=== PATIENT | male | born 1935 | race Caucasian/White ===

== ENCOUNTER → 2023-07-14 08:45 | Outpatient (BNVA) | payer MEDICARE, OTHER, SELFPAY | PROVIDERS: PCP Internal Medicine; Visit Provider Internal Medicine | DX: I48.20 Chronic atrial fibrillation, unspecified (principal); Z51.81 Encounter for therapeutic drug level monitoring; Z79.01 Long term (current) use of anticoagulants | CPT/HCPCS: 85610; 99211 ==

== ENCOUNTER → 2023-07-28 08:48 | Outpatient (BNVA) | payer MEDICARE, OTHER, SELFPAY | PROVIDERS: PCP Internal Medicine; Visit Provider Internal Medicine | DX: I48.20 Chronic atrial fibrillation, unspecified (principal); Z79.01 Long term (current) use of anticoagulants; Z51.81 Encounter for therapeutic drug level monitoring | CPT/HCPCS: 85610; 99211 ==

== ENCOUNTER 2023-08-17 08:52 | Outpatient (AMB) | payer MEDICARE, OTHER, SELFPAY ==
[2023-08-17 08:57] VITALS: BP 112/62; PULSE 57; O2SAT 94; BMI 36.8
--- NOTE | 2023-08-17 08:57 | A.OFFVIS_ITS ---
Vital Signs 08/17/23 08:57 Height 5 ft 10 in Weight 256 lb 13.416 oz BMI 36.8 BP 112/62 Blood Pressure Location Lt brachial Position Sitting Pulse 57 Pulse Source Pulse Oximeter Pulse Oximetry (%) 94 Oxygen Delivery Method Room Air Intake Visit Reasons: Pneumonia : 6 month f/u Intake Note: pt is here for follow up and states he is doing well, just a balance issue,and had pacemaker put in. 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 Allergies oxycodone [From OXYCONTIN] Allergy (Unknown, Verified 08/17/23 09:02) Confusion Medication List - Last Reconciled 08/17/23 by Jelly Russell MD albuterol sulfate 90 mcg/actuation 2 puffs PO Q4-6H PRN aspirin 81 mg PO DAILY Breo Ellipta 200-25 mcg/dose (fluticasone furoate-vilanterol) 1 ea inhalation DAILY NS furosemide (Lasix) 40 mg PO BID@0900,1700 lisinopril 2.5 mg PO DAILY metoprolol succinate ER 25 mg PO DAILY oxybutynin chloride ER 5 mg PO DAILY potassium chloride ER 20 mEq PO DAILY simvastatin 10 mg PO BEDTIME terazosin 10 mg PO BEDTIME trazodone 100 mg PO BEDTIME PRN warfarin 5 mg See Protocol PO DAILY@1700 Do you need a note to return to daycare/school/sports/work: No HPI HPI Pneumonia : 6 month f/u: Details: THIS GENTLEMAN IS 88 YEARS OLD, MODERATELY OBESE WITH DIAGNOSIS OF OBSTRUCTIVE SLEEP APNEA. HE USES CPAP RELIGIOUSLY EVERY NIGHT AND SLEEPS ALMOST 7 HOURS EVERY NIGHT. NO ISSUES WITH THE CPAP DEVICE EXCEPT FOR SLIGHT AIR LEAK. DENIES ANY DAYTIME SLEEPINESS. HE HAS COPD AND IS WELL CONTROLLED WITH BREO ELLIPTA ONCE A DAY AND ALBUTEROL ONLY ONCE IN A WHILE. HIS MAIN ISSUE IS POOR BALANCE BUT HE IS COPING WITH THAT OKAY. [facility] Medical History COPD (chronic obstructive pulmonary disease) INGRID on CPAP Obesity (BMI 35.0-39.9 without comorbidity) Prostate CA Afib Surgical History Hx of cataract surgery Hx of rotator cuff surgery History of bilateral knee replacement Hx of artificial heart valve replacement Social History Household Members: None Housing: House Do you presently have visiting nurse or other home services: No Alcohol intake: never Patient Tobacco Use Status: Former Tobacco user Tobacco use type: Cigar Advance Directives Date on File: 01/20/20 service: Yes Current occupational 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: 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 Review of Systems Const All systems reviewed & are unremarkable except as noted in HPI and below Eyes Reports no additional complaints ENT Reports no additional complaints Card Denies chest pain, Denies irregular heart rhythm, Denies leg edema and Reports dyspnea on exertion Resp Reports as per HPI, Denies cough, Reports dyspnea on exertion and Denies wheezing GI Reports no additional complaints Reports no additional complaints Musc Reports arthralgias (Mild) Skin/Breast Reports system reviewed and no additional complaints, except as documented Neuro Reports no additional complaints Psych Reports no additional complaints Aller/Immun Denies wheezing Physical Exam Vital Signs: Last Vital Signs Pulse 57 08/17/23 08:57 BP 112/62 08/17/23 08:57 Pulse Ox 94 08/17/23 08:57 Oxygen Delivery Method Room Air 08/17/23 08:57 BMI result Body Mass Index 36.8 Const General: comfortable, no acute distress, alert and awake Orientation/consciousness: patient oriented x3 HEENT Head: Yes normal to inspection General nose exam: No nasal polyps present and No nasal discharge present Face and sinus: Yes sinuses nontender Mouth: oropharynx normal Throat: Yes posterior oropharynx normal Eyes General: appearance normal, both eyes and all related structures Neck Neck: Yes normal visual inspection, Yes no lymphadenopathy, Yes trachea midline and Yes no JVD Thyroid: Thyroid normal Chest Chest palpation & inspection: normal inspection of the chest, normal palpation of entire chest wall and no tenderness Resp Other: Percussion note is resonant, breath sounds equal on both sides with slightly prolonged expiratory phase. No wheezes crepitations or rhonchi are heard. Cardio Palpation: normal PMI Rate: regular rate Rhythm: regular rhythm Heart sounds: no gallops and no murmurs Peripheral pulses: Peripheral pulses 2+ throughout GI Palpation (GI): Soft to palpation, Tenderness to palpation present (GI), No hepatosplenomegaly present, Palpable mass present and Other GI palpation findings present (Abdomen is protuberant) Auscultation: normal bowel sounds Back/Spine/Pelvis Thoracic/Lumbar Spine: thoracic and lumbar spine normal to inspection Skin General skin exam: no rashes or lesions noted and dry skin Neuro General: patient oriented x3 and no focal motor deficits Cranial nerves: Yes CN's II-XII intact bilaterally Extrem General: Yes normal to inspection, Yes no clubbing, cyanosis or edema and Yes no calf tenderness Psych Appearance: grossly normal and well kempt Speech and movement: Normal speech and movement present Results Reviewed Results Reviewed: COMPLIANCE REPORT FOR THE LAST 30 NIGHTS IS REVIEWED HE HAS USED 30/30 NIGHTS., 100% AVERAGE USE IT PER NIGHT. 7 HOURS 28 MINUTES PRESSURE SETTING IS 13 CM. THERE IS SLIGHT AIR LEAK MAXIMUM 55.3. RESIDUAL AHI ONLY 2.6 Assessment & Plan Assessment & Plan (1) COPD (chronic obstructive pulmonary disease): Comment: Chronic obstructive pulmonary disease, for the past many years, remaining very stable. Code(s): J44.9 - Chronic obstructive pulmonary disease, unspecified Category: Medical Plan: [place] : CONTINUE BREO 200-25 1 INHALATION DAILY. AND USE ALBUTEROL HFA 2 PUFFS Q 4-6 HOURS ONLY P.R.N. (2) Obesity (BMI 35.0-39.9 without comorbidity): Comment: HIS WEIGHT REMAINS UNCHANGED, HE HAS NO POTENTIAL TO LOSE MUCH WEIGHT, HE CANNOT EXERCISE. AND HE IS ALREADY WATCHING HIS DIET GOOD POSSIBLE. Code(s): E66.9 - Obesity, unspecified Category: Medical Plan: ABOVE (3) INGRID on CPAP: Comment: INGRID IS WELL CONTROLLED HE HAS BEEN USING CPAP VERY REGULARLY , HE IS VERY COMPLIANT. COMPLIANCE REPORT INDICATES EXCELLENT USE OF THE CPAP. Code(s): G47.33 - Obstructive sleep apnea (adult) (pediatric); Z99.89 - Dependence on other enabling machines and devices Category: Medical Plan: COMMENDED FOR GOOD COMPLIANCE AND ADVISED TO CONTINUE USING THE CPAP EVERY NIGHT. Coding Level of Care Code Est Pt Level 3 (60587) Diagnoses COPD (chronic obstructive pulmonary disease) J44.9 Obesity (BMI 35.0-39.9 without comorbidity) E66.9 INGRID on CPAP G47.33; Z99.89
== END 2023-08-17 09:12 | disposition home or self-care (01) ==
PROVIDERS: PCP Internal Medicine; Visit Provider Internal Medicine
DX: J44.9 Chronic obstructive pulmonary disease, unspecified (principal); E66.9 Obesity, unspecified; G47.33 Obstructive sleep apnea (adult) (pediatric); Z99.89 Dependence on other enabling machines and devices
CPT/HCPCS: 99213

== ENCOUNTER → 2023-08-17 08:52 | Outpatient (BNVA) | payer MEDICARE, OTHER, SELFPAY | PROVIDERS: PCP Internal Medicine; Visit Provider Internal Medicine | DX: J44.9 Chronic obstructive pulmonary disease, unspecified (principal); G47.33 Obstructive sleep apnea (adult) (pediatric); E66.9 Obesity, unspecified; Z68.36 Body mass index [BMI] 36.0-36.9, adult; Z79.899 Other long term (current) drug therapy; Z99.89 Dependence on other enabling machines and devices | CPT/HCPCS: 99212 ==

== ENCOUNTER 2023-08-24 09:44 | Outpatient (AMB) | payer MEDICARE, OTHER, SELFPAY ==
--- NOTE | 2023-08-24 09:52 | MHC.OFFVISCO ---
Intake Intake Visit Reasons: Anticoagulation Allergies oxycodone [From OXYCONTIN] Allergy (Unknown, Verified 08/24/23 09:44) Confusion Medication List - Last Reconciled 08/24/23 by Heidy Cerda RN albuterol sulfate 90 mcg/actuation 2 puffs PO Q4-6H PRN aspirin 81 mg PO DAILY Breo Ellipta 200-25 mcg/dose (fluticasone furoate-vilanterol) 1 ea inhalation DAILY NS furosemide (Lasix) 40 mg PO BID@0900,1700 lisinopril 2.5 mg PO DAILY metoprolol succinate ER 25 mg PO DAILY oxybutynin chloride ER 5 mg PO DAILY potassium chloride ER 20 mEq PO DAILY simvastatin 10 mg PO BEDTIME terazosin 10 mg PO BEDTIME trazodone 100 mg PO BEDTIME PRN warfarin 5 mg See Protocol PO DAILY@1700 Nursing Note INR: 2.1- in therapeutic range of 2-3 Medications and supplements reviewed- pt states trazadone may be reduced to 50mg or may stop taking per md due to night issues No changes in health, diet, medications, or supplements, Denies any signs and symptoms of bleeding or bruising or clotting. 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
[2023-08-25 08:12] LABS: Prothrombin Time Whole Bld POC 24.9 sec (11.1-13.5); ~PT, ~INR - Anti Coag Clinic 2.1 (0.9-1.1)
== END 2023-08-24 10:03 | disposition home or self-care (01) ==
LOC: HO.ACS 09:44
PROVIDERS: PCP Internal Medicine; Visit Provider Internal Medicine
DX: Z79.01 Long term (current) use of anticoagulants (principal)

== ENCOUNTER → 2023-08-24 09:44 | Outpatient (BNVA) | payer MEDICARE, OTHER, SELFPAY | PROVIDERS: PCP Internal Medicine; Visit Provider Internal Medicine | DX: I48.20 Chronic atrial fibrillation, unspecified (principal); Z51.81 Encounter for therapeutic drug level monitoring; Z79.01 Long term (current) use of anticoagulants | CPT/HCPCS: 85610; 99211 ==

== ENCOUNTER 2023-09-07 08:49 | Outpatient (AMB) | payer MEDICARE, OTHER, SELFPAY ==
[2023-09-07 08:57] LABS: Prothrombin Time Whole Bld POC 27.3 sec (11.1-13.5); ~PT, ~INR - Anti Coag Clinic 2.3 (0.9-1.1)
--- NOTE | 2023-09-07 09:02 | MHC.OFFVISCO ---
Intake Intake Visit Reasons: Anticoagulation Allergies oxycodone [From OXYCONTIN] Allergy (Unknown, Verified 09/07/23 08:50) Confusion Medication List - Last Reconciled 09/07/23 by Narcisa Cadet, ANTONI albuterol sulfate 90 mcg/actuation 2 puffs PO Q4-6H PRN aspirin 81 mg PO DAILY Breo Ellipta 200-25 mcg/dose (fluticasone furoate-vilanterol) 1 ea inhalation DAILY NS furosemide (Lasix) 40 mg PO BID@0900,1700 lisinopril 2.5 mg PO DAILY metoprolol succinate ER 25 mg PO DAILY oxybutynin chloride ER 5 mg PO DAILY potassium chloride ER 20 mEq PO DAILY simvastatin 10 mg PO BEDTIME terazosin 10 mg PO BEDTIME trazodone 100 mg PO BEDTIME PRN warfarin 5 mg See Protocol PO DAILY@1700 Nursing Note INR: 2.3 in therapeutic range of 2-3 Medications and supplements reviewed: Pt trialed stopping trazadone for 2 days only but then restarted due to nightmares and anxiety No changes in health, diet, medications, or supplements, Denies any signs and symptoms of bleeding or bruising or clotting. 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
== END 2023-09-07 09:07 | disposition home or self-care (01) ==
LOC: HO.ACS 08:49
PROVIDERS: PCP Internal Medicine; Visit Provider Internal Medicine
DX: Z79.01 Long term (current) use of anticoagulants (principal)

== ENCOUNTER → 2023-09-07 08:49 | Outpatient (BNVA) | payer MEDICARE, OTHER, SELFPAY | PROVIDERS: PCP Internal Medicine; Visit Provider Internal Medicine | DX: I48.20 Chronic atrial fibrillation, unspecified (principal); Z79.01 Long term (current) use of anticoagulants; Z51.81 Encounter for therapeutic drug level monitoring | CPT/HCPCS: 85610; 99211 ==

== ENCOUNTER 2023-10-07 09:23 | Outpatient (AMB) | payer MEDICARE, OTHER, SELFPAY ==
--- NOTE | 2023-10-07 09:40 | MHC.OFFVISCO ---
Intake Intake Visit Reasons: Anticoagulation Allergies oxycodone [From OXYCONTIN] Allergy (Unknown, Verified 10/07/23 09:33) Confusion Medication List - Last Reconciled 10/07/23 by Heidy Cerda RN albuterol sulfate 90 mcg/actuation 2 puffs PO Q4-6H PRN aspirin 81 mg PO DAILY Breo Ellipta 200-25 mcg/dose (fluticasone furoate-vilanterol) 1 ea inhalation DAILY NS furosemide (Lasix) 40 mg PO BID@0900,1700 lisinopril 2.5 mg PO DAILY metoprolol succinate ER 25 mg PO DAILY oxybutynin chloride ER 5 mg PO DAILY potassium chloride ER 20 mEq PO DAILY simvastatin 10 mg PO BEDTIME terazosin 10 mg PO BEDTIME trazodone 100 mg PO BEDTIME PRN warfarin 5 mg See Protocol PO DAILY@1700 Nursing Note INR 1.6-?? out of therapeutic range of 2-3 Medications and supplements reviewed Patient status: pt amb with cane, denies missed dose Medications or supplements: no changes Diet: same Denies any signs and symptoms of bleeding or clotting or unusual bruising Bleeding, bruising, clotting discussed - trauma to left forearm/bandaid Nutritional guidance given: no greens for 2-3 days, eat reds to raise food list reviewed Dose: 7.5mg today then cont 5mg x 6, 2.5mg x 1 F/U INR Date : 1 week?? Patient verbalizing understanding of instructions given. pt states scheduled for proc 11/08/23- flexor tendon release left foot - states has been instructed to hold warfarin for 3 days Anti-Coag Initial Assessment Social Hx Patient Tobacco Use Status: Former Tobacco user Tobacco use type: Cigar alcohol intake: never Coding Level of Care Code Est Patient Level 1 Diagnoses Current use of anticoagulant therapy Z79.01 Results AMB INR Fingerstick AMB INR Fingerstick 1.6 Last Edit by Heidy Cerda RN on 10/07/23 09:43 Assessment & Plan Assessment & Plan (1) Current use of anticoagulant therapy: Code(s): Z79.01 - correction (current) use of anticoagulants Category: Medical
[2023-10-07 09:41] LABS: Prothrombin Time Whole Bld POC 19.7 sec (11.1-13.5); ~PT, ~INR - Anti Coag Clinic 1.6 (0.9-1.1)
== END 2023-10-07 09:58 | disposition home or self-care (01) ==
LOC: HO.ACS 09:23
PROVIDERS: PCP Internal Medicine; Visit Provider Internal Medicine
DX: Z79.01 Long term (current) use of anticoagulants (principal)

== ENCOUNTER → 2023-10-07 09:23 | Outpatient (BNVA) | payer MEDICARE, OTHER, SELFPAY | PROVIDERS: PCP Internal Medicine; Visit Provider Internal Medicine | DX: I48.20 Chronic atrial fibrillation, unspecified (principal); Z79.01 Long term (current) use of anticoagulants; Z51.81 Encounter for therapeutic drug level monitoring | CPT/HCPCS: 85610; 99211 ==

== ENCOUNTER 2023-10-12 09:44 | Outpatient (AMB) | payer MEDICARE, OTHER, SELFPAY ==
[2023-10-12 10:08] LABS: Prothrombin Time Whole Bld POC 23.5 sec (11.1-13.5)
--- NOTE | 2023-10-12 10:08 | MHC.OFFVISCO ---
Intake Intake Visit Reasons: Anticoagulation Allergies oxycodone [From OXYCONTIN] Allergy (Unknown, Verified 10/12/23 10:02) Confusion Medication List - Last Reconciled 10/12/23 by Heidy Cerda RN albuterol sulfate 90 mcg/actuation 2 puffs PO Q4-6H PRN aspirin 81 mg PO DAILY Breo Ellipta 200-25 mcg/dose (fluticasone furoate-vilanterol) 1 ea inhalation DAILY NS furosemide (Lasix) 40 mg PO BID@0900,1700 lisinopril 2.5 mg PO DAILY metoprolol succinate ER 25 mg PO DAILY oxybutynin chloride ER 5 mg PO DAILY potassium chloride ER 20 mEq PO DAILY simvastatin 10 mg PO BEDTIME terazosin 10 mg PO BEDTIME trazodone 100 mg PO BEDTIME PRN warfarin 5 mg See Protocol PO DAILY@1700 Nursing Note INR: 2.0- in therapeutic range of 2-3 Medications and supplements reviewed No changes in health, diet, medications, or supplements, Denies any signs and symptoms of bleeding or bruising or clotting. Bleeding, bruising, clotting discussed Nutritional guidance given -pt states has not had any greens, Dose: 5mg x 7 F/U INR: 2 weeks Patient verbalizes understanding of instructions given upcoming surgery 11/08/23. 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
== END 2023-10-12 10:47 | disposition home or self-care (01) ==
LOC: HO.ACS 09:44
PROVIDERS: PCP Internal Medicine; Visit Provider Internal Medicine
DX: Z79.01 Long term (current) use of anticoagulants (principal)

== ENCOUNTER → 2023-10-12 09:44 | Outpatient (BNVA) | payer MEDICARE, OTHER, SELFPAY | PROVIDERS: PCP Internal Medicine; Visit Provider Internal Medicine | DX: I48.20 Chronic atrial fibrillation, unspecified (principal); Z51.81 Encounter for therapeutic drug level monitoring; Z79.01 Long term (current) use of anticoagulants | CPT/HCPCS: 85610; 99211 ==

== ENCOUNTER 2023-10-26 09:25 | Outpatient (AMB) | payer MEDICARE, OTHER, SELFPAY ==
--- NOTE | 2023-10-26 10:03 | MHC.OFFVISCO ---
Intake Intake Visit Reasons: Anticoagulation Allergies oxycodone [From OXYCONTIN] Allergy (Unknown, Verified 10/26/23 09:43) Confusion Medication List - Last Reconciled 10/26/23 by Rafia White RN albuterol sulfate 90 mcg/actuation 2 puffs PO Q4-6H PRN aspirin 81 mg PO DAILY Breo Ellipta 200-25 mcg/dose (fluticasone furoate-vilanterol) 1 ea inhalation DAILY NS furosemide (Lasix) 40 mg PO BID@0900,1700 lisinopril 2.5 mg PO DAILY metoprolol succinate ER 25 mg PO DAILY oxybutynin chloride ER 5 mg PO DAILY potassium chloride ER 20 mEq PO DAILY simvastatin 10 mg PO BEDTIME terazosin 10 mg PO BEDTIME trazodone 100 mg PO BEDTIME PRN warfarin 5 mg See Protocol PO DAILY@1700 Nursing Note INR: 2.6 in therapeutic range Medications and supplements reviewed Pt to have flexor release left foot 11/08/23 with a 3 day hold - minor procedure no lovenox bridge, Denies any signs and symptoms of bleeding or bruising or clotting. Bleeding, bruising, clotting discussed Nutritional guidance given - resume greens 1 serving per week, after prpcedure avoid all greens and eat orange and reds Dose: 5mg dauly then hold 3 days per md then resume a booster dose of 7.5mg x 2 days then 5mg daily and f/u 1 week post procedure due to healong and ambulation capabilities F/U INR: 11/16/23 Patient verbalizes understanding of instructions given Anti-Coag Initial Assessment Social Hx Patient Tobacco Use Status: Former Tobacco user Tobacco use type: Cigar alcohol intake: never Coding Level of Care Code Est Patient Level 1 Diagnoses Current use of anticoagulant therapy Z79.01 Results AMB INR Fingerstick AMB INR Fingerstick 2.6 Last Edit by Rafia White RN on 10/26/23 09:56 MANUAL ENTRIES REQUIRED FOR POOR INTERFACING CAPABILITIES OF THE SYSTEM Assessment & Plan Assessment & Plan (1) Current use of anticoagulant therapy: Code(s): Z79.01 - [facility] (current) use of anticoagulants Category: Medical
[2023-10-26 10:18] LABS: Prothrombin Time Whole Bld POC 30.8 sec (11.1-13.5); ~PT, ~INR - Anti Coag Clinic 2.6 (0.9-1.1)
== END 2023-10-26 10:08 | disposition home or self-care (01) ==
LOC: HO.ACS 09:25
PROVIDERS: PCP Internal Medicine; Visit Provider Internal Medicine
DX: Z79.01 Long term (current) use of anticoagulants (principal)

== ENCOUNTER → 2023-10-26 09:25 | Outpatient (BNVA) | payer MEDICARE, OTHER, SELFPAY | PROVIDERS: PCP Internal Medicine; Visit Provider Internal Medicine | DX: I48.20 Chronic atrial fibrillation, unspecified (principal); Z79.01 Long term (current) use of anticoagulants; Z51.81 Encounter for therapeutic drug level monitoring | CPT/HCPCS: 85610; 99211 ==

== ENCOUNTER 2023-11-16 08:47 | Outpatient (AMB) | payer MEDICARE, OTHER, SELFPAY ==
[2023-11-16 09:09] LABS: Prothrombin Time Whole Bld POC 29.4 sec (11.1-13.5); ~PT, ~INR - Anti Coag Clinic 2.5 (0.9-1.1)
--- NOTE | 2023-11-16 09:09 | MHC.OFFVISCO ---
Intake Intake Visit Reasons: Anticoagulation Allergies oxycodone [From OXYCONTIN] Allergy (Unknown, Verified 11/16/23 09:02) Confusion Medication List - Last Reconciled 11/16/23 by Heidy Cerda RN albuterol sulfate 90 mcg/actuation 2 puffs PO Q4-6H PRN aspirin 81 mg PO DAILY Breo Ellipta 200-25 mcg/dose (fluticasone furoate-vilanterol) 1 ea inhalation DAILY NS furosemide (Lasix) 40 mg PO BID@0900,1700 lisinopril 2.5 mg PO DAILY metoprolol succinate ER 25 mg PO DAILY oxybutynin chloride ER 5 mg PO DAILY potassium chloride ER 20 mEq PO DAILY simvastatin 10 mg PO BEDTIME terazosin 10 mg PO BEDTIME trazodone 100 mg PO BEDTIME PRN warfarin 5 mg See Protocol PO DAILY@1700 Nursing Note INR: 2.5- in therapeutic range of 2-3 Medications and supplements reviewed- no changes No changes in health, diet, medications, or supplements, Denies any signs and symptoms of bleeding or bruising or clotting. Bleeding, bruising, clotting discussed Nutritional guidance given - pt has not had any greens [employer] enc 1-2 times a week Dose: 5mg x 7 F/U INR: 2 weeks Patient verbalizes understanding of instructions given pt s/p foot procedure on 11/08/23- 3 day hold of warfarin, restarted with 7.5mg on 11/08/23 and 11/09/23 Anti-Coag Initial Assessment Social Hx Patient Tobacco Use Status: Former Tobacco user Tobacco use type: Cigar alcohol intake: never Coding Level of Care Code Est Patient Level 1 Diagnoses Current use of anticoagulant therapy Z79.01 Assessment & Plan Assessment & Plan (1) Current use of anticoagulant therapy: Code(s): Z79.01 - [facility] (current) use of anticoagulants Category: Medical
== END 2023-11-16 09:18 | disposition home or self-care (01) ==
LOC: HO.ACS 08:47
PROVIDERS: PCP Internal Medicine; Visit Provider Internal Medicine
DX: Z79.01 Long term (current) use of anticoagulants (principal)

== ENCOUNTER → 2023-11-16 08:47 | Outpatient (BNVA) | payer MEDICARE, OTHER, SELFPAY | PROVIDERS: PCP Internal Medicine; Visit Provider Internal Medicine | DX: I48.20 Chronic atrial fibrillation, unspecified (principal); Z79.01 Long term (current) use of anticoagulants; Z51.81 Encounter for therapeutic drug level monitoring | CPT/HCPCS: 85610; 99211 ==

== ENCOUNTER 2023-11-30 08:53 | Outpatient (AMB) | payer MEDICARE, OTHER, SELFPAY ==
[2023-11-30 09:35] LABS: Prothrombin Time Whole Bld POC 24.2 sec (11.1-13.5)
--- NOTE | 2023-11-30 09:36 | MHC.OFFVISCO ---
Intake Intake Visit Reasons: Anticoagulation Allergies oxycodone [From OXYCONTIN] Allergy (Unknown, Verified 11/30/23 09:26) Confusion Medication List - Last Reconciled 11/30/23 by Heidy Cerda RN albuterol sulfate 90 mcg/actuation 2 puffs PO Q4-6H PRN aspirin 81 mg PO DAILY Breo Ellipta 200-25 mcg/dose (fluticasone furoate-vilanterol) 1 ea inhalation DAILY NS furosemide (Lasix) 40 mg PO BID@0900,1700 lisinopril 2.5 mg PO DAILY metoprolol succinate ER 25 mg PO BID oxybutynin chloride ER 5 mg PO DAILY potassium chloride ER 20 mEq PO BID simvastatin 10 mg PO BEDTIME terazosin 10 mg PO BEDTIME trazodone 100 mg PO BEDTIME PRN warfarin 5 mg See Protocol PO DAILY@1700 Nursing Note INR: 2.0- in therapeutic range of 2-3 Medications and supplements reviewed- potassium and metoprolol increased to bid- both no interaction with warfarin No changes in health, diet, medications, or supplements, Denies any signs and symptoms of bleeding or bruising or clotting. Bleeding, bruising, clotting discussed Nutritional guidance given - pt states has had one green in the past 2 weeks, would like to eat more greens enc to be consistent in dietary- eat greens twice per week or more Dose: 5mg x 6, 7.5mg x 1 per pt request for dosing increase F/U INR: 2 weeks Patient verbalizes understanding of instructions given Anti-Coag Initial Assessment Social Hx Patient Tobacco Use Status: Former Tobacco user Tobacco use type: Cigar alcohol intake: never Coding Level of Care Code Est Patient Level 1 Diagnoses Current use of anticoagulant therapy Z79.01 Assessment & Plan Assessment & Plan (1) Current use of anticoagulant therapy: Code(s): Z79.01 - skilled nursing (current) use of anticoagulants Category: Medical
== END 2023-11-30 09:51 | disposition home or self-care (01) ==
LOC: HO.ACS 08:53
PROVIDERS: PCP Internal Medicine; Visit Provider Internal Medicine
DX: Z79.01 Long term (current) use of anticoagulants (principal)

== ENCOUNTER → 2023-11-30 08:53 | Outpatient (BNVA) | payer MEDICARE, OTHER, SELFPAY | PROVIDERS: PCP Internal Medicine; Visit Provider Internal Medicine | DX: I48.20 Chronic atrial fibrillation, unspecified (principal); Z79.01 Long term (current) use of anticoagulants; Z51.81 Encounter for therapeutic drug level monitoring | CPT/HCPCS: 85610; 99211 ==

== ENCOUNTER 2023-12-14 08:52 | Outpatient (AMB) | payer MEDICARE, OTHER, SELFPAY ==
[2023-12-14 09:41] LABS: Prothrombin Time Whole Bld POC 23.9 sec (11.1-13.5)
--- NOTE | 2023-12-14 09:50 | MHC.OFFVISCO ---
Intake Intake Visit Reasons: Anticoagulation Allergies oxycodone [From OXYCONTIN] Allergy (Unknown, Verified 12/14/23 09:40) Confusion Medication List - Last Reconciled 12/14/23 by Narcisa Cadet RN albuterol sulfate 90 mcg/actuation 2 puffs PO Q4-6H PRN aspirin 81 mg PO DAILY Breo Ellipta 200-25 mcg/dose (fluticasone furoate-vilanterol) 1 ea inhalation DAILY NS furosemide (Lasix) 40 mg PO BID@0900,1700 lisinopril 2.5 mg PO DAILY metoprolol succinate ER 25 mg PO BID oxybutynin chloride ER 5 mg PO DAILY potassium chloride ER 20 mEq PO BID simvastatin 10 mg PO BEDTIME terazosin 10 mg PO BEDTIME trazodone 100 mg PO BEDTIME PRN warfarin 5 mg See Protocol PO DAILY@1700 Nursing Note INR: 2.0 in therapeutic range of 2-3 Medications and supplements reviewed No changes in health, diet, medications, or supplements, Denies any signs and symptoms of bleeding or bruising or clotting. Bleeding, bruising, clotting discussed Nutritional guidance given Dose: increase weekly dose by 2.5mg to 5mg X 5 days and 7.5mg X 2 days F/U INR: 2 weeks Patient verbalizes understanding of instructions given Anti-Coag Initial Assessment Social Hx Patient Tobacco Use Status: Former Tobacco user Tobacco use type: Cigar alcohol intake: never Coding Level of Care Code Est Patient Level 1 Diagnoses Current use of anticoagulant therapy Z79.01 Assessment & Plan Assessment & Plan (1) Current use of anticoagulant therapy: Code(s): Z79.01 - custodial (current) use of anticoagulants Category: Medical
== END 2023-12-14 09:53 | disposition home or self-care (01) ==
LOC: HO.ACS 08:52
PROVIDERS: PCP Internal Medicine; Visit Provider Internal Medicine
DX: Z79.01 Long term (current) use of anticoagulants (principal)

== ENCOUNTER → 2023-12-14 08:52 | Outpatient (BNVA) | payer MEDICARE, OTHER, SELFPAY | PROVIDERS: PCP Internal Medicine; Visit Provider Internal Medicine | DX: I48.20 Chronic atrial fibrillation, unspecified (principal); Z79.01 Long term (current) use of anticoagulants; Z51.81 Encounter for therapeutic drug level monitoring | CPT/HCPCS: 85610; 99211 ==

== ENCOUNTER 2023-12-29 08:43 | Outpatient (AMB) | payer MEDICARE, OTHER, SELFPAY ==
[2023-12-29 09:00] LABS: Prothrombin Time Whole Bld POC 31.4 sec (11.1-13.5); ~PT, ~INR - Anti Coag Clinic 2.6 (0.9-1.1)
--- NOTE | 2023-12-29 09:00 | MHC.OFFVISCO ---
Intake Intake Visit Reasons: Anticoagulation Allergies oxycodone [From OXYCONTIN] Allergy (Unknown, Verified 12/29/23 08:53) Confusion Medication List - Last Reconciled 12/29/23 by Heidy Cerda RN albuterol sulfate 90 mcg/actuation 2 puffs PO Q4-6H PRN aspirin 81 mg PO DAILY Breo Ellipta 200-25 mcg/dose (fluticasone furoate-vilanterol) 1 ea inhalation DAILY NS furosemide (Lasix) 40 mg PO BID@0900,1700 lisinopril 2.5 mg PO DAILY metoprolol succinate ER 25 mg PO BID oxybutynin chloride ER 5 mg PO DAILY potassium chloride ER 20 mEq PO BID simvastatin 10 mg PO BEDTIME terazosin 10 mg PO BEDTIME trazodone 100 mg PO BEDTIME PRN warfarin 5 mg See Protocol PO DAILY@1700 Nursing Note INR: 2.6- in therapeutic range 2-3 Medications and supplements reviewed- no changes No changes in health, diet, medications, or supplements, Denies any signs and symptoms of bleeding or bruising or clotting. Bleeding, bruising, clotting discussed Nutritional guidance given Dose: 5mg x 5, 7.5mg x2 F/U INR: pt req 3 weeks Patient verbalizes understanding of instructions given Anti-Coag Initial Assessment Social Hx Patient Tobacco Use Status: Former Tobacco user Tobacco use type: Cigar alcohol intake: never Coding Level of Care Code Est Patient Level 1 Diagnoses Current use of anticoagulant therapy Z79.01 Assessment & Plan Assessment & Plan (1) Current use of anticoagulant therapy: Code(s): Z79.01 - halfway (current) use of anticoagulants Category: Medical
== END 2023-12-29 09:06 | disposition home or self-care (01) ==
LOC: HO.ACS 08:43
PROVIDERS: PCP Internal Medicine; Visit Provider Internal Medicine
DX: Z79.01 Long term (current) use of anticoagulants (principal)

== ENCOUNTER → 2023-12-29 08:43 | Outpatient (BNVA) | payer MEDICARE, OTHER, SELFPAY | PROVIDERS: PCP Internal Medicine; Visit Provider Internal Medicine | DX: I48.20 Chronic atrial fibrillation, unspecified (principal); Z79.01 Long term (current) use of anticoagulants; Z51.81 Encounter for therapeutic drug level monitoring | CPT/HCPCS: 85610; 99211 ==

== ENCOUNTER 2024-01-18 08:45 | Outpatient (AMB) | payer MEDICARE, OTHER, SELFPAY ==
[2024-01-18 08:54] LABS: Prothrombin Time Whole Bld POC 36.8 sec (11.1-13.5); ~PT, ~INR - Anti Coag Clinic 3.1 (0.9-1.1)
--- NOTE | 2024-01-18 08:59 | MHC.OFFVISCO ---
Intake Intake Visit Reasons: Anticoagulation Allergies oxycodone [From OXYCONTIN] Allergy (Unknown, Verified 01/18/24 08:46) Confusion Medication List - Last Reconciled 01/18/24 by Narcisa Cadet RN albuterol sulfate 90 mcg/actuation 2 puffs PO Q4-6H PRN aspirin 81 mg PO DAILY Breo Ellipta 200-25 mcg/dose (fluticasone furoate-vilanterol) 1 ea inhalation DAILY NS furosemide (Lasix) 40 mg PO BID@0900,1700 lisinopril 2.5 mg PO DAILY metoprolol succinate ER 25 mg PO BID oxybutynin chloride ER 5 mg PO DAILY potassium chloride ER 20 mEq PO BID simvastatin 10 mg PO BEDTIME terazosin 10 mg PO BEDTIME trazodone 100 mg PO BEDTIME PRN warfarin 5 mg See Protocol PO DAILY@1700 Nursing Note INR 3.1?? out of therapeutic range Medications and supplements reviewed Patient status: well Medications or supplements: no changes Diet: usual diet for pt. States he beets last night. Denies any signs and symptoms of bleeding or clotting or unusual bruising Bleeding, bruising, clotting discussed Nutritional guidance given: to have a serving of greens today Dose: usual dose of 5mg X 5 days and 7.5mg X 2 days F/U INR Date : 3 weeks Patient verbalizing understanding of instructions given. Anti-Coag Initial Assessment Social Hx Patient Tobacco Use Status: Former Tobacco user Tobacco use type: Cigar alcohol intake: never Coding Level of Care Code Est Patient Level 1 Diagnoses Current use of anticoagulant therapy Z79.01 Assessment & Plan Assessment & Plan (1) Current use of anticoagulant therapy: Code(s): Z79.01 - roasterman (current) use of anticoagulants Category: Medical
== END 2024-01-18 09:04 | disposition home or self-care (01) ==
LOC: HO.ACS 08:45
PROVIDERS: PCP Internal Medicine; Visit Provider Internal Medicine
DX: Z79.01 Long term (current) use of anticoagulants (principal)

== ENCOUNTER → 2024-01-18 08:45 | Outpatient (BNVA) | payer MEDICARE, OTHER, SELFPAY | PROVIDERS: PCP Internal Medicine; Visit Provider Internal Medicine | DX: I48.20 Chronic atrial fibrillation, unspecified (principal); Z79.01 Long term (current) use of anticoagulants; Z51.81 Encounter for therapeutic drug level monitoring | CPT/HCPCS: 85610; 99211 ==

== ENCOUNTER 2024-02-08 08:51 | Outpatient (AMB) | payer MEDICARE, OTHER, SELFPAY ==
[2024-02-08 09:01] LABS: ~PT, ~INR - Anti Coag Clinic 3.3 (0.9-1.1)
--- NOTE | 2024-02-08 09:12 | MHC.OFFVISCO ---
Intake Intake Visit Reasons: Anticoagulation Allergies oxycodone [From OXYCONTIN] Allergy (Unknown, Verified 02/08/24 08:55) Confusion Medication List - Last Reconciled 02/08/24 by Narcisa Cadet RN albuterol sulfate 90 mcg/actuation 2 puffs PO Q4-6H PRN aspirin 81 mg PO DAILY Breo Ellipta 200-25 mcg/dose (fluticasone furoate-vilanterol) 1 ea inhalation DAILY NS furosemide (Lasix) 40 mg PO BID@0900,1700 lisinopril 2.5 mg PO DAILY metoprolol succinate ER 25 mg PO BID oxybutynin chloride ER 5 mg PO DAILY potassium chloride ER 20 mEq PO BID simvastatin 10 mg PO BEDTIME terazosin 10 mg PO BEDTIME trazodone 100 mg PO BEDTIME PRN warfarin 5 mg See Protocol PO DAILY@1700 Nursing Note INR: 3.3 in therapeutic range of 2-3 Medications and supplements reviewed No changes in health, diet, medications, or supplements, Denies any signs and symptoms of bleeding or bruising or clotting. Bleeding, bruising, clotting discussed Nutritional guidance given Dose: decrease tomorrow's dose to 5mg (7.5mg) then resume usual dose of 5mg X 5 days and 7.5mg X 2 days F/U INR: 3 weeks Patient verbalizes understanding of instructions given Anti-Coag Initial Assessment Social Hx Patient Tobacco Use Status: Former Tobacco user Tobacco use type: Cigar alcohol intake: never Coding Level of Care Code Est Patient Level 1 Diagnoses Current use of anticoagulant therapy Z79.01 Results AMB INR Fingerstick AMB INR Fingerstick 3.3 Last Edit by Narcisa Cadet RN on 02/08/24 09:05 interface delay Assessment & Plan Assessment & Plan (1) Current use of anticoagulant therapy: Code(s): Z79.01 - [facility] (current) use of anticoagulants Category: Medical
== END 2024-02-08 09:15 | disposition home or self-care (01) ==
LOC: HO.ACS 08:51
PROVIDERS: PCP Internal Medicine; Visit Provider Internal Medicine
DX: Z79.01 Long term (current) use of anticoagulants (principal)

== ENCOUNTER → 2024-02-08 08:51 | Outpatient (BNVA) | payer MEDICARE, OTHER, SELFPAY | PROVIDERS: PCP Internal Medicine; Visit Provider Internal Medicine | DX: I48.20 Chronic atrial fibrillation, unspecified (principal); Z79.01 Long term (current) use of anticoagulants; Z51.81 Encounter for therapeutic drug level monitoring | CPT/HCPCS: 85610; 99211 ==

== ENCOUNTER 2024-02-17 08:53 | Outpatient (AMB) | payer MEDICARE, OTHER, SELFPAY ==
[2024-02-17 09:02] VITALS: BP 124/66; PULSE 68; O2SAT 97; BMI 37.5
--- NOTE | 2024-02-17 09:02 | A.OFFVIS_ITS ---
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 Voicer: Voicer offered & declined Accompanied by: Self / Same As Patient Allergies oxycodone [From OXYCONTIN] Allergy (Unknown, Verified 02/17/24 09:23) Confusion Medication List - Last Reconciled 02/17/24 by Jelly Russell MD albuterol sulfate 90 mcg/actuation 2 puffs PO Q4-6H PRN aspirin 81 mg PO DAILY Breo Ellipta 200-25 mcg/dose (fluticasone furoate-vilanterol) 1 ea inhalation DAILY NS furosemide (Lasix) 40 mg PO BID@0900,1700 lisinopril 2.5 mg PO DAILY metoprolol succinate ER 25 mg PO BID oxybutynin chloride ER 5 mg PO DAILY potassium chloride ER 20 mEq PO BID simvastatin 10 mg PO BEDTIME terazosin 10 mg PO BEDTIME trazodone 100 mg PO BEDTIME PRN warfarin 5 mg See Protocol PO DAILY@1700 Do you need a note to return to daycare/school/sports/work: No HPI HPI Pneumonia: Details: This 88 years old very pleasant gentleman is here for his routine follow-up. He is going to be 89 years and still in good spirits, doing very well. Uses CPAP regularly every night. The sleep is interrupted but he makes up 6-7 hours of sleep with the CPAP. Breathing has been okay, luckily no infection or exacerbation. Continues to use Breo 200-25 once a day, Insurance has suggested him to go on [place] because it will be less costly, but he does not want to use an agent which is twice a day . He feels comfortable with using Breo only once a day. 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 Social History Household Members: None Housing: House Do you presently have visiting nurse or other home services: No Alcohol intake: never Patient Tobacco Use Status: Former Tobacco user Tobacco use type: Cigar Advance Directives Date on File: 01/20/20 service: Yes Current occupational status: 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 Review of Systems Const All systems reviewed & are unremarkable except as noted in HPI and below Eyes Reports no additional complaints ENT Reports no additional complaints Card Denies chest pain, Denies irregular heart rhythm, Denies leg edema and Reports dyspnea on exertion Resp Reports as per HPI, Denies cough, Reports dyspnea on exertion and Denies wheezing GI Reports no additional complaints Reports no additional complaints Musc Reports arthralgias (Mild) Skin/Breast Reports system reviewed and no additional complaints, except as documented Neuro Reports no additional complaints Psych Reports no additional complaints Aller/Immun Denies wheezing Physical Exam Vital Signs: Last Vital Signs Pulse 68 02/17/24 09:02 BP 124/66 02/17/24 09:02 Pulse Ox 97 02/17/24 09:02 Oxygen Delivery Method Room Air 02/17/24 09:02 BMI result Body Mass Index 37.5 Const General: comfortable, no acute distress, alert and awake Orientation/consciousness: patient oriented x3 HEENT Head: Yes normal to inspection General nose exam: No nasal polyps present and No nasal discharge present Face and sinus: Yes sinuses nontender Mouth: oropharynx normal Throat: Yes posterior oropharynx normal Eyes General: appearance normal, both eyes and all related structures Neck Neck: Yes normal visual inspection, Yes no lymphadenopathy, Yes trachea midline and Yes no JVD Thyroid: Thyroid normal Chest Chest palpation & inspection: normal inspection of the chest, normal palpation of entire chest wall and no tenderness Resp Other: Percussion note is resonant, breath sounds equal on both sides with slightly prolonged expiratory phase. No wheezes crepitations or rhonchi are heard. Cardio Palpation: normal PMI Rate: regular rate Rhythm: regular rhythm Heart sounds: no gallops and no murmurs Peripheral pulses: Peripheral pulses 2+ throughout GI Palpation (GI): Soft to palpation, Tenderness to palpation present (GI), No hepatosplenomegaly present, Palpable mass present and Other GI palpation findings present (Abdomen is protuberant) Auscultation: normal bowel sounds Back/Spine/Pelvis Thoracic/Lumbar Spine: thoracic and lumbar spine normal to inspection Skin General skin exam: no rashes or lesions noted and dry skin Neuro General: patient oriented x3 and no focal motor deficits Cranial nerves: Yes CN's II-XII intact bilaterally Extrem General: Yes normal to inspection, Yes no clubbing, cyanosis or edema and Yes no calf tenderness Psych Appearance: grossly normal and well kempt Speech and movement: Normal speech and movement present Assessment & Plan Assessment & Plan (1) INGRID on CPAP: Comment: INGRID IS WELL CONTROLLED HE HAS BEEN USING CPAP VERY REGULARLY , HE IS VERY COMPLIANT. SAY IS THAT HE GETS LOT OF DREAMS, SLEEP IS INTERRUPTED, BUT HE PUTS ON THE CPAP BACK AND GOES TO SLEEP , IN SEGMENTS OF ABOUT 2 HOURS. Code(s): G47.33 - Obstructive sleep apnea (adult) (pediatric); Z99.89 - Dependence on other enabling machines and devices Category: Medical Plan: CONTINUE USING THE CPAP REGULARLY, AT LEAST FOR 6 HOURS PER NIGHT. (2) Obesity (BMI 35.0-39.9 without comorbidity): Comment: HIS WEIGHT REMAINS UNCHANGED, HE HAS NO POTENTIAL TO LOSE MUCH WEIGHT, HE CANNOT EXERCISE. AND HE IS ALREADY WATCHING HIS DIET GOOD POSSIBLE. Code(s): E66.9 - Obesity, unspecified Category: Medical Plan: CONTINUE TO STAY ACTIVE POSSIBLE, RESTRICT THE INTAKE OF SALT AND CARBOHYDRATES. (3) COPD (chronic obstructive pulmonary disease): Comment: HIS COPD FOR THE PAST MANY YEARS, IS REMAINING STABLE. AFTER AUGUST 2023 HE HAS HAD NO RECURRENT. RESPIRATORY INFECTION NOTED IN HPI, HE PREFERS TO STAY ON BREO BECAUSE IT IS ONLY ONCE A DAY. Code(s): J44.9 - Chronic obstructive pulmonary disease, unspecified Category: Medical Plan: CONTINUE BREO 200-251 INHALATION DAILY USE ALBUTEROL 2 PUFFS Q 4-6 HOURS ONLY P.R.N. Coding Level of Care Code Est Pt Level 3 (08298) Diagnoses INGRID on CPAP G47.33; Z99.89 Obesity (BMI 35.0-39.9 without comorbidity) E66.9 COPD (chronic obstructive pulmonary disease) J44.9
== END 2024-02-17 09:23 | disposition home or self-care (01) ==
LOC: HO.HPS 08:54
PROVIDERS: PCP Internal Medicine; Visit Provider Internal Medicine
DX: G47.33 Obstructive sleep apnea (adult) (pediatric) (principal); Z99.89 Dependence on other enabling machines and devices; E66.9 Obesity, unspecified; J44.9 Chronic obstructive pulmonary disease, unspecified
CPT/HCPCS: 99213

== ENCOUNTER 2024-02-29 08:51 | Outpatient (AMB) | payer MEDICARE, OTHER, SELFPAY ==
[2024-02-29 08:58] LABS: Prothrombin Time Whole Bld POC 52.6 sec (11.1-13.5); ~PT, ~INR - Anti Coag Clinic 4.4 (0.9-1.1)
--- NOTE | 2024-02-29 09:05 | MHC.OFFVISCO ---
Intake Intake Visit Reasons: Anticoagulation Allergies oxycodone [From OXYCONTIN] Allergy (Unknown, Verified 02/29/24 08:53) Confusion Medication List - Last Reconciled 02/29/24 by Narcisa Cadet RN albuterol sulfate 90 mcg/actuation 2 puffs PO Q4-6H PRN aspirin 81 mg PO DAILY Breo Ellipta 200-25 mcg/dose (fluticasone furoate-vilanterol) 1 ea inhalation DAILY NS furosemide (Lasix) 40 mg PO BID@0900,1700 lisinopril 2.5 mg PO DAILY metoprolol succinate ER 25 mg PO BID oxybutynin chloride ER 5 mg PO DAILY potassium chloride ER 20 mEq PO BID simvastatin 10 mg PO BEDTIME terazosin 10 mg PO BEDTIME trazodone 100 mg PO BEDTIME PRN warfarin 5 mg See Protocol PO DAILY@1700 Nursing Note INR 4.4?out of therapeutic range of 2-3 Medications and supplements reviewed Patient status: well Medications or supplements: no changes Diet: usual diet for pt Denies any signs and symptoms of bleeding or clotting or unusual bruising Bleeding, bruising, clotting discussed Nutritional guidance given: to have a serving of greens today Dose: hold today's dose and decrease tomorrow's dose to 2.5mg (7.5mg) then resume usual dose of 5mg X 5 days and 7.5mg X 2 days F/U INR Date : 1 week?? Patient verbalizing understanding of instructions given. 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
== END 2024-02-29 09:07 | disposition home or self-care (01) ==
LOC: HO.ACS 08:51
PROVIDERS: PCP Internal Medicine; Visit Provider Internal Medicine
DX: Z79.01 Long term (current) use of anticoagulants (principal)

== ENCOUNTER → 2024-02-29 08:51 | Outpatient (BNVA) | payer MEDICARE, OTHER, SELFPAY | PROVIDERS: PCP Internal Medicine; Visit Provider Internal Medicine | DX: I48.20 Chronic atrial fibrillation, unspecified (principal); Z79.01 Long term (current) use of anticoagulants; Z51.81 Encounter for therapeutic drug level monitoring | CPT/HCPCS: 85610; 99211 ==

== ENCOUNTER 2024-03-07 08:44 | Outpatient (AMB) | payer MEDICARE, OTHER, SELFPAY ==
--- NOTE | 2024-03-07 09:13 | MHC.OFFVISCO ---
Intake Intake Visit Reasons: Anticoagulation Allergies oxycodone [From OXYCONTIN] Allergy (Unknown, Verified 03/07/24 08:50) Confusion Medication List - Last Reconciled 03/07/24 by Rafia White RN albuterol sulfate 90 mcg/actuation 2 puffs PO Q4-6H PRN aspirin 81 mg PO DAILY Breo Ellipta 200-25 mcg/dose (fluticasone furoate-vilanterol) 1 ea inhalation DAILY NS furosemide (Lasix) 40 mg PO BID@0900,1700 lisinopril 2.5 mg PO DAILY metoprolol succinate ER 25 mg PO BID potassium chloride ER 20 mEq PO BID simvastatin 10 mg PO BEDTIME terazosin 10 mg PO BEDTIME trazodone 100 mg PO BEDTIME PRN warfarin 5 mg See Protocol PO DAILY@1700 Nursing Note INR: 1.9 in therapeutic range Medications and supplements reviewed No changes in health, diet, medications, or supplements, Denies any signs and symptoms of bleeding or bruising or clotting. 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 Patient verbalizes understanding of instructions given Anti-Coag Initial Assessment Social Hx Patient Tobacco Use Status: Former Tobacco user Tobacco use type: Cigar alcohol intake: never Coding Level of Care Code Est Patient Level 1 Diagnoses Current use of anticoagulant therapy Z79.01 Results AMB INR Fingerstick AMB INR Fingerstick 1.9 Last Edit by Rafia White RN on 03/07/24 08:54 MANUAL ENTRY Assessment & Plan Assessment & Plan (1) Current use of anticoagulant therapy: Code(s): 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
[2024-03-07 09:27] LABS: Prothrombin Time Whole Bld POC 22.5 sec (11.1-13.5); ~PT, ~INR - Anti Coag Clinic 1.9 (0.9-1.1)
== END 2024-03-07 09:16 | disposition home or self-care (01) ==
LOC: HO.ACS 08:44
PROVIDERS: PCP Internal Medicine; Visit Provider Internal Medicine
DX: Z79.01 Long term (current) use of anticoagulants (principal)

== ENCOUNTER → 2024-03-07 08:44 | Outpatient (BNVA) | payer MEDICARE, OTHER, SELFPAY | PROVIDERS: PCP Internal Medicine; Visit Provider Internal Medicine | DX: I48.20 Chronic atrial fibrillation, unspecified (principal); Z79.01 Long term (current) use of anticoagulants; Z51.81 Encounter for therapeutic drug level monitoring | CPT/HCPCS: 85610; 99211 ==

== ENCOUNTER 2024-03-21 08:48 | Outpatient (AMB) | payer MEDICARE, OTHER, SELFPAY ==
[2024-03-21 08:56] LABS: Prothrombin Time Whole Bld POC 24.2 sec (11.1-13.5)
--- NOTE | 2024-03-21 09:04 | MHC.OFFVISCO ---
Intake Intake Visit Reasons: Anticoagulation Allergies oxycodone [From OXYCONTIN] Allergy (Unknown, Verified 03/21/24 08:50) Confusion Medication List - Last Reconciled 03/21/24 by Narcisa Cadet RN albuterol sulfate 90 mcg/actuation 2 puffs PO Q4-6H PRN aspirin 81 mg PO DAILY Breo Ellipta 200-25 mcg/dose (fluticasone furoate-vilanterol) 1 ea inhalation DAILY NS furosemide (Lasix) 40 mg PO BID@0900,1700 lisinopril 2.5 mg PO DAILY metoprolol succinate ER 25 mg PO BID potassium chloride ER 20 mEq PO BID simvastatin 10 mg PO BEDTIME terazosin 10 mg PO BEDTIME trazodone 100 mg PO BEDTIME PRN warfarin 5 mg See Protocol PO DAILY@1700 Nursing Note INR: 2.0 in therapeutic range of 2-3 Medications and supplements reviewed No changes in health, diet, medications, or supplements, Denies any signs and symptoms of bleeding or bruising or clotting. Bleeding, bruising, clotting discussed Nutritional guidance given to avoid greens today andf to have a serving of foods that raise the INR. Pt states he has cranberry products at home and will have that Dose: 5mg X 6 days and 7.5mg X 1 day F/U INR: 3 weeks Patient verbalizes understanding of instructions given Anti-Coag Initial Assessment Social Hx Patient Tobacco Use Status: Former Tobacco user Tobacco use type: Cigar alcohol intake: never Coding Level of Care Code Est Patient Level 1 Diagnoses Current use of anticoagulant therapy Z79.01 Results AMB INR Fingerstick AMB INR Fingerstick 2.0 Last Edit by Narcisa Cadet RN on 03/21/24 08:56 interface delay Assessment & Plan Assessment & Plan (1) Current use of anticoagulant therapy: Code(s): 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
--- OUTSIDE RECORDS SUMMARY | 2024-03-22 19:06 | XMS_ITS ---
Author Organization [facility] Address [address] [place] [address] Care Team Providers Care Venereal Disease Control Head Name Role Phone REGINALDO RUIZ Primary Care Provider LORIN COLVIN Unavailable [phone] ALLERGIES Allergen (clinical drug ingredient) Drug/Non Drug Allergy documented on EMR Reaction Allergy Type Onset Date Status oxycodone Oxycodone HCl Unknown Drug Allergy Act marline REASON FOR VISIT Pt is here for MWV with Lab, no complains MEDICATIONS Medication SIG (Take, Route, Frequency, Duration) Notes Start Date End Date Status Coumadin 2.5 MG 1 tablet Orally 2-3 tablets depending on inr for 90 Active Simvastatin 10 MG TAKE 1 TABLET BY PHILIP TH EVERY DAY IN THE EVENING for 90 Active Breo Ellipta 200-25 MCG/ACT 1 puff Inhal ation Once a day Active Ipratropium [place] 0.03 % 2 sprays in e ach nostril Nasally Twice a day for 30 day(s) Active Warfarin Sodium 2.5 MG TAKE 2-3 TABLETS BY MOUTH DAILY DEPENDING ON INR for 90 Active traZODone HCl 100 MG 1 tablet at bedtime Orally Once a day Active Aspirin 81 81 MG 1 tablet Orally Once a day for 30 day(s) Active Potassium Chloride 20 MEQ 1 packet with food Orally Once a day for 30 day(s) Active Terazosin HCl 10 MG 1 capsule Orally Onc e a day for 30 day(s) Active Furosemide 40 MG 1 tablet Orally Twic e a day for 30 day(s) Active SOCIAL HISTORY Tobacco Use: Social History Observation Description Date Details (start date - stop date) Former Smoker NA - NA Sex Assigned At : Social History Observation Description Sex Assigned At Unknown Tobacco Use/Smoking Question Answer Notes Are you a former smoker Section Notes: quit 1967 VITAL SIGNS Heart Rate 61 /min 09/09/2023 Blood pressure systolic 120 mm Hg 09/09/19 24 Blood pressure diastolic 70 mm Hg 024 Weight 258 lbs 09/09/2023 BMI 40.4 kg/m2 09/09/2023 Height 67 in 09/09/2023 Oximetry 95 % 09/09/2023 Encounters Encounter Location Date Provider Diagnosis [facility] [id number] [place] [address] 09/09/2023 LORIN COLVIN Annual physical exam Z00.00 ; Encounter for screening for other disorder Z13.89 ; Encounter for screening for depression Z13.31 ; Chronic systolic heart failure I50.22 ; Asthma, unspecified asthma severity, unspecified whether complicated, unspecified whether persistent J45.909 ; Depression, unspecified depression type F32.9 ; Unspecified atrial fibrillation I48.91 ; Morbid obesity E66.01 ; Cardiomyopathy, unspecified type I42.9 and Chronic anticoagulation Z79.01 ASSESSMENTS Encounter Date Diagnosis Assessment Notes Treatment Notes Treatment Clinical Notes Section Notes 09/09/2023 Annual physical exam (ICD-10 - Z00.00) Acute Concerns/Problem List: 09/09/2023 Pt presents for MAWV Status post permanent pacemaker placement, left anterior chest Chronic conditions otherwise stable Can discontinue Breo 3-month follow-up *DNR Reviewed with patient the importance of medication and treatment plan compliance with BP goal of less then 140/90 per JNC 8 guidelines based on patient's age. This will ensure optimal health outcomes and prevent target organ damage. Made aware that uncontrolled hypertension may be silent and result in a stroke, heart attack, renal failure or even . Discussed the rationale for individualized medication regimen and the effects of their BP. Instructed to seek emergent care if the patient develops a headache, blurry vision, dizziness, chest pain or pressure. Patient seen for MEDICARE WELLNESS VISIT and examined. Comprehensive discussion was done on the following. 1. Nutrition: It is important to follow a healthy diet based on lots of vegetables and legumes and good fat. Avoid processed food and processed carbohydrates. Learn to prepare your own meals. Learn to read labels and avoid high fructose corn syrup, processed chemicals added to increase shelf life and preprepared meals. Avoid fast foods. Learn to eat slowly and plan meals for a week. Try to count calories and be mindful off daily calorie intake. Get into the habit of keeping an eye on your weight by using an appropriate scale. Learn to log exercise and discussed fitness Apps like LevelUp which can help keep log off calories taken versus calories burned. Local food should be preferred. Discussed Dirty Dozen Versus Clean Fifteen. Discussed healthy supplements like fish oil, Tumeric, Curcumin, Melatonin, Resveratrol, Probiotics, Vitamin-D, Alpha-Lipoic acid, Vitamin-D and coconut oil. 2. It is important to exercise regularly. Is a good habit to walk at least 30-45 minutes a day. Gentle weightlifting with standard precautions to protect the back. Finding activity like cycling or hiking and get into the habit of engaging in it. Stretching before and after the exercises important. It is also important to contact me if there are any problems like shortness of breath, chest pain, back pain and joint or muscle pain associated with the exercise. 3. Discussed age appropriate gender specific screening guidelines. Colonoscopy needs to start at age 45 with stool for occult blood as appropriate. There is a new test that can test for genetic abnormalities in the stool sample. This would not replace a colonoscopy but could be used as a screening tool for patients who do not want a colonoscopy. We discussed the importance of early detection of colon cancer. 4. Discussed current gender specific guidelines with respect to breast examination, mammogram and pap smear for early detection of breast and cervical cancer. Patient advised to follow up with these appointments. 5. Discussed safe driving and no use of smart phone while driving 6. Age-appropriate immunizations were discussed. A tetanus booster is needed every 10 years. Flu vaccine is recommended every year just before the start of the flu season. Shingles vaccine is recommended after age 50 but not all insurances cover it. Pneumonia vaccine is given after age 65 unless there are certain comorbidities for which it is started earlier. Newly approved RSV vaccine was also discussed COVID booster discussed 7. Diagnostic labs were discussed. These could include CBC CMP and lipids with fasting blood glucose and insulin levels. Vitamin D and hemoglobin A1c testing might be appropriate. 8. Patient and I had a detailed discussion on healthcare proxy and will follow. . I gave form for that as well as [place] order for life sustaining treatment. I screen for depression and she seems to be okay. I counseled on elimination of refined carbohydrates and processed food 9. Patient will be tested for dementia by neuropsychologica l testing if warranted and deemed appropriate by provider Of note, some information is being carried forward from prior records for informational purposes only and is being cited so that efficiency, safety and quality of the patient's care is not compromised This note was prepared using voice recognition software and direct typing Please excuse inadvertent procurement accountant or typing errors, or uncorrected word substitutions Although every attempt has been made by the provider to proofread this document, occasional misspellings and typographical errors may still be present Due to the previous pandemic, and the use of personal protective equipment (PPE) This may decrease voice recognition accuracy Inadvertent procurement accountant errors may occur 09/09/2023 Encounter for screening for other disorder (ICD-10 - Z13.89) Acute Concerns/Problem List: 09/09/2023 Pt presents for MAWV Status post permanent pacemaker placement, left anterior chest Chronic conditions otherwise stable Can discontinue Breo 3-month follow-up *DNR Reviewed with patient the importance of medication and treatment plan compliance with BP goal of less then 140/90 per JNC 8 guidelines based on patient's age. This will ensure optimal health outcomes and prevent target organ damage. Made aware that uncontrolled hypertension may be silent and result in a stroke, heart attack, renal failure or even . Discussed the rationale for individualized medication regimen and the effects of their BP. Instructed to seek emergent care if the patient develops a headache, blurry vision, dizziness, chest pain or pressure. Patient seen for MEDICARE WELLNESS VISIT and examined. Comprehensive discussion was done on the following. 1. Nutrition: It is important to follow a healthy diet based on lots of vegetables and legumes and good fat. Avoid processed food and processed carbohydrates. Learn to prepare your own meals. Learn to read labels and avoid high fructose corn syrup, processed chemicals added to increase shelf life and preprepared meals. Avoid fast foods. Learn to eat slowly and plan meals for a week. Try to count calories and be mindful off daily calorie intake. Get into the habit of keeping an eye on your weight by using an appropriate scale. Learn to log exercise and discussed fitness Apps like [employer] which can help keep log off calories taken versus calories burned. Local food should be preferred. Discussed Dirty Dozen Versus Clean Fifteen. Discussed healthy supplements like fish oil, Tumeric, Curcumin, Melatonin, Resveratrol, Probiotics, Vitamin-D, Alpha-Lipoic acid, Vitamin-D and coconut oil. 2. It is important to exercise regularly. Is a good habit to walk at least 30-45 minutes a day. Gentle weightlifting with standard precautions to protect the back. Finding activity like cycling or hiking and get into the habit of engaging in it. Stretching before and after the exercises important. It is also important to contact me if there are any problems like shortness of breath, chest pain, back pain and joint or muscle pain associated with the exercise. 3. Discussed age appropriate gender specific screening guidelines. Colonoscopy needs to start at age 45 with stool for occult blood as appropriate. There is a new test that can test for genetic abnormalities in the stool sample. This would not replace a colonoscopy but could be used as a screening tool for patients who do not want a colonoscopy. We discussed the importance of early detection of colon cancer. 4. Discussed current gender specific guidelines with respect to breast examination, mammogram and pap smear for early detection of breast and cervical cancer. Patient advised to follow up with these appointments. 5. Discussed safe driving and no use of smart phone while driving 6. Age-appropriate immunizations were discussed. A tetanus booster is needed every 10 years. Flu vaccine is recommended every year just before the start of the flu season. Shingles vaccine is recommended after age 50 but not all insurances cover it. Pneumonia vaccine is given after age 65 unless there are certain comorbidities for which it is started earlier. Newly approved RSV vaccine was also discussed COVID booster discussed 7. Diagnostic labs were discussed. These could include CBC CMP and lipids with fasting blood glucose and insulin levels. Vitamin D and hemoglobin A1c testing might be appropriate. 8. Patient and I had a detailed discussion on healthcare proxy and will follow. . I gave form for that as well as [place] order for life sustaining treatment. I screen for depression and she seems to be okay. I counseled on elimination of refined carbohydrates and processed food 9. Patient will be tested for dementia by neuropsychologica l testing if warranted and deemed appropriate by provider Of note, some information is being carried forward from prior records for informational purposes only and is being cited so that efficiency, safety and quality of the patient's care is not compromised This note was prepared using voice recognition software and direct typing Please excuse inadvertent procurement accountant or typing errors, or uncorrected word substitutions Although every attempt has been made by the provider to proofread this document, occasional misspellings and typographical errors may still be present Due to the previous pandemic, and the use of personal protective equipment (PPE) This may decrease voice recognition accuracy Inadvertent procurement accountant errors may occur 09/09/2023 Encounter for screening for depression (ICD-10 - Z13.31) Acute Concerns/Problem List: 09/09/2023 Pt presents for MAWV Status post permanent pacemaker placement, left anterior chest Chronic conditions otherwise stable Can discontinue Breo 3-month follow-up *DNR Reviewed with patient the importance of medication and treatment plan compliance with BP goal of less then 140/90 per JNC 8 guidelines based on patient's age. This will ensure optimal health outcomes and prevent target organ damage. Made aware that uncontrolled hypertension may be silent and result in a stroke, heart attack, renal failure or even . Discussed the rationale for individualized medication regimen and the effects of their BP. Instructed to seek emergent care if the patient develops a headache, blurry vision, dizziness, chest pain or pressure. Patient seen for MEDICARE WELLNESS VISIT and examined. Comprehensive discussion was done on the following. 1. Nutrition: It is important to follow a healthy diet based on lots of vegetables and legumes and good fat. Avoid processed food and processed carbohydrates. Learn to prepare your own meals. Learn to read labels and avoid high fructose corn syrup, processed chemicals added to increase shelf life and preprepared meals. Avoid fast foods. Learn to eat slowly and plan meals for a week. Try to count calories and be mindful off daily calorie intake. Get into the habit of keeping an eye on your weight by using an appropriate scale. Learn to log exercise and discussed fitness Apps like LevelUp which can help keep log off calories taken versus calories burned. Local food should be preferred. Discussed Dirty Dozen Versus Clean Fifteen. Discussed healthy supplements like fish oil, Tumeric, Curcumin, Melatonin, Resveratrol, Probiotics, Vitamin-D, Alpha-Lipoic acid, Vitamin-D and coconut oil. 2. It is important to exercise regularly. Is a good habit to walk at least 30-45 minutes a day. Gentle weightlifting with standard precautions to protect the back. Finding activity like cycling or hiking and get into the habit of engaging in it. Stretching before and after the exercises important. It is also important to contact me if there are any problems like shortness of breath, chest pain, back pain and joint or muscle pain associated with the exercise. 3. Discussed age appropriate gender specific screening guidelines. Colonoscopy needs to start at age 45 with stool for occult blood as appropriate. There is a new test that can test for genetic abnormalities in the stool sample. This would not replace a colonoscopy but could be used as a screening tool for patients who do not want a colonoscopy. We discussed the importance of early detection of colon cancer. 4. Discussed current gender specific guidelines with respect to breast examination, mammogram and pap smear for early detection of breast and cervical cancer. Patient advised to follow up with these appointments. 5. Discussed safe driving and no use of smart phone while driving 6. Age-appropriate immunizations were discussed. A tetanus booster is needed every 10 years. Flu vaccine is recommended every year just before the start of the flu season. Shingles vaccine is recommended after age 50 but not all insurances cover it. Pneumonia vaccine is given after age 65 unless there are certain comorbidities for which it is started earlier. Newly approved RSV vaccine was also discussed COVID booster discussed 7. Diagnostic labs were discussed. These could include CBC CMP and lipids with fasting blood glucose and insulin levels. Vitamin D and hemoglobin A1c testing might be appropriate. 8. Patient and I had a detailed discussion on healthcare proxy and will follow. . I gave form for that as well as [place] order for life sustaining treatment. I screen for depression and she seems to be okay. I counseled on elimination of refined carbohydrates and processed food 9. Patient will be tested for dementia by neuropsychologica l testing if warranted and deemed appropriate by provider Of note, some information is being carried forward from prior records for informational purposes only and is being cited so that efficiency, safety and quality of the patient's care is not compromised This note was prepared using voice recognition software and direct typing Please excuse inadvertent procurement accountant or typing errors, or uncorrected word substitutions Although every attempt has been made by the provider to proofread this document, occasional misspellings and typographical errors may still be present Due to the previous pandemic, and the use of personal protective equipment (PPE) This may decrease voice recognition accuracy Inadvertent procurement accountant errors may occur 09/09/2023 Chronic systolic heart failure (ICD-10 - I50.22) Acute Concerns/Problem List: 09/09/2023 Pt presents for MAWV Status post permanent pacemaker placement, left anterior chest Chronic conditions otherwise stable Can discontinue Breo 3-month follow-up *DNR Reviewed with patient the importance of medication and treatment plan compliance with BP goal of less then 140/90 per JNC 8 guidelines based on patient's age. This will ensure optimal health outcomes and prevent target organ damage. Made aware that uncontrolled hypertension may be silent and result in a stroke, heart attack, renal failure or even . Discussed the rationale for individualized medication regimen and the effects of their BP. Instructed to seek emergent care if the patient develops a headache, blurry vision, dizziness, chest pain or pressure. Patient seen for MEDICARE WELLNESS VISIT and examined. Comprehensive discussion was done on the following. 1. Nutrition: It is important to follow a healthy diet based on lots of vegetables and legumes and good fat. Avoid processed food and processed carbohydrates. Learn to prepare your own meals. Learn to read labels and avoid high fructose corn syrup, processed chemicals added to increase shelf life and preprepared meals. Avoid fast foods. Learn to eat slowly and plan meals for a week. Try to count calories and be mindful off daily calorie intake. Get into the habit of keeping an eye on your weight by using an appropriate scale. Learn to log exercise and discussed fitness Apps like LevelUp which can help keep log off calories taken versus calories burned. Local food should be preferred. Discussed Dirty Dozen Versus Clean Fifteen. Discussed healthy supplements like fish oil, Tumeric, Curcumin, Melatonin, Resveratrol, Probiotics, Vitamin-D, Alpha-Lipoic acid, Vitamin-D and coconut oil. 2. It is important to exercise regularly. Is a good habit to walk at least 30-45 minutes a day. Gentle weightlifting with standard precautions to protect the back. Finding activity like cycling or hiking and get into the habit of engaging in it. Stretching before and after the exercises important. It is also important to contact me if there are any problems like shortness of breath, chest pain, back pain and joint or muscle pain associated with the exercise. 3. Discussed age appropriate gender specific screening guidelines. Colonoscopy needs to start at age 45 with stool for occult blood as appropriate. There is a new test that can test for genetic abnormalities in the stool sample. This would not replace a colonoscopy but could be used as a screening tool for patients who do not want a colonoscopy. We discussed the importance of early detection of colon cancer. 4. Discussed current gender specific guidelines with respect to breast examination, mammogram and pap smear for early detection of breast and cervical cancer. Patient advised to follow up with these appointments. 5. Discussed safe driving and no use of smart phone while driving 6. Age-appropriate immunizations were discussed. A tetanus booster is needed every 10 years. Flu vaccine is recommended every year just before the start of the flu season. Shingles vaccine is recommended after age 50 but not all insurances cover it. Pneumonia vaccine is given after age 65 unless there are certain comorbidities for which it is started earlier. Newly approved RSV vaccine was also discussed COVID booster discussed 7. Diagnostic labs were discussed. These could include CBC CMP and lipids with fasting blood glucose and insulin levels. Vitamin D and hemoglobin A1c testing might be appropriate. 8. Patient and I had a detailed discussion on healthcare proxy and will follow. . I gave form for that as well as [place] order for life sustaining treatment. I screen for depression and she seems to be okay. I counseled on elimination of refined carbohydrates and processed food 9. Patient will be tested for dementia by neuropsychologica l testing if warranted and deemed appropriate by provider Of note, some information is being carried forward from prior records for informational purposes only and is being cited so that efficiency, safety and quality of the patient's care is not compromised This note was prepared using voice recognition software and direct typing Please excuse inadvertent procurement accountant or typing errors, or uncorrected word substitutions Although every attempt has been made by the provider to proofread this document, occasional misspellings and typographical errors may still be present Due to the previous pandemic, and the use of personal protective equipment (PPE) This may decrease voice recognition accuracy Inadvertent procurement accountant errors may occur 09/09/2023 Asthma, unspecified asthma severity, unspecified whether complicated, unspecified whether persistent (ICD-10 - J45.909) Acute Concerns/Problem List: 09/09/2023 Pt presents for MAWV Status post permanent pacemaker placement, left anterior chest Chronic conditions otherwise stable Can discontinue Breo 3-month follow-up *DNR Reviewed with patient the importance of medication and treatment plan compliance with BP goal of less then 140/90 per JNC 8 guidelines based on patient's age. This will ensure optimal health outcomes and prevent target organ damage. Made aware that uncontrolled hypertension may be silent and result in a stroke, heart attack, renal failure or even . Discussed the rationale for individualized medication regimen and the effects of their BP. Instructed to seek emergent care if the patient develops a headache, blurry vision, dizziness, chest pain or pressure. Patient seen for MEDICARE WELLNESS VISIT and examined. Comprehensive discussion was done on the following. 1. Nutrition: It is important to follow a healthy diet based on lots of vegetables and legumes and good fat. Avoid processed food and processed carbohydrates. Learn to prepare your own meals. Learn to read labels and avoid high fructose corn syrup, processed chemicals added to increase shelf life and preprepared meals. Avoid fast foods. Learn to eat slowly and plan meals for a week. Try to count calories and be mindful off daily calorie intake. Get into the habit of keeping an eye on your weight by using an appropriate scale. Learn to log exercise and discussed fitness Apps like LevelUp which can help keep log off calories taken versus calories burned. Local food should be preferred. Discussed Dirty Dozen Versus Clean Fifteen. Discussed healthy supplements like fish oil, Tumeric, Curcumin, Melatonin, Resveratrol, Probiotics, Vitamin-D, Alpha-Lipoic acid, Vitamin-D and coconut oil. 2. It is important to exercise regularly. Is a good habit to walk at least 30-45 minutes a day. Gentle weightlifting with standard precautions to protect the back. Finding activity like cycling or hiking and get into the habit of engaging in it. Stretching before and after the exercises important. It is also important to contact me if there are any problems like shortness of breath, chest pain, back pain and joint or muscle pain associated with the exercise. 3. Discussed age appropriate gender specific screening guidelines. Colonoscopy needs to start at age 45 with stool for occult blood as appropriate. There is a new test that can test for genetic abnormalities in the stool sample. This would not replace a colonoscopy but could be used as a screening tool for patients who do not want a colonoscopy. We discussed the importance of early detection of colon cancer. 4. Discussed current gender specific guidelines with respect to breast examination, mammogram and pap smear for early detection of breast and cervical cancer. Patient advised to follow up with these appointments. 5. Discussed safe driving and no use of smart phone while driving 6. Age-appropriate immunizations were discussed. A tetanus booster is needed every 10 years. Flu vaccine is recommended every year just before the start of the flu season. Shingles vaccine is recommended after age 50 but not all insurances cover it. Pneumonia vaccine is given after age 65 unless there are certain comorbidities for which it is started earlier. Newly approved RSV vaccine was also discussed COVID booster discussed 7. Diagnostic labs were discussed. These could include CBC CMP and lipids with fasting blood glucose and insulin levels. Vitamin D and hemoglobin A1c testing might be appropriate. 8. Patient and I had a detailed discussion on healthcare proxy and will follow. . I gave form for that as well as [place] order for life sustaining treatment. I screen for depression and she seems to be okay. I counseled on elimination of refined carbohydrates and processed food 9. Patient will be tested for dementia by neuropsychologica l testing if warranted and deemed appropriate by provider Of note, some information is being carried forward from prior records for informational purposes only and is being cited so that efficiency, safety and quality of the patient's care is not compromised This note was prepared using voice recognition software and direct typing Please excuse inadvertent procurement accountant or typing errors, or uncorrected word substitutions Although every attempt has been made by the provider to proofread this document, occasional misspellings and typographical errors may still be present Due to the previous pandemic, and the use of personal protective equipment (PPE) This may decrease voice recognition accuracy Inadvertent procurement accountant errors may occur 09/09/2023 Depression, unspecified depression type (ICD-10 - F32.9) Acute Concerns/Problem List: 09/09/2023 Pt presents for [facility] Status post permanent pacemaker placement, left anterior chest Chronic conditions otherwise stable Can discontinue Breo 3-month follow-up *DNR Reviewed with patient the importance of medication and treatment plan compliance with BP goal of less then 140/90 per JNC 8 guidelines based on patient's age. This will ensure optimal health outcomes and prevent target organ damage. Made aware that uncontrolled hypertension may be silent and result in a stroke, heart attack, renal failure or even . Discussed the rationale for individualized medication regimen and the effects of their BP. Instructed to seek emergent care if the patient develops a headache, blurry vision, dizziness, chest pain or pressure. Patient seen for MEDICARE WELLNESS VISIT and examined. Comprehensive discussion was done on the following. 1. Nutrition: It is important to follow a healthy diet based on lots of vegetables and legumes and good fat. Avoid processed food and processed carbohydrates. Learn to prepare your own meals. Learn to read labels and avoid high fructose corn syrup, processed chemicals added to increase shelf life and preprepared meals. Avoid fast foods. Learn to eat slowly and plan meals for a week. Try to count calories and be mindful off daily calorie intake. Get into the habit of keeping an eye on your weight by using an appropriate scale. Learn to log exercise and discussed fitness Apps like LevelUp which can help keep log off calories taken versus calories burned. Local food should be preferred. Discussed Dirty Dozen Versus Clean Fifteen. Discussed healthy supplements like fish oil, Tumeric, Curcumin, Melatonin, Resveratrol, Probiotics, Vitamin-D, Alpha-Lipoic acid, Vitamin-D and coconut oil. 2. It is important to exercise regularly. Is a good habit to walk at least 30-45 minutes a day. Gentle weightlifting with standard precautions to protect the back. Finding activity like cycling or hiking and get into the habit of engaging in it. Stretching before and after the exercises important. It is also important to contact me if there are any problems like shortness of breath, chest pain, back pain and joint or muscle pain associated with the exercise. 3. Discussed age appropriate gender specific screening guidelines. Colonoscopy needs to start at age 45 with stool for occult blood as appropriate. There is a new test that can test for genetic abnormalities in the stool sample. This would not replace a colonoscopy but could be used as a screening tool for patients who do not want a colonoscopy. We discussed the importance of early detection of colon cancer. 4. Discussed current gender specific guidelines with respect to breast examination, mammogram and pap smear for early detection of breast and cervical cancer. Patient advised to follow up with these appointments. 5. Discussed safe driving and no use of smart phone while driving 6. Age-appropriate immunizations were discussed. A tetanus booster is needed every 10 years. Flu vaccine is recommended every year just before the start of the flu season. Shingles vaccine is recommended after age 50 but not all insurances cover it. Pneumonia vaccine is given after age 65 unless there are certain comorbidities for which it is started earlier. Newly approved RSV vaccine was also discussed COVID booster discussed 7. Diagnostic labs were discussed. These could include CBC CMP and lipids with fasting blood glucose and insulin levels. Vitamin D and hemoglobin A1c testing might be appropriate. 8. Patient and I had a detailed discussion on healthcare proxy and will follow. . I gave form for that as well as [place] order for life sustaining treatment. I screen for depression and she seems to be okay. I counseled on elimination of refined carbohydrates and processed food 9. Patient will be tested for dementia by neuropsychologica l testing if warranted and deemed appropriate by provider Of note, some information is being carried forward from prior records for informational purposes only and is being cited so that efficiency, safety and quality of the patient's care is not compromised This note was prepared using voice recognition software and direct typing Please excuse inadvertent procurement accountant or typing errors, or uncorrected word substitutions Although every attempt has been made by the provider to proofread this document, occasional misspellings and typographical errors may still be present Due to the previous pandemic, and the use of personal protective equipment (PPE) This may decrease voice recognition accuracy Inadvertent procurement accountant errors may occur 09/09/2023 Unspecified atrial fibrillation (ICD-10 - I48.91) Acute Concerns/Problem List: 09/09/2023 Pt presents for [facility] Status post permanent pacemaker placement, left anterior chest Chronic conditions otherwise stable Can discontinue Breo 3-month follow-up *DNR Reviewed with patient the importance of medication and treatment plan compliance with BP goal of less then 140/90 per JNC 8 guidelines based on patient's age. This will ensure optimal health outcomes and prevent target organ damage. Made aware that uncontrolled hypertension may be silent and result in a stroke, heart attack, renal failure or even . Discussed the rationale for individualized medication regimen and the effects of their BP. Instructed to seek emergent care if the patient develops a headache, blurry vision, dizziness, chest pain or pressure. Patient seen for MEDICARE WELLNESS VISIT and examined. Comprehensive discussion was done on the following. 1. Nutrition: It is important to follow a healthy diet based on lots of vegetables and legumes and good fat. Avoid processed food and processed carbohydrates. Learn to prepare your own meals. Learn to read labels and avoid high fructose corn syrup, processed chemicals added to increase shelf life and preprepared meals. Avoid fast foods. Learn to eat slowly and plan meals for a week. Try to count calories and be mindful off daily calorie intake. Get into the habit of keeping an eye on your weight by using an appropriate scale. Learn to log exercise and discussed fitness Apps like LevelUp which can help keep log off calories taken versus calories burned. Local food should be preferred. Discussed Dirty Dozen Versus Clean Fifteen. Discussed healthy supplements like fish oil, Tumeric, Curcumin, Melatonin, Resveratrol, Probiotics, Vitamin-D, Alpha-Lipoic acid, Vitamin-D and coconut oil. 2. It is important to exercise regularly. Is a good habit to walk at least 30-45 minutes a day. Gentle weightlifting with standard precautions to protect the back. Finding activity like cycling or hiking and get into the habit of engaging in it. Stretching before and after the exercises important. It is also important to contact me if there are any problems like shortness of breath, chest pain, back pain and joint or muscle pain associated with the exercise. 3. Discussed age appropriate gender specific screening guidelines. Colonoscopy needs to start at age 45 with stool for occult blood as appropriate. There is a new test that can test for genetic abnormalities in the stool sample. This would not replace a colonoscopy but could be used as a screening tool for patients who do not want a colonoscopy. We discussed the importance of early detection of colon cancer. 4. Discussed current gender specific guidelines with respect to breast examination, mammogram and pap smear for early detection of breast and cervical cancer. Patient advised to follow up with these appointments. 5. Discussed safe driving and no use of smart phone while driving 6. Age-appropriate immunizations were discussed. A tetanus booster is needed every 10 years. Flu vaccine is recommended every year just before the start of the flu season. Shingles vaccine is recommended after age 50 but not all insurances cover it. Pneumonia vaccine is given after age 65 unless there are certain comorbidities for which it is started earlier. Newly approved RSV vaccine was also discussed COVID booster discussed 7. Diagnostic labs were discussed. These could include CBC CMP and lipids with fasting blood glucose and insulin levels. Vitamin D and hemoglobin A1c testing might be appropriate. 8. Patient and I had a detailed discussion on healthcare proxy and will follow. . I gave form for that as well as [place] order for life sustaining treatment. I screen for depression and she seems to be okay. I counseled on elimination of refined carbohydrates and processed food 9. Patient will be tested for dementia by neuropsychologica l testing if warranted and deemed appropriate by provider Of note, some information is being carried forward from prior records for informational purposes only and is being cited so that efficiency, safety and quality of the patient's care is not compromised This note was prepared using voice recognition software and direct typing Please excuse inadvertent procurement accountant or typing errors, or uncorrected word substitutions Although every attempt has been made by the provider to proofread this document, occasional misspellings and typographical errors may still be present Due to the previous pandemic, and the use of personal protective equipment (PPE) This may decrease voice recognition accuracy Inadvertent procurement accountant errors may occur 09/09/2023 Morbid obesity (ICD-10 - E66.01) Acute Concerns/Problem List: 09/09/2023 Pt presents for [facility] Status post permanent pacemaker placement, left anterior chest Chronic conditions otherwise stable Can discontinue Breo 3-month follow-up *DNR Reviewed with patient the importance of medication and treatment plan compliance with BP goal of less then 140/90 per JNC 8 guidelines based on patient's age. This will ensure optimal health outcomes and prevent target organ damage. Made aware that uncontrolled hypertension may be silent and result in a stroke, heart attack, renal failure or even . Discussed the rationale for individualized medication regimen and the effects of their BP. Instructed to seek emergent care if the patient develops a headache, blurry vision, dizziness, chest pain or pressure. Patient seen for MEDICARE WELLNESS VISIT and examined. Comprehensive discussion was done on the following. 1. Nutrition: It is important to follow a healthy diet based on lots of vegetables and legumes and good fat. Avoid processed food and processed carbohydrates. Learn to prepare your own meals. Learn to read labels and avoid high fructose corn syrup, processed chemicals added to increase shelf life and preprepared meals. Avoid fast foods. Learn to eat slowly and plan meals for a week. Try to count calories and be mindful off daily calorie intake. Get into the habit of keeping an eye on your weight by using an appropriate scale. Learn to log exercise and discussed fitness Apps like LevelUp which can help keep log off calories taken versus calories burned. Local food should be preferred. Discussed Dirty Dozen Versus Clean Fifteen. Discussed healthy supplements like fish oil, Tumeric, Curcumin, Melatonin, Resveratrol, Probiotics, Vitamin-D, Alpha-Lipoic acid, Vitamin-D and coconut oil. 2. It is important to exercise regularly. Is a good habit to walk at least 30-45 minutes a day. Gentle weightlifting with standard precautions to protect the back. Finding activity like cycling or hiking and get into the habit of engaging in it. Stretching before and after the exercises important. It is also important to contact me if there are any problems like shortness of breath, chest pain, back pain and joint or muscle pain associated with the exercise. 3. Discussed age appropriate gender specific screening guidelines. Colonoscopy needs to start at age 45 with stool for occult blood as appropriate. There is a new test that can test for genetic abnormalities in the stool sample. This would not replace a colonoscopy but could be used as a screening tool for patients who do not want a colonoscopy. We discussed the importance of early detection of colon cancer. 4. Discussed current gender specific guidelines with respect to breast examination, mammogram and pap smear for early detection of breast and cervical cancer. Patient advised to follow up with these appointments. 5. Discussed safe driving and no use of smart phone while driving 6. Age-appropriate immunizations were discussed. A tetanus booster is needed every 10 years. Flu vaccine is recommended every year just before the start of the flu season. Shingles vaccine is recommended after age 50 but not all insurances cover it. Pneumonia vaccine is given after age 65 unless there are certain comorbidities for which it is started earlier. Newly approved RSV vaccine was also discussed COVID booster discussed 7. Diagnostic labs were discussed. These could include CBC CMP and lipids with fasting blood glucose and insulin levels. Vitamin D and hemoglobin A1c testing might be appropriate. 8. Patient and I had a detailed discussion on healthcare proxy and will follow. . I gave form for that as well as [place] order for life sustaining treatment. I screen for depression and she seems to be okay. I counseled on elimination of refined carbohydrates and processed food 9. Patient will be tested for dementia by neuropsychologica l testing if warranted and deemed appropriate by provider Of note, some information is being carried forward from prior records for informational purposes only and is being cited so that efficiency, safety and quality of the patient's care is not compromised This note was prepared using voice recognition software and direct typing Please excuse inadvertent procurement accountant or typing errors, or uncorrected word substitutions Although every attempt has been made by the provider to proofread this document, occasional misspellings and typographical errors may still be present Due to the previous pandemic, and the use of personal protective equipment (PPE) This may decrease voice recognition accuracy Inadvertent procurement accountant errors may occur 09/09/2023 Cardiomyopathy, unspecified type (ICD-10 - I42.9) Acute Concerns/Problem List: 09/09/2023 Pt presents for [facility] Status post permanent pacemaker placement, left anterior chest Chronic conditions otherwise stable Can discontinue Breo 3-month follow-up *DNR Reviewed with patient the importance of medication and treatment plan compliance with BP goal of less then 140/90 per JNC 8 guidelines based on patient's age. This will ensure optimal health outcomes and prevent target organ damage. Made aware that uncontrolled hypertension may be silent and result in a stroke, heart attack, renal failure or even . Discussed the rationale for individualized medication regimen and the effects of their BP. Instructed to seek emergent care if the patient develops a headache, blurry vision, dizziness, chest pain or pressure. Patient seen for MEDICARE WELLNESS VISIT and examined. Comprehensive discussion was done on the following. 1. Nutrition: It is important to follow a healthy diet based on lots of vegetables and legumes and good fat. Avoid processed food and processed carbohydrates. Learn to prepare your own meals. Learn to read labels and avoid high fructose corn syrup, processed chemicals added to increase shelf life and preprepared meals. Avoid fast foods. Learn to eat slowly and plan meals for a week. Try to count calories and be mindful off daily calorie intake. Get into the habit of keeping an eye on your weight by using an appropriate scale. Learn to log exercise and discussed fitness Apps like LevelUp which can help keep log off calories taken versus calories burned. Local food should be preferred. Discussed Dirty Dozen Versus Clean Fifteen. Discussed healthy supplements like fish oil, Tumeric, Curcumin, Melatonin, Resveratrol, Probiotics, Vitamin-D, Alpha-Lipoic acid, Vitamin-D and coconut oil. 2. It is important to exercise regularly. Is a good habit to walk at least 30-45 minutes a day. Gentle weightlifting with standard precautions to protect the back. Finding activity like cycling or hiking and get into the habit of engaging in it. Stretching before and after the exercises important. It is also important to contact me if there are any problems like shortness of breath, chest pain, back pain and joint or muscle pain associated with the exercise. 3. Discussed age appropriate gender specific screening guidelines. Colonoscopy needs to start at age 45 with stool for occult blood as appropriate. There is a new test that can test for genetic abnormalities in the stool sample. This would not replace a colonoscopy but could be used as a screening tool for patients who do not want a colonoscopy. We discussed the importance of early detection of colon cancer. 4. Discussed current gender specific guidelines with respect to breast examination, mammogram and pap smear for early detection of breast and cervical cancer. Patient advised to follow up with these appointments. 5. Discussed safe driving and no use of smart phone while driving 6. Age-appropriate immunizations were discussed. A tetanus booster is needed every 10 years. Flu vaccine is recommended every year just before the start of the flu season. Shingles vaccine is recommended after age 50 but not all insurances cover it. Pneumonia vaccine is given after age 65 unless there are certain comorbidities for which it is started earlier. Newly approved RSV vaccine was also discussed COVID booster discussed 7. Diagnostic labs were discussed. These could include CBC CMP and lipids with fasting blood glucose and insulin levels. Vitamin D and hemoglobin A1c testing might be appropriate. 8. Patient and I had a detailed discussion on healthcare proxy and will follow. . I gave form for that as well as [place] order for life sustaining treatment. I screen for depression and she seems to be okay. I counseled on elimination of refined carbohydrates and processed food 9. Patient will be tested for dementia by neuropsychologica l testing if warranted and deemed appropriate by provider Of note, some information is being carried forward from prior records for informational purposes only and is being cited so that efficiency, safety and quality of the patient's care is not compromised This note was prepared using voice recognition software and direct typing Please excuse inadvertent procurement accountant or typing errors, or uncorrected word substitutions Although every attempt has been made by the provider to proofread this document, occasional misspellings and typographical errors may still be present Due to the previous pandemic, and the use of personal protective equipment (PPE) This may decrease voice recognition accuracy Inadvertent procurement accountant errors may occur 09/09/2023 Chronic anticoagulation (ICD-10 - Z79.01) Acute Concerns/Problem List: 09/09/2023 Pt presents for [facility] Status post permanent pacemaker placement, left anterior chest Chronic conditions otherwise stable Can discontinue Breo 3-month follow-up *DNR Reviewed with patient the importance of medication and treatment plan compliance with BP goal of less then 140/90 per JNC 8 guidelines based on patient's age. This will ensure optimal health outcomes and prevent target organ damage. Made aware that uncontrolled hypertension may be silent and result in a stroke, heart attack, renal failure or even . Discussed the rationale for individualized medication regimen and the effects of their BP. Instructed to seek emergent care if the patient develops a headache, blurry vision, dizziness, chest pain or pressure. Patient seen for MEDICARE WELLNESS VISIT and examined. Comprehensive discussion was done on the following. 1. Nutrition: It is important to follow a healthy diet based on lots of vegetables and legumes and good fat. Avoid processed food and processed carbohydrates. Learn to prepare your own meals. Learn to read labels and avoid high fructose corn syrup, processed chemicals added to increase shelf life and preprepared meals. Avoid fast foods. Learn to eat slowly and plan meals for a week. Try to count calories and be mindful off daily calorie intake. Get into the habit of keeping an eye on your weight by using an appropriate scale. Learn to log exercise and discussed fitness Apps like LevelUp which can help keep log off calories taken versus calories burned. Local food should be preferred. Discussed Dirty Dozen Versus Clean Fifteen. Discussed healthy supplements like fish oil, Tumeric, Curcumin, Melatonin, Resveratrol, Probiotics, Vitamin-D, Alpha-Lipoic acid, Vitamin-D and coconut oil. 2. It is important to exercise regularly. Is a good habit to walk at least 30-45 minutes a day. Gentle weightlifting with standard precautions to protect the back. Finding activity like cycling or hiking and get into the habit of engaging in it. Stretching before and after the exercises important. It is also important to contact me if there are any problems like shortness of breath, chest pain, back pain and joint or muscle pain associated with the exercise. 3. Discussed age appropriate gender specific screening guidelines. Colonoscopy needs to start at age 45 with stool for occult blood as appropriate. There is a new test that can test for genetic abnormalities in the stool sample. This would not replace a colonoscopy but could be used as a screening tool for patients who do not want a colonoscopy. We discussed the importance of early detection of colon cancer. 4. Discussed current gender specific guidelines with respect to breast examination, mammogram and pap smear for early detection of breast and cervical cancer. Patient advised to follow up with these appointments. 5. Discussed safe driving and no use of smart phone while driving 6. Age-appropriate immunizations were discussed. A tetanus booster is needed every 10 years. Flu vaccine is recommended every year just before the start of the flu season. Shingles vaccine is recommended after age 50 but not all insurances cover it. Pneumonia vaccine is given after age 65 unless there are certain comorbidities for which it is started earlier. Newly approved RSV vaccine was also discussed COVID booster discussed 7. Diagnostic labs were discussed. These could include CBC CMP and lipids with fasting blood glucose and insulin levels. Vitamin D and hemoglobin A1c testing might be appropriate. 8. Patient and I had a detailed discussion on healthcare proxy and will follow. . I gave form for that as well as [place] order for life sustaining treatment. I screen for depression and she seems to be okay. I counseled on elimination of refined carbohydrates and processed food 9. Patient will be tested for dementia by neuropsychologica l testing if warranted and deemed appropriate by provider Of note, some information is being carried forward from prior records for informational purposes only and is being cited so that efficiency, safety and quality of the patient's care is not compromised This note was prepared using voice recognition software and direct typing Please excuse inadvertent procurement accountant or typing errors, or uncorrected word substitutions Although every attempt has been made by the provider to proofread this document, occasional misspellings and typographical errors may still be present Due to the previous pandemic, and the use of personal protective equipment (PPE) This may decrease voice recognition accuracy Inadvertent procurement accountant errors may occur PLAN OF TREATMENT Next Appt Details Provider Name:LORIN COLVIN, 05/11/2024 09:15:00 AM, [address] [facility], [facility] [address], [place], [address], Progress Notes * KAMAR LEE CDOB:1934 (88 yo M)Acc No.[id number]:09/09/2023 Progress Note Patient:??KAMAR LEE Provider:??LORIN COLVIN NP :1935?Age:88 Y?Sex:Ma le Date:09/09/2023 Address:[facility] [address] [place], [id number] Pcp:REGINALDO RUIZ Subjective: * Chief Complaints: * ?1. Pt is here for MWV with Lab, no complains. * HPI: ?Constitutional:? Patient is here for a Medicare wellness visit. ?Complete paperwork was reviewed and updated and has been filed and scan. ?Age appropriate screening measures reviewed ?Depression screen completed. ?Alcohol audit screening completed. ?Obesity screen completed. ? Cardiovascular risk stratification screen completed. ?Cognition assessed ?Fall risk assessed ?Discussed healthcare proxy. ?Discussed [place] order for life sustaining treatment, ?Comprehensive fasting labs reviewed ?Patient seen and examined. ? Full past medical history, social history, family history, ?allergies and current medications were reviewed and updated. ?Acute Concerns/Problem List: ?09/09/2023 ?Past medical history significant for chronic atrial fibrillation, ?was rate controlled with metoprolol ?Chronic anticoagulation with warfarin ?Chronic diastolic heart failure, mitral valve replacement, tricuspid ring angioplasty, ? 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 ?Lisinopril 2.5mg also started 05/2023. ?Recent echocardiogram at the end of March worsening EF, continues declining ?to be started on entresto,Patient hesitant about this ? I do not want to be the 89-year-old in the halfway with a 40-year-old heart ?followed by [facility]RI[facility] Aranda, retiring this year ?Pt has been on coumadin/warfarin since 2005 ?INR managed by [facility] ?Follows neurologist r/t ?Parkinsons- Dr. Ellington in [place], last appointment 1-2 weeks ago. ?Still reporting vivid dreams and tremors, on Trazodone 100mg at bedtime. ?SOB- seen [facility] for PFTs and ? s/p hospitalization in June and states he passed all the tests. ?Wondering if he can discontinue Breo ?History of prostate cancer, s/p radiation tx 2017 ?Reports his urinary symptoms had been better on oxybutynin and terazosin, ?follows with urologist regularly. ?He reports compliance with medications ?MOLST, HCP IN PLACE ?*DNR ?Hospitalization hx- ?June 2022- PNA, [facility] 4 days ?IV Abx, d/c home. Recommended to see Dr. Russell. ?Comprehensive labs, 08/2023 ?Electrolytes renal function LFTs are stable ?CBC is stable ?Total cholesterol 139, LDL 76, HDL 45, triglycerides 91 ?TSH 4.16 ?UA unremarkable ?Vitamin D 27 ?normal T4 ?Health Maintenance. ?Patient has been vaccinated for COVID-19. x 3 MRN vax ?flu 2022: 12/2022 ?rsv: discussed vax, to get at pharm ?cscope- 2017 ?DXA- defers ?shingles- 11/2017 ?PNA- states got a couple, cannot recall ?tetanus- 2020 ?Exercise: 5 days a week s resitance stationary cycling 30 minutes a day. * ROS:?Review of systems otherwise negative unless stated in HPI. * Medical History:??Hypertensi on, Hypercholesterolemia, Constipation, Asthma, BPH, Chronic pain, A fib, Transient ischemic attack. * Surgical History:??2009 wojc ik , open heart 04/14/2017, heart valve replacement , Pacemaker dr. Tan @ [facility] . * Hospitalization/Major Diagno stic Procedure:??Denies Past Hospitalization. * Family History:??1 brother(s ) , 2 sister(s) . 2 son(s) . .?? * Social History:?Tobacco Use:??Tobacco Use/Smoking??Are you a??former smoker.?quit 1968. * Medications:??Taking Breo [place] lipta 200-25 MCG/ACT Aerosol Powder Breath Activated 1 puff Inhalation Once a day , Taking Ipratropium [place] 0.03 % Solution 2 sprays in each nostril Nasally Twice a day , Taking traZODone HCl 100 MG Tablet 1 tablet at bedtime Orally Once a day , Taking Aspirin 81 81 MG Tablet Chewable 1 tablet Orally Once a day , Taking Potassium Chloride 20 MEQ Packet 1 packet with food Orally Once a day , Taking Terazosin HCl 10 MG Capsule 1 capsule Orally Once a day , Taking Furosemide 40 MG Tablet 1 tablet Orally Twice a day , Taking Coumadin 2.5 MG Tablet 1 tablet Orally 2-3 tablets depending on inr , Taking Simvastatin 10 MG Tablet TAKE 1 TABLET BY MOUTH EVERY DAY IN THE EVENING , Taking Warfarin Sodium 2.5 MG Tablet TAKE 2-3 TABLETS BY MOUTH DAILY DEPENDING ON INR , Medication List reviewed and reconciled with the patient * Allergies:??Oxycodone HCl. Objective: * Vitals:??HR: 61 /min, BP: 12 0/70 mm Hg, Wt: 258 lbs, BMI: 40.4 Index, Ht: 67 in, Oxygen sat %: 95 %. * Examination: ?General Examination: ?GENERAL APPEARANCE:??in no acute distress, well developed, well nourished ?morbid obesity.??HEAD:??normocephalic, atraumatic.??EYES:??pupils equal, round, reactive to light and accommodation.??EARS:??normal.??ORAL CAVITY:??mucosa dry, pt says he held off hydrating this morning for the clinic visit, says he usually tries to stay well hydrated.??THROAT:??clear.??NECK/THYROID:??neck supple, full range of motion, no cervical lymphadenopathy.??SKIN:??no suspicious lesions, warm and dry.??HEART:??no murmurs, regular rate and rhythm, S1, S2 normal.??LUNGS:??clear to auscultation bilaterally.??ABDOMEN:??normal, bowel sounds present, soft, nontender, nondistended.??MUSCULOSKELETAL:??+ left 3rd digit missing + old TKR scars on knees bilaterally + uses cane to ambulate at baseline + Katelynn test to L hand.??EXTREMITIES:??no clubbing, cyanosis, or edema.??NEUROLOGIC:??nonfocal, motor strength normal upper and lower extremities, sensory exam intact.? Assessment: * Assessment: 1.??Annual physical exam - Z 00.00 (Primary)??2.??Encounter for screening for other disorder - Z13.89??3.??Encounter for screening for depression - Z13.31??4.??Chronic systolic heart failure - I50.22??5.??Asthma, unspecified asthma severity, unspecified whether complicated, unspecified whether persistent - J45.909??6.??Depression, unspecified depression type - F32.9??7.??Unspecified atrial fibrillation - I48.91??8.??Morbid obesity - E66.01??9.??Cardiomyopathy, unspecified type - I42.9??10.??Chronic anticoagulation - Z79.01?? Acute Concerns/Problem List: 09/09/2023 Pt presents for MAWV Status post permanent pacemaker placement, left anterior chest Chronic conditions otherwise stable Can discontinue Breo 3-month follow-up *DNR Reviewed with patient the importance of medication and treatment plan compliance with BP goal of less then 140/90 per JNC 8 guidelines based on patient's age. This will ensure optimal health outcomes and prevent target organ damage. Made aware that uncontrolled hypertension may be silent and result in a stroke, heart attack, renal failure or even . Discussed the rationale for individualized medication regimen and the effects of their BP. Instructed to seek emergent care if the patient develops a headache, blurry vision, dizziness, chest pain or pressure. Patient seen for MEDICARE WELLNESS VISIT and examined. Comprehensive discussion was done on the following. 1. Nutrition: It is important to follow a healthy diet based on lots of vegetables and legumes and good fat. Avoid processed food and processed carbohydrates. Learn to prepare your own meals. Learn to read labels and avoid high fructose corn syrup, processed chemicals added to increase shelf life and preprepared meals. Avoid fast foods. Learn to eat slowly and plan meals for a week. Try to count calories and be mindful off daily calorie intake. Get into the habit of keeping an eye on your weight by using an appropriate scale. Learn to log exercise and discussed fitness Apps like LevelUp which can help keep log off calories taken versus calories burned. Local food should be preferred. Discussed Dirty Dozen Versus Clean Fifteen. Discussed healthy supplements like fish oil, Tumeric, Curcumin, Melatonin, Resveratrol, Probiotics, Vitamin-D, Alpha-Lipoic acid, Vitamin-D and coconut oil. 2. It is important to exercise regularly. Is a good habit to walk at least 30-45 minutes a day. Gentle weightlifting with standard precautions to protect the back. Finding activity like cycling or hiking and get into the habit of engaging in it. Stretching before and after the exercises important. It is also important to contact me if there are any problems like shortness of breath, chest pain, back pain and joint or muscle pain associated with the exercise. 3. Discussed age appropriate gender specific screening guidelines. Colonoscopy needs to start at age 45 with stool for occult blood as appropriate. There is a new test that can test for genetic abnormalities in the stool sample. This would not replace a colonoscopy but could be used as a screening tool for patients who do not want a colonoscopy. We discussed the importance of early detection of colon cancer. 4. Discussed current gender specific guidelines with respect to breast examination, mammogram and pap smear for early detection of breast and cervical cancer. Patient advised to follow up with these appointments. 5. Discussed safe driving and no use of smart phone while driving 6. Age-appropriate immunizations were discussed. A tetanus booster is needed every 10 years. Flu vaccine is recommended every year just before the start of the flu season. Shingles vaccine is recommended after age 50 but not all insurances cover it. Pneumonia vaccine is given after age 65 unless there are certain comorbidities for which it is started earlier. Newly approved RSV vaccine was also discussed COVID booster discussed 7. Diagnostic labs were discussed. These could include CBC CMP and lipids with fasting blood glucose and insulin levels. Vitamin D and hemoglobin A1c testing might be appropriate. 8. Patient and I had a detailed discussion on healthcare proxy and will follow. . I gave form for that as well as [place] order for life sustaining treatment. I screen for depression and she seems to be okay. I counseled on elimination of refined carbohydrates and processed food 9. Patient will be tested for dementia by neuropsychologica l testing if warranted and deemed appropriate by provider Of note, some information is being carried forward from prior records for informational purposes only and is being cited so that efficiency, safety and quality of the patient's care is not compromised This note was prepared using voice recognition software and direct typing Please excuse inadvertent procurement accountant or typing errors, or uncorrected word substitutions Although every attempt has been made by the provider to proofread this document, occasional misspellings and typographical errors may still be present Due to the previous pandemic, and the use of personal protective equipment (PPE) This may decrease voice recognition accuracy Inadvertent procurement accountant errors may occur. Plan: * Treatment: * Procedure Codes:??G0439 JUAN AL WELLNESS VST; PPS SUBSQT VST, G0442 ANNUAL ALCOHOL MISUSE SCREEN 15 MIN, Modifiers: 59 , G0444 ANNUAL DEPRESSION SCREENING 15 MIN, Modifiers: 59 , [id number] ADVNCD CARE PLAN 30 MIN, Modifiers: 33 * Images: Billing Information: * Visit Code:?? * Procedure Codes:?? G0439 ANNUAL WELLNESS VST; PPS SUBSQT VST. G0442 ANNUAL ALCOHOL MISUSE SCREEN 15 MIN. Modifiers: 59 G0444 ANNUAL DEPRESSION SCREENING 15 MIN. Modifiers: 59 [id number] ADVNCD CARE PLAN 30 MIN. Modifiers: 33 Care Plan Details* * Sign off status: Completed true * Provider:??LORIN COLVIN NP Date:??08/12 History and Physical Notes * HPI (History of Present Illness) Category Sub-Category Detail Notes Category Not es Constitutional Patient is here for a Medicare wellness visit. Complete paperwork was reviewed and updated and has been filed and scan. Age appropriate screening measures reviewed Depression screen completed. Alcohol audit screening completed. Obesity screen completed. Cardiovascular risk stratification screen completed. Cognition assessed Fall risk assessed Discussed healthcare proxy. Discussed [place] order for life sustaining treatment, Comprehensive fasting labs reviewed Patient seen and examined. Full past medical history, social history, family history, allergies and current medications were reviewed and updated. 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 Lisinopril 2.5mg also started 05/2023. Recent echocardiogram at the end of March worsening EF, continues declining to be started on entresto,Patient hesitant about this I do not want to be the 89-year-old in the halfway with a 39-year-old heart followed by HENRIQUE Aranda, retiring this year Pt has been on coumadin/warfarin since 2005 INR managed by [facility] Follows neurologist r/t ?Parkinsons- Dr. Ellington in [place], last appointment 1-2 weeks ago. Still reporting vivid dreams and tremors, on Trazodone 100mg at bedtime. SOB- seen [facility]ter for PFTs and s/p hospitalization in June and states he passed all the tests. Wondering if he can discontinue Breo History of prostate cancer, s/p radiation tx 2018 Reports his urinary symptoms had been better on oxybutynin and terazosin, follows with urologist regularly. He reports compliance with medications MOL, HCP IN PLACE *DNR Hospitalization hx- June 2022- PNA, [facility] 4 days IV Abx, d/c home. Recommended to see Dr. Russell. Comprehensive labs, 08/2023 Electrolytes renal function LFTs are stable CBC is stable Total cholesterol 139, LDL 76, HDL 45, triglycerides 91 TSH 4.16 UA unremarkable Vitamin D 27 normal T4 Health Maintenance. Patient has been vaccinated for COVID-19. x 3 MRN vax flu 2022: 12/2022 rsv: discussed vax, to get at pharm cscope- 2017 DXA- defers shingles- 11/2017 PNA- states got a couple, cannot recall tetanus- 2020 Exercise: 5 days a week s resitance stationary cycling 30 minutes a day. Examination Category Sub-Category Detail Notes Category Not es General Examination GENERAL APPEARANCE: in no ac juan carlos distress, well developed, well nourished morbid obesity HEAD: normocephalic, atrau matic EYES: pupils equal, round, reactive to light and accommodation EARS: normal THROAT: clear NECK/THYROID: neck supple, full ra nge of motion, no cervical lymphadenopathy HEART: no murmurs, regular rate and rhythm, S1, S2 normal LUNGS: clear to auscultatio n bilaterally ABDOMEN: normal, bowel sounds present, soft, nontender, nondistended NEUROLOGIC: nonfocal, motor stre ngth normal upper and lower extremities, sensory exam intact SKIN: no suspicious lesion s, warm and dry EXTREMITIES: no clubbing, cyanosi s, or edema MUSCULOSKELETAL: + left 3rd digit mis sing+ old TKR scars on knees bilaterally+ uses cane to ambulate at baseline+ Katelynn test to L hand ORAL CAVITY: mucosa dry, pt says he held off hydrating this morning for the clinic visit, says he usually tries to stay well hydrated
--- OUTSIDE RECORDS SUMMARY | 2024-03-22 19:06 | XMS_ITS ---
Author Organization [facility] Address [address] [place] [address] Care Team Providers Care Professor Of Theatre Name Role Phone Vargas, Kimanimati Primary Care Provider Rea Severino Unavailable [phone] Allergies Allergen (clinical drug ingredient) Drug/Non Drug Allergy documented on EMR Reaction Allergy Type Onset Date Status oxycodone OxyCONTIN Unknown Drug Allergy Active REASON FOR VISIT Pcp-09/25/23, Painful Toe(s), Skin Problem Medications Medication SIG (Take, Route, Frequency, Duration) Notes Start Date End Date Status Lisinopril 2.5 MG 1 tablet Orally Once a day Active oxyBUTYnin Chloride 5 MG 1 tablet Orally Twice a day for 30 day(s) Not-Taking Metoprolol Succinate 25 MG 1 capsule Ora lly Once a day for 30 day(s) Not-Taking potassium 1 tab Oral for 14 days 20MEQ Active Hydrocortisone 2.5 % 1 application Externally Twice a day for 30 days Active Lasix 40 MG 1 tablet Orally Once a day for 30 day(s) Active Simvastatin 10 MG 1 tablet in the evening Orally Once a day for 30 day(s) Active Terazosin HCl 10 MG 1 capsule at bedtime Orally Once a day for 30 day(s) Active Warfarin Sodium 5 MG 1 tablet Orally Onc e a day for 30 day(s) Active Aspirin 81 MG 1 tablet Orally Once a day for 30 day(s) Active traZODone HCl 100 MG 1 tablet at bedtime Orally Once a day for 30 day(s) Active Breo Ellipta 100-25 MCG/INH 1 puff Inhalation Once a day Active tylenol 1 tab Oral for 14 days PRN Active Social History Tobacco Use: Social History Observation Description Date Details (start date - stop date) Former Smoker NA - NA Tobacco Use/Smoking Question Answer Notes Are you a: former smoker Additional Findings: Tobacco Non-User Current no n-smoker Tobacco use other than smoking: Question Answer Notes Are you an other tobacco user? No Vital Signs Height 5 ft 10 in in 11/15/2023 Weight 250 lbs 11/15/2023 BMI 35.87 kg/m2 11/15/2023 Blood pressure systolic 120 mm Hg 11/15/19 24 Blood pressure diastolic 68 mm Hg 024 Encounters Encounter Location Date Provider Diagnosis [facility] [address] [address] 11/15/2023 Rea Josias Hammer toe of left foot M20.42 and Allergic dermatitis L23.9 Assessments Encounter Date Diagnosis (ICD Code) Assessment Notes Treatment Notes Treatment Clinical Notes Section Notes 11/15/2023 Hammer toe of left foot (ICD-10 - M20.42) Improvement 11/15/2023 Allergic dermatitis (ICD-10 - L23.9) Plan Of Treatment Medication Medication Name Sig Start Date Stop Date Notes Hydrocortisone 2.5 % 1 application Exter tay Twice a day for 30 days Next Appt Details Follow Up: as scheduled, [place] son: Provider Name:Rea Ferrara , 06/22/2024 09:15:00 AM, [address] [place] [address], [id number], Procedure Notes * Category Sub-Category Detail Notes Dressing Change: Type: bandaide Topical: bacitacin applied Removal of: sutures performed wi th sterile forceps/suture scissors or #15 blade, area cleaned with alcohol prior to removal Progress Notes * Dwight TURKOB:[birth year] (88 yo M)Acc No.[id number]:11/15/2023 Patient:?Eh Turk Provider:Duane Ferrara DPM :1935???Age:88 Y???Sex:Male James e:11/15/2023 Address:[address] [place], [place] [id number] Pcp:Wilfredo Vargas Subjective: * Chief Complaints: * ???Pcp-09/25/23Painful Toe(s )Skin Problem * HPI: ???Toe pain:?Treatments:?Flexor tenotomy,?.?Skin problems:?Nature:?itching.?Location:?Left , Top.?Duration:?several days.?Onset/Cause:?after injection.?Course:?worse.? * ROS:?General/Constitutional:?Nausea?denies.?Vomiting?denies.?Hunger Thirst?denies.?Loss appetite?denies.?Chills?denies.?Fatigue?denies.?Fever?denies.?Night Sweats?denies.?Unexplained weight loss?denies.?Unexplained weight gain?denies.?HEENTM:?Dentures?denies.?Dizziness?denies.?Glasses/contacts?denies.?Retinopathy?de nies.?Blurred/double vision?denies.?TMJ?denies.?Discharge/drainage?denies.?Implants?denies.?Sore throat?denies.?Dental implants?denies.?Hard of hearing ?admits.?Difficulty chewing/swallowing/speaking?denies.?Nose bleeds?denies.?Sore mouth?denies.?Respiratory:?On Oxygen?denies.?Pneumonia/pleurisy?denies.?Bronchitis?denies.?Emphysema?denies.?C oughing?denies.?Cough blood?denies.?Shortness of breath?denies.?Wheezing?denies.?Cardiovascular:?Pacemaker?denies.?MVP?denies.?WPW?denies.?CHF?denies.?Heart attack?denies.?Septal defect?denies.?Rapid beat?denies.?Chest pain ?denies.?Atrial Fib.?admits.?Murmur/Palpitations?denies.?Gastrointestinal:?Hemorrhoids?denies.?Stomach/Abdominal pain?denies.?Dark blood stool?denies.?Irritable bowel ?denies.?Constipation?denies.?Diarrhea?denies.?Hematology:?Swelling?denies.?Clots?denies.?Varicose Veins?denies.?Bruising?denies.?Bleeding problem?admits.?Genitourinary:?Blood urine?denies.?Frequent/Painfu/urination/bladder control?denies.?Kidney stones?denies.?Infection (UTI)?denies.?Nephropathy?denies.?sex trans dis (STD)?denies.?Prostate?admits.?Musculoskeletal:?Hammertoes?admits.?Bunions?denies.?Back Pain?denies.?Muscle Cramps/ Resting?denies.?Muscle cramps / walking?denies.?Generalized aches and pains?denies.?Weakness?denies.?Integ.:?Cazares?denies.?Scars?denies.?Corns/calluses?admits.?Ingrown nails?denies.?Painful nails?denies.?Open Sores?admits.?Rashes?denies.?Neurologic:?Difficulty sleeping?admits.?Brain disorder?denies.?Numbness?denies.?Balance trouble?admits.?Confusion?denies.?Fainting/blackouts?denies.?Tingling?denies.?Tr emors?denies.? * Medical History:? * Surgical History:?knee repla cement 10/09/2004heart valve replacement 04/14/2017pacemaker 05/14/2023 * Hospitalization/Major Diagno stic Procedure:?[facility] - pneumonia 06/29-07/03/22 * Family History:?Mother: dece ased.?Father: .? * Social History:?Tobacco Use:?Tobacco Use/Smoking?Are you a:?former smoker ?Additional Findings: Tobacco Non-User?Current non-smoker ?Tobacco use other than smoking?Are you an other tobacco user??No ???Miscellaneous:?no Caffeine. ?Children: yes. ?Exercise: yes, Stationary Bike. ?Marital status: . ?Occupation: Retired- [employer]. * Medications:?TakingLisinopri l 2.5 MG Tablet 1 tablet Orally Once a daytylenol 1 tab Oral , Notes: PRNBreo Ellipta 100-25 MCG/INH Aerosol Powder Breath Activated 1 puff Inhalation Once a daytraZODone HCl 100 MG Tablet 1 tablet at bedtime Orally Once a dayAspirin 81 MG Tablet Chewable 1 tablet Orally Once a dayWarfarin Sodium 5 MG Tablet 1 tablet Orally Once a dayTerazosin HCl 10 MG Capsule 1 capsule at bedtime Orally Once a daySimvastatin 10 MG Tablet 1 tablet in the evening Orally Once a dayLasix 40 MG Tablet 1 tablet Orally Once a daypotassium 1 tab Oral , Notes: 20MEQTaking Lisinopril 2.5 MG Tablet 1 tablet Orally Once a dayTaking tylenol 1 tab Oral , Notes: PRNTaking Breo Ellipta 100-25 MCG/INH Aerosol Powder Breath Activated 1 puff Inhalation Once a dayTaking traZODone HCl 100 MG Tablet 1 tablet at bedtime Orally Once a dayTaking Aspirin 81 MG Tablet Chewable 1 tablet Orally Once a dayTaking Warfarin Sodium 5 MG Tablet 1 tablet Orally Once a dayTaking Terazosin HCl 10 MG Capsule 1 capsule at bedtime Orally Once a dayTaking Simvastatin 10 MG Tablet 1 tablet in the evening Orally Once a dayTaking Lasix 40 MG Tablet 1 tablet Orally Once a dayTaking potassium 1 tab Oral , Notes: 20MEQNot-Taking/PRNMetoprolol Succinate 25 MG Capsule ER 24 Hour Sprinkle 1 capsule Orally Once a dayoxyBUTYnin Chloride 5 MG Tablet 1 tablet Orally Twice a dayMedication List reviewed and reconciled with the patientNot-Taking/PRN Metoprolol Succinate 25 MG Capsule ER 24 Hour Sprinkle 1 capsule Orally Once a dayNot-Taking/PRN oxyBUTYnin Chloride 5 MG Tablet 1 tablet Orally Twice a dayMedication List reviewed and reconciled with the patient * Allergies:?OxyCONTINyes[Brandon rgies Verified] Objective: * Vitals:?Ht: 5 ft 10 in, Wt: 250, BMI: 35.87, Shoe size: 10.5, BP: 120/68 mm Hg, Wt-k.4 kg. * Examination: ???Orthopedic: ?DIGITAL DEFORMITIES:?NO FURTHER, Digital contracture, PIPJ, T2 Digit without pain and in rectus position with healed incision site,MPJ Contracture/Dorsal sublux. NOW WELL REDUCED with digit in rectus position with pushup test, incision site, healed.?Dermatologic: ?SKIN FINDINGS:?Skin shows sign(s) of, small raised lesions?, pruritus, excoriations, erythema, inflammation, left dorsal.? Assessment: * Assessment: 1.?Hammer toe of left foot - M20.42, Improvement?2.?Allergic dermatitis - L23.9 (Primary)? Plan: * Treatment: * Procedures:?Dressing Change::?Type:?bandaide.?Topical:?bacitacin applied.?Removal of:?sutures performed with sterile forceps/suture scissors or #15 blade, area cleaned with alcohol prior to removal.? * Procedure Codes:? * Preventive Medicine:? ??Counseling:?Discussion:?-13: Office or other outpatient visit for the evaluation and management of an established patient, which required a medically appropriate history and/or examination and LOW level of DECISION MAKING for: 1 STABLE ACUTE UNCOMPLICATED PROBLEM, 2 OR MORE MINOR PROBLEMS, OR 1 STABLE CHRONIC PROBLEM, THAT POSE(S) A LOW RISK FOR MORBIDITY/MORTALITY. The visit on the day of the encounter encompassed interpreting the data and educating the patient as to the nature of their condition, treatment options available according to their individual PMH, meds, allergies, and overall health/living conditions, as well as any potential risks or complications that may occur from a failure to adhere to, and participate in, the recommended course of therapy. The discussion included a complete verbal, and/or written explanation of the examination results, any x-rays taken, the proposed diagnosis, and outline of the treatment plan. A schedule for future care needs was also explained. The patient verbalized an understanding of the instructions at this time and agreed to be an active participant in their treatment. If the patient should think of any questions or concerns after the visit, I have encouraged the patient to call the office.?Dermatitis:?The patient was counseled on the diagnosis, potential etiologies, and treatment options for their skin condition. We discussed the risks and benefits of each option from performing no treatment, to utilizing OTC topical skin creams/ointments, to utilizing prescription topical creams/ointments, to utilizing customized compounded topical medications and use of nocturnal occlusion with any/all previously detailed therapies. We discussed the advantages and disadvantages of each possible treatment and importance for adherence to all the recommended therapies for optimum success and avoid potential complications such as open sore/infection/possible hospitalization. We discussed the potential effectiveness of each topical preparation as well as each ones possible side effects and/or patient medication interactions. Patient questions re: use, dosage, successful outcomes, and application consistency were reviewed and the patient verbalized that all answers were clearly understood. The patient has decided to apply Rx Hydrocortisone skin creams to their feet save the interspaces. Such was sent to their pharmacy at the time of visit.? * Follow Up:?as scheduled * Images: * Sign off status: Completed true * Provider:?Rea Ferrara DPM Date:?2023 Generated for Jose aleman/Reno/Abilio on:?03/22/2024 07:05 PM EST History and Physical Notes * HPI (History of Present Illness) Category Sub-Category Detail Notes Category Not es Toe pain Treatments: Flexor tenotomy, Skin problems Nature: itching Location: Left , Top Duration: several days Onset/Cause: after injection Course: worse Examination Category Sub-Category Detail Notes Category Not es Dermatologic SKIN FINDINGS: Skin shows sign( s) of, small raised lesions , pruritus, excoriations, erythema, inflammation, left dorsal Orthopedic DIGITAL DEFORMITIES: NO FURTHER, Digital contracture, PIPJ, T2 Digit without pain and in rectus position with healed incision site,MPJ Contracture/Dorsal sublux. NOW WELL REDUCED with digit in rectus position with pushup test, incision site, healed
--- OUTSIDE RECORDS SUMMARY | 2024-03-22 19:06 | XMS_ITS ---
Author Organization [facility] Address [address] [place] [address] Care Team Providers Care Estate Planning Paralegal Name Role Phone Wilfredo Vargas Primary Care Provider Rea Severino [phone] Mcnair Encounters Encounter Location Date Provider Diagnosis [address] [address] 01/06/2024 Rea Ferrara Plan Of Treatment Next Appt Details Provider Name:Rea Ferrara , 06/22/2024 09:15:00 AM, [address] [place], [address], Progress Notes * BURKEDwight STEINEROB:[birth year] (88 yo M)Acc No.[id number]:01/06/2024 Progress Note Patient:Eh MOONEY Provider:?Rea Ferrara DPM :1935???Age:88 Y???Sex:Male James e:01/06/2024 Address:[id number] Pcp:Wilfredo Vargas Subjective: * Chief Complaints: * ???1. Dr Mcnair. * Medical History:? Objective: * Vitals:? Assessment: Plan: * Treatment: * Images: * The named appointment provid er may or may not be the originator of this progress note, and it is not deemed complete until electronically signed by the appointment provider. Sign off status: Pending * Provider:Duane Ferrara DPM Date:?2023 Generated for Printi ng/Reno/Jaroditting on:?03/22/2024 07:05 PM EST
--- OUTSIDE RECORDS SUMMARY | 2024-03-22 19:06 | XMS_ITS ---
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
--- OUTSIDE RECORDS SUMMARY | 2024-03-22 19:06 | XMS_ITS ---
[facility] Organization [facility] janina Robinson Address [address] [place] [address] Care Team Providers Care Cvt Rn Name Role Phone Vargas, Kimanimati Primary Care Provider Rea Severino Unavailable [phone] Allergies Allergen (clinical drug ingredient) Drug/Non Drug Allergy documented on EMR Reaction Allergy Type Onset Date Status oxycodone OxyCONTIN Unknown Drug Allergy Active REASON FOR VISIT Painful nail(s) aggrevated by shoes and causing difficulty standing/walking., Wart(s), Toe Pain Medications Medication SIG (Take, Route, Frequency, Duration) Notes Start Date End Date Status Breo Ellipta 100-25 MCG/INH 1 puff Inhalation Once a day Active traZODone HCl 100 MG 1 tablet at bedtime Orally Once a day for 30 day(s) Active tylenol 1 tab Oral for 14 days PRN Active oxyBUTYnin Chloride 5 MG 1 tablet Orally Twice a day for 30 day(s) Not-Taking Lisinopril 2.5 MG 1 tablet Orally Once a day Active Lasix 40 MG 1 tablet Orally Once a day for 30 day(s) Active potassium 1 tab Oral for 14 days 20MEQ Active Simvastatin 10 MG 1 tablet in the evening Orally Once a day for 30 day(s) Active Metoprolol Succinate 25 MG 1 capsule Ora lly twice a day for 30 days Active Hydrocortisone 2.5 % 1 application Externally Twice a day for 30 days Unknown Terazosin HCl 10 MG 1 capsule at bedtime Orally Once a day for 30 day(s) Active Aspirin 81 MG 1 tablet Orally Once a day for 30 day(s) Active Warfarin Sodium 5 MG 1 tablet Orally Onc e a day for 30 day(s) Active Social History Tobacco Use: Social History Observation Description Date Details (start date - stop date) Former Smoker NA - NA Tobacco Use/Smoking Question Answer Notes Are you a: former smoker Additional Findings: Tobacco Non-User Current no n-smoker Alcohol Screen Question Answer Notes Did you have a drink containing alcohol in the p ast year? No Points 0 Interpretation Negative Tobacco use other than smoking: Question Answer Notes Are you an other tobacco user? No Vital Signs Height 5 ft 10 in in 03/16/2024 Weight 250 lbs 03/16/2024 BMI 35.87 kg/m2 03/16/2024 Procedures Procedure Date Ordered Date Performed Result Body Sit e 13091-TZSHLEU NAIL, 6 OR MORE 03/16/2024 N/A 62593- Debride <25 sq cm 03/16/2024 N/A Encounters Encounter Location Date Provider Diagnosis [facility] [address] [address] 03/16/2024 Rea Ferrara Plantar wart B07.0 ; Other hammer toe(s) (acquired), left foot M20.42 ; Tinea unguium B35.1 ; Pain in right toe(s) M79.674 ; Pain in left toe(s) M79.675 and Skin ulcer of toe of left foot, limited to breakdown of skin L97.521 Assessments Encounter Date Diagnosis (ICD Code) Assessment Notes Treatment Notes Treatment Clinical Notes Section Notes 03/16/2024 Plantar wart (ICD-10 - B07.0) 03/16/2024 Other hammer toe(s) (acquired), left foot (ICD-10 - M20.42) 03/16/2024 Tinea unguium (ICD-10 - B35.1) 03/16/2024 Pain in right toe(s) (ICD-10 - M79.674) 03/16/2024 Pain in left toe(s) (ICD-10 - M79.675) 03/16/2024 Skin ulcer of toe of left foot, limited to breakdown of skin (ICD-10 - L97.521) Plan Of Treatment Pending Test Test Name Order Date 62612-HELGZYL NAIL, 6 OR MORE 03/16/2024 53104- Debride <25 sq cm 03/16/2024 Next Appt Details Follow Up: 2 Months, Reason: Provider Name:Rea Ferrara , 06/22/2024 09:15:00 AM, [address] [place], [address], Procedure Notes * Category Sub-Category Detail Notes Debride Nail 6-10 Nail debridement Performance o f this nail treatment by a nonprofessional would put this patients foot and overall health at risk. Therefore, debridement to affected nail(s), as described in exam, was performed extensively to reduce/remove overall nail length, girth, thickness, subungual debris, and necrotic tissue, by manual and/or electrical means through the use of a nail nipper and/or dremel-type corn grinder, to a more viable healthy nail plate or bed tissue 6-10 nails in total. Silver nitrate was used for any petechial bleeding as necessary. Definitive antifungal treatment options, both pharmaceutical and surgical, have been reviewed and discussed with the patient. The patient solely prefers the use of intermittent/as needed professional debridement services for their nail condition and understands the need for additional periodic treatments to maintain effectiveness in symptomatic relief - 57118 Patient chooses debridement treatmen t only; no pharmaceutical tx Debride skin< 25 sq cm Open wound NEUROPATH Y: Physician of record performed open wound selective debridement of first 25 sq cm or less, of devitilized necrotic/nonviable soft tissue, fibrin, and exudate extending from the epidermis through the dermis, utilizing sharp dissection with sterile 15 blade, and/or tissue nippers. Hemostasis was controlled through direct pressure. Sterile antibiotic dressing applied, ANESTHESIA was not required due to presence of NEUROPATHY. Post debridement measurements: 10 mm x 8mm x2 mm. Character of the wound post debridement is stable (24895) Progress Notes * Dwight TURKOB:[birth year] (88 yo M)Acc No.[id number]:03/16/2024 Progress Note Patient:?BURKEKathyEh Provider:?Rea Ferrara DPM :1935???Age:88 Y???Sex:Male James e:03/16/2024 Address:[address] [place] [address] [facility] Pcp:Wilfredo Vargas Subjective: * Chief Complaints: * ???Painful nail(s) aggrevate d by shoes and causing difficulty standing/walking.Wart(s)Toe Pain * HPI: ???Painful Nails:?Pt States Last PCP Visit:?Date:?01/26/2024 ???Skin problems:?Pt States PCP Visit: ?DATE?01/26/2024 ???Toe pain:?Nature:?open sores.?Location:?2nd toe, , Left foot.?Duration:?, several weeks.?Course:?, worse.?Aggravated by:?shoes, any pressure.?Treatments:?, none.? * ROS:?General/Constitutional:?Nausea?denies.?Vomiting?denies.?Hunger Thirst?denies.?Loss appetite?denies.?Chills?denies.?Fatigue?denies.?Fever?denies.?Night Sweats?denies.?Unexplained weight loss?denies.?Unexplained weight gain?denies.?HEENTM:?Dentures?denies.?Dizziness?denies.?Glasses/contacts?denies.?Retinopathy?de nies.?Blurred/double vision?denies.?TMJ?denies.?Discharge/drainage?denies.?Implants?denies.?Sore throat?denies.?Dental implants?denies.?Hard of hearing ?admits.?Difficulty chewing/swallowing/speaking?denies.?Nose bleeds?denies.?Sore mouth?denies.?Respiratory:?On Oxygen?denies.?Pneumonia/pleurisy?denies.?Bronchitis?denies.?Emphysema?denies.?C oughing?denies.?Cough blood?denies.?Shortness of breath?denies.?Wheezing?denies.?Cardiovascular:?Pacemaker?denies.?MVP?denies.?WPW?denies.?CHF?denies.?Heart attack?denies.?Septal defect?denies.?Rapid beat?denies.?Chest pain ?denies.?Atrial Fib.?admits.?Murmur/Palpitations?denies.?Gastrointestinal:?Hemorrhoids?denies.?Stomach/Abdominal pain?denies.?Dark blood stool?denies.?Irritable bowel ?denies.?Constipation?denies.?Diarrhea?denies.?Hematology:?Swelling?denies.?Clots?denies.?Varicose Veins?denies.?Bruising?denies.?Bleeding problem?admits.?Genitourinary:?Blood urine?denies.?Frequent/Painfu/urination/bladder control?denies.?Kidney stones?denies.?Infection (UTI)?denies.?Nephropathy?denies.?sex trans dis (STD)?denies.?Prostate?admits.?Musculoskeletal:?Hammertoes?admits.?Bunions?denies.?Back Pain?denies.?Muscle Cramps/ Resting?denies.?Muscle cramps / walking?denies.?Generalized aches and pains?denies.?Weakness?denies.?Integ.:?Cazares?denies.?Scars?denies.?Corns/calluses?admits.?Ingrown nails?admits.?Painful nails?admits.?Open Sores?admits.?Rashes?denies.?Neurologic:?Difficulty sleeping?admits.?Brain disorder?denies.?Numbness?denies.?Balance trouble?admits.?Confusion?denies.?Fainting/blackouts?denies.?Tingling?denies.?Tr emors?denies.? * Medical History:? * Surgical History:?knee repla cement 10/09/2004heart valve replacement 04/14/2017pacemaker 05/14/2023 * [place]Major Diagno stic [place] [place] * Family History:?Mother: dece ased.?Father: .? * Social History:?Tobacco Use:?Tobacco Use/Smoking?Are you a:?former smoker ?Additional Findings: Tobacco Non-User?Current non-smoker ?Tobacco use other than smoking?Are you an other tobacco user??No ???Drugs/Alcohol:?Drugs?Have you used drugs other than those for medical reasons in the past 12 months??No ?Alcohol Screen?Did you have a drink containing alcohol in the past year??No ?Points?0 ?Interpretation?Negative ???Miscellaneous:?Caffeine: no. ?Children: yes. ?Exercise: yes, Stationary Bike. ?Marital status: . ?Occupation: Retired- [employer]. * Medications:?TakingLisinopri l 2.5 MG Tablet 1 tablet Orally Once a day tylenol 1 tab Oral , Notes to Pharmacist: J Carlos Ellipta 100-25 MCG/INH Aerosol Powder Breath Activated 1 puff Inhalation Once a day traZODone HCl 100 MG Tablet 1 tablet at bedtime Orally Once a day Aspirin 81 MG Tablet Chewable 1 tablet Orally Once a day Warfarin Sodium 5 MG Tablet 1 tablet Orally Once a day Terazosin HCl 10 MG Capsule 1 capsule at bedtime Orally Once a day Simvastatin 10 MG Tablet 1 tablet in the evening Orally Once a day Lasix 40 MG Tablet 1 tablet Orally Once a day potassium 1 tab Oral , Notes to Pharmacist: 20MEQMetoprolol Succinate 25 MG Capsule ER 24 Hour Sprinkle 1 capsule Orally twice a day Taking Lisinopril 2.5 MG Tablet 1 tablet Orally Once a day Taking tylenol 1 tab Oral , Notes to Pharmacist: PRNTaking Breo Ellipta 100-25 MCG/INH Aerosol Powder Breath Activated 1 puff Inhalation Once a day Taking traZODone HCl 100 MG Tablet 1 tablet at bedtime Orally Once a day Taking Aspirin 81 MG Tablet Chewable 1 tablet Orally Once a day Taking Warfarin Sodium 5 MG Tablet 1 tablet Orally Once a day Taking Terazosin HCl 10 MG Capsule 1 capsule at bedtime Orally Once a day Taking Simvastatin 10 MG Tablet 1 tablet in the evening Orally Once a day Taking Lasix 40 MG Tablet 1 tablet Orally Once a day Taking potassium 1 tab Oral , Notes to Pharmacist: 20MEQTaking Metoprolol Succinate 25 MG Capsule ER 24 Hour Sprinkle 1 capsule Orally twice a day Not-Taking/PRNoxyBUTYnin Chloride 5 MG Tablet 1 tablet Orally Twice a day Not-Taking/PRN oxyBUTYnin Chloride 5 MG Tablet 1 tablet Orally Twice a day UnknownHydrocortisone 2.5 % Cream 1 application Externally Twice a day Medication List reviewed and reconciled with the patientUnknown Hydrocortisone 2.5 % Cream 1 application Externally Twice a day Medication List reviewed and reconciled with the patient * Allergies:?OxyCONTINyes[Brandon rgies Verified] Objective: * Vitals:?Ht: 5 ft 10 in, Wt: 250, BMI: 35.87, Shoe size: 10.5, Wt-k.4 kg. * Examination: ???General Examination: ?GENERAL APPEARANCE:?Reveals a pleasant, alert, well nourished, well- developed, well hydrated individual, who demonstrates proper attention to hygiene/body habitus, and is in no acute distress, Pt serves as own historian for office visit today.?ORIENTED:?person, place, and time.?Nails: ?NAILS are:?Elongated, overgrown, dystrophic, lytic, greater than 3mm thick, discolored and friable with crumbly malodorous subungual debris, with pain on palpation, TA, T1,?T3 T4, T5 T6,T9, .?Dermatologic: ?SKIN FINDINGS:?Skin exam reveals Keratotic lesion(s) located at , SUB MTH (s) , 5 ,, B/L, 1, B/L, Medial-plantar Midfoot, Left.?VERRUCA:?NO FURTHER SIGN of mosaic papule(s) with skin lines now evident and visible.?ULCER:?Distal, T1, LOCATION, SIZE, 8mm X 7mm X 2mm, BASE, granular, RIM, hyperkeratotic, UNDERMINING, absent, TRACKING, Full thickness breakdown of skin, DRAINAGE, serosanguineous, mild, NECROTIC TISSUE, loosely-adherent, yellow slough, MALODOR, absent, CALOR, absent, ERYTHEMA, absent, PAIN ON PALPATION, present.?Neurological: ?SENSORY:?Neurological exam demonstrates, reduced light touch sensation, reduced sharp/dull pin prick discrimination , reduced vibration sensation, 5.07 monofilament test performed at plantar aspects of 5 varied sites per foot shows sensation, reduced , at Forefoot, B/L, Pt relates, burning ,.?Vascular: ?DP PULSES(B):?2/4, B/L.?PT PULSES(B):?2/4, B/L.?Orthopedic: ?MUSCLE STRENGTH:?5/5 all groups in a symmetrical fashion, B/L.?GAIT ABNORMALITY:?antalgic.?DIGITAL DEFORMITIES:?Digital contracture, PIPJ, 2-5 B/L, incompl-reducible with WB, or to push-up test, no over, nor underlapping , Reveals pain/swelling/redness/enlargement of DIPJ T1.? Assessment: * Assessment: 1.?Other hammer toe(s) (acqu ired), left foot - M20.42 (Primary)???2.?Plantar wart - B07.0???Specify :Resolved???3.?Tinea unguium - B35.1???4.?Pain in right toe(s) - M79.674???5.?Pain in left toe(s) - M79.675???6.?Skin ulcer of toe of left foot, limited to breakdown of skin - L97.521??? Plan: * Treatment: 2.?Skin ulcer of toe of left foot, limited to breakdown of skin?Procedure: 23536- Debride <25 sq cm * Procedures:?Debride Nail 6-10:?Nail debridement?Performance of this nail treatment by a nonprofessional would put this patients foot and overall health at risk. Therefore, debridement to affected nail(s), as described in exam, was performed extensively to reduce/remove overall nail length, girth, thickness, subungual debris, and necrotic tissue, by manual and/or electrical means through the use of a nail nipper and/or dremel-type corn grinder, to a more viable healthy nail plate or bed tissue 6-10 nails in total. Silver nitrate was used for any petechial bleeding as necessary. Definitive antifungal treatment options, both pharmaceutical and surgical, have been reviewed and discussed with the patient. The patient solely prefers the use of intermittent/as needed professional debridement services for their nail condition and understands the need for additional periodic treatments to maintain effectiveness in symptomatic relief - 24478.?Patient chooses ?debridement treatment only; no pharmaceutical tx.?Debride skin< 25 sq cm:?Open wound?NEUROPATHY: Physician of record performed open wound selective debridement of first 25 sq cm or less, of devitilized necrotic/nonviable soft tissue, fibrin, and exudate extending from the epidermis through the dermis, utilizing sharp dissection with sterile 15 blade, and/or tissue nippers. Hemostasis was controlled through direct pressure. Sterile antibiotic dressing applied, ANESTHESIA was not required due to presence of NEUROPATHY. Post debridement measurements: 10 mm x 8mm x2 mm. Character of the wound post debridement is stable (84465).? * Procedure Codes:?61356 DEBRI DE NAIL, 6 OR MORE, Modifiers: XS 23901 ACTIVE WOUND CARE/20 CM OR <, Modifiers: T1 * Preventive Medicine:? ??Counseling:?Discussion:?-14: Office or other outpatient visit for the evaluation and management of an established patient, which required a medically appropriate history and/or examination and MODERATE level of DECISION MAKING for: 1 OR MORE CHRONIC PROBLEM(S) THATS WORSENING, 2 STABLE CHRONIC PROBLEMS, A NEWLY DIAGNOSED PROBLEM WITH UNCERTAIN PROGNOSIS, AN ACUTE COMPLICATED INJURY WITH MULTIPLE TREATMENT OPTIONS, OR AN ACUTE PROBLEM WITH ACCOMPANYING SYSTEMIC SYMPTOMS, THAT POSE(S) A MODERATE RISK OF MORBIDITY. THIS CONDITION MAY ALSO INCLUDE RX DRUG MANAGEMENT, OR A DECISON FOR MINOR SURGERY. The visit on the day of the [...] have encouraged the patient to call the office.?Digital Surgery:?FLEXOR : Minimal Incision digital procedure consisting of Percutaneous Flexor Release was discussed with the patient, including the risks of the procedure vs and not having the procedure, the potential procedure complications, the anesthesia, and the usual post-op course. No guarentees were given. We discussed with the patient the complications such as delayed/non healing, excessive scarring, excessive swelling, failure of procedure, floppy toe, infection, numbness, chronic pain, recurrence of the condition, shortened toe, joint stiffness, and possible loss of limb/life. Alternatives to the procedure were also discussed, including conservative care, The patient would like to procede with surgical treatment, The patient will consider surgical treatment.?Digital Treatment:?HT- I explained to the patient the possible etiologies of Hammertoes, including genetics/foot type/shoegear/activity level/exercise routine and the risks/benefits of all the different treatment options for their pain including: No treatment at all, Rest, Ice, New/supportive/wider/deeper Shoegear, Digital Padding/Strapping/Taping/Bracing/Gel protective sleeves, Foot/Ankle AFO Bracing, Stretching exercises, Deep Tissue Massage, Arch support/shoe inserts with splay metatarsal padding, and Custom orthoses. I insisted that any digital devices be removed daily and not worn overnight for safety. The patient is to carefully examine the toes daily for any skin irritation while using any splinting or padding device. The advantages and disadvantages of each option were discussed and the patients questions re: shoegear, padding, custom vs prefabricated inserts, activity level, and consistency in home treatment regimens for optimal success were answered to their verbally confirmed satisfaction.?Verruca:?The patient was counseled on the present status of the lesion. Discussed reoccurence is common and the need to monitor the area daily and if any signs of reoccurence to present back to the office.? * Follow Up:?2 Months * Images: * Sign off status: Completed true * Provider:?Rea Ferrara DPM Date:?2023 Generated for Jose aleman/Reno/Abilio on:?03/22/2024 07:05 PM EST History and Physical Notes * HPI (History of Present Illness) Category Sub-Category Detail Notes Category Not es Toe pain Nature: open sores Location: 2nd toe, , Left foot Duration: , several weeks Course: , worse Aggravated by: shoes, any pressure Treatments: , none Painful Nails Pt States Last PCP Visit: Date:: 01/26/2024 Skin problems Pt States PCP Visit: DATE: 01/26/2024 Examination Category Sub-Category Detail Notes Category Not es Neurological SENSORY: Neurological exa m demonstrates, reduced light touch sensation, reduced sharp/dull pin prick discrimination , reduced vibration sensation, 5.07 monofilament test performed at plantar aspects of 5 varied sites per foot shows sensation, reduced , at Forefoot, B/L, Pt relates, burning , Dermatologic SKIN FINDINGS: Skin exam reveal s Keratotic lesion(s) located at , SUB MTH (s) , 5 ,, B/L, 1, B/L, Medial-plantar Midfoot, Left ULCER: Distal, T1, LOCATION , SIZE, 8mm X 7mm X 2mm, BASE, granular, RIM, hyperkeratotic, UNDERMINING, absent, TRACKING, Full thickness breakdown of skin, DRAINAGE, serosanguineous, mild, NECROTIC TISSUE, loosely-adherent, yellow slough, MALODOR, absent, CALOR, absent, ERYTHEMA, absent, PAIN ON PALPATION, present VERRUCA: NO FURTHER SIGN of m osaic papule(s) with skin lines now evident and visible Orthopedic GAIT ABNORMALITY: antalgic DIGITAL DEFORMITIES: Digital contracture , PIPJ, 2-5 B/L, incompl-reducible with WB, or to push-up test, no over, nor underlapping , Reveals pain/swelling/redness/enlargement of DIPJ T1 MPJ PATHOLOGY: MUSCLE STRENGTH: 5/5 all groups in a symmetrical fashion, B/L General Examination GENERAL APPEARANCE: Reveals a pleasant, alert, well nourished, well-developed, well hydrated individual, who demonstrates proper attention to hygiene/body habitus, and is in no acute distress, Pt serves as own historian for office visit today ORIENTED: person, place, and t vel Vascular DP PULSES(B): 2/4, B/L PT PULSES(B): 2/4, B/L VARICOSITIES: Nails NAILS are: Elongated, overg rown, dystrophic, lytic, greater than 3mm thick, discolored and friable with crumbly malodorous subungual debris, with pain on palpation, TA, T1, T3 T4, T5 T6,T9,
--- OUTSIDE RECORDS SUMMARY | 2024-03-22 19:06 | XMS_ITS | Patient Health Record ---
Author Organization [facility] Monique janina Garcia Address [address] [place] [address] Care Team Providers Care Clinical Dermatologist Name Role Phone Wilfredo Vargas Primary Care Provider UnavailRea Ordonez Unavailable [phone] Allergies Allergen (clinical drug ingredient) Drug/Non Drug Allergy documented on EMR Reaction Allergy Type Onset Date Status oxycodone OxyCONTIN Unknown Drug Allergy Active Results Component Value Reference Range Notes X ray : Foot, left 3V Reviewed date:06/14/2023 09:59:37 AM Interpretation:See Examination above Performing Lab: Notes/Report: See Examination above Reason For Referral No Information Medications Medication SIG (Take, Route, Frequency, Duration) Notes Start Date End Date Status Metoprolol Succinate 25 MG 1 capsule Ora lly twice a day for 30 days Active tylenol 1 tab Oral for 14 days PRN Active oxyBUTYnin Chloride 5 MG 1 tablet Orally Twice a day for 30 day(s) Not-Taking Lasix 40 MG 1 tablet Orally Once a day for 30 day(s) Active potassium 1 tab Oral for 14 days 20MEQ Active Terazosin HCl 10 MG 1 capsule at bedtime Orally Once a day for 30 day(s) Active Simvastatin 10 MG 1 tablet in the evening Orally Once a day for 30 day(s) Active Aspirin 81 MG 1 tablet Orally Once a day for 30 day(s) Active Warfarin Sodium 5 MG 1 tablet Orally Onc e a day for 30 day(s) Active Breo Ellipta 100-25 MCG/INH 1 puff Inhalation Once a day Active traZODone HCl 100 MG 1 tablet at bedtime Orally Once a day for 30 day(s) Active Hydrocortisone 2.5 % 1 application Externally Twice a day for 30 days Unknown Lisinopril 2.5 MG 1 tablet Orally Once a day Active Immunizations Vaccine Route Administration Date Status Comme nts COVID-19 Pfizer BioNTech Vaccine Unknown 07/31/2020 Administered First Dose: 07/08/2020 Influenza Unknown 01/06/2022 Administered Social History Tobacco Use: Social History Observation [...] Are you an other tobacco user? No Problems Problem Type SNOMED Code ICD Code Onset Dates Problem Status W/U Status Risk Notes Problem Acquired hammer toe of right foot (7035283461343410) Other hammer toe(s) (acquired), right foot (M20.41) Active confirmed Problem Acquired hammer toe of left foot (8996849660748781) Other hammer toe(s) (acquired), left foot (M20.42) Active confirmed Decision for Surgery (4) Problem Plantar wart (44768246) Plantar wart (B07.0) Active confirmed Problem Ulcer of toe (342524620) Non-pressure chronic ulcer of other part of left foot limited to breakdown of skin (L97.521) Active confirmed Problem Ulcer of toe (868340634) Non-pressure chronic ulcer of other part of right foot limited to breakdown of skin (L97.511) Active confirmed Problem Acquired hammer toe of right foot (1630717116856983) Hammer toe of right foot (M20.41) Active confirmed Improvement Problem Acquired hammer toe of left foot (8174820627849752) Hammer toe of left foot (M20.42) Active confirmed Improvement Problem Neuropathy (285932858) Neuropathy (G62.9) Active confirmed Problem Acquired deformity of right foot (34670723695311002) PlantarFlexion of metatarsal of right foot (M21.6X1) Active confirmed Problem Acquired deformity of left foot (49690689522054648) PlantarFlexion of metatarsal of left foot (M21.6X2) Active confirmed Problem 15168782137219713 Skin ulcer of toe of left foot, limited to breakdown of skin (L97.521) Active confirmed Vital Signs Blood pressure diastolic 68 mm Hg 11/15/2023 Height 5 ft 10 in in 03/16/2024 Blood pressure systolic 120 mm Hg 11/15/2023 Weight 250 lbs 03/16/2024 BMI 35.87 kg/m2 03/16/2024 Procedures Procedure Date Ordered Date Performed Result Body Sit e 80317-TQPPIOQ NAIL, 6 OR MORE 06/14/2023 N/A 23422-Aprx Destruction, 1-06/14/2023 N/A 59534-LNBNQFP NAIL, 6 OR MORE 09/27/2023 N/A 19721-Cyym Destruction, 1-14 09/27/2023 N/A 09913 - Tenotomy, open flexor 11/08/2023 N/A 19606-IJLCCSU NAIL, 6 OR MORE 03/16/2024 N/A 61128- Debride <25 sq cm 03/16/2024 N/A Encounters Encounter Location Date Provider Diagnosis [address] [address] 06/14/2023 Rea Black Tinea unguium B35.1 ; Plantar wart B07.0 ; Pain in right toe(s) M79.674 ; Pain in right foot M79.671 ; Pain in left toe(s) M79.675 ; Other hammer toe(s) (acquired), left foot M20.42 ; Pain in left foot M79.672 ; Pain in left ankle and joints of left foot M25.572 ; Bursitis of intermetatarsal bursa of left foot M77.52 ; Metatarsalgia, left foot M77.42 and Sesamoiditis of left foot M25.[address] [address] 09/27/2023 Rea Black Plantar wart B07.0 ; Other hammer toe(s) (acquired), left foot M20.42 ; Tinea unguium B35.1 ; Pain in right toe(s) M79.674 ; Pain in right foot M79.671 ; Pain in left toe(s) M79.675 ; Pain in left foot M79.672 and Pain in left ankle and joints of left foot M25.572 [facility] [address] [address] 11/08/2023 Rea Black Hammer toe of left f oot M20.[address] [address] 11/15/2023 Rea Black Hammer toe of left f oot M20.42 and Allergic dermatitis L23.[address] [facility] [address] 03/16/2024 Rea Black Plantar wart B07.0 ; Other hammer toe(s) (acquired), left foot M20.42 ; Tinea unguium B35.1 ; Pain in right toe(s) M79.674 ; Pain in left toe(s) M79.675 and Skin ulcer of toe of left foot, limited to breakdown of skin L97.521 Assessments Encounter Date Diagnosis (ICD Code) Assessment Notes Treatment Notes Treatment Clinical Notes Section Notes 06/14/2023 Tinea unguium (ICD-10 - B35.1) 09/27/2023 Other hammer toe(s) (acquired), left foot (ICD-10 - M20.42) Decision for Surgery (4) 09/27/2023 Plantar wart (ICD-10 - B07.0) 11/08/2023 Hammer toe of left foot (ICD-10 - M20.42) 11/15/2023 Hammer toe of left foot (ICD-10 - M20.42) Improvement 11/15/2023 Allergic dermatitis (ICD-10 - L23.9) 03/16/2024 Other hammer toe(s) (acquired), left foot (ICD-10 - M20.42) 03/16/2024 Plantar wart (ICD-10 - B07.0) 03/16/2024 Tinea unguium (ICD-10 - B35.1) 09/27/2023 Tinea unguium (ICD-10 - B35.1) 06/14/2023 Pain in right toe(s) (ICD-10 - M79.674) 06/14/2023 Plantar wart (ICD-10 - B07.0) 06/14/2023 Pain in right foot (ICD-10 - M79.671) 09/27/2023 Pain in right toe(s) (ICD-10 - M79.674) 03/16/2024 Pain in right toe(s) (ICD-10 - M79.674) 03/16/2024 Pain in left toe(s) (ICD-10 - M79.675) 09/27/2023 Pain in right foot (ICD-10 - M79.671) 06/14/2023 Pain in left toe(s) (ICD-10 - M79.675) 06/14/2023 Other hammer toe(s) (acquired), left foot (ICD-10 - M20.42) 09/27/2023 Pain in left toe(s) (ICD-10 - M79.675) 06/14/2023 Pain in left foot (ICD-10 - M79.672) 09/27/2023 Pain in left foot (ICD-10 - M79.672) 03/16/2024 Skin ulcer of toe of left foot, limited to breakdown of skin (ICD-10 - L97.521) 06/14/2023 Pain in left ankle and joints of left foot (ICD-10 - M25.572) 09/27/2023 Pain in left ankle and joints of left foot (ICD-10 - M25.572) 06/14/2023 Bursitis of intermetatarsal bursa of left foot (ICD-10 - M77.52) 06/14/2023 Metatarsalgia, left foot (ICD-10 - M77.42) 06/14/2023 Sesamoiditis of left foot (ICD-10 - M25.872) Plan Of Treatment Pending Test Test Name Order Date 24342-GYOOSKZ NAIL, 6 OR MORE 12/26/2020 54180-KWXFEMQ NAIL, 6 OR MORE 03/31/2021 32528-MVCBUGC NAIL, 6 OR MORE 07/10/2021 88819-GOXSVRS NAIL, 6 OR MORE 10/09/2021 28355-PTUEDSI NAIL, 6 OR MORE 01/15/2022 95848-KTAOIOA NAIL, 6 OR MORE 05/07/2022 15248-GTNMCQS NAIL, 6 OR MORE 08/10/2022 20144-QCWLZSZ NAIL, 6 OR MORE 11/16/2022 65289-OQNCJCN NAIL, 6 OR MORE 03/01/2023 93895-OHXIGFX NAIL, 6 OR MORE 06/14/2023 01122-GBPRPEP NAIL, 6 OR MORE 09/27/2023 86662-ZAGZITG NAIL, 6 OR MORE 03/16/2024 12651-Dgxq Destruction, 1-14 09/27/2023 11793-Xihk Destruction, 1-14 06/14/2023 94639-Jevm Destruction, 1-14 03/01/2023 23259-Zgjt Destruction, 1-14 11/16/2022 87126-Cman Destruction, 1-14 08/10/2022 35060- Debride <25 sq cm 12/26/2020 77322- Debride <25 sq cm 08/10/2022 67558- Debride <25 sq cm 05/07/2022 43489- Debride <25 sq cm 01/15/2022 84391- Debride <25 sq cm 10/09/2021 82851- Debride <25 sq cm 07/10/2021 17111- Debride <25 sq cm 03/31/2021 36330- Debride <25 sq cm 03/16/2024 83142 - Tenotomy, open flexor 11/08/2023 Next Appt Details Provider Name:Rea Ferrara , 06/22/2024 09:15:00 AM, [address] [facility], [place], [address], Insurance Providers Payer Name Payer Address Payer Phone Subscriber Number Group Number Insured Name Patient Relationship to Insured Coverage Start Date Coverage End Date Medicare National Govt [facility] [address] [place] [address] [id number] Eh Turk Self - patient is the insured [employer] [address] [place] [address] [phone] [id number] Eh Turk Self - patient is the insured for Life [address] [place] [address] [id number] BurkeEh rendon Self - patient is the insured Medical (General) History Medical History History ICD Code osteoarthritis Prostate cancer High blood pressure Measles Mumps Chicken pox Replacement Heart Valves Bone implants/screws Surgical History Surgery Date(Month/Year) knee replacement 10/09/2004 heart valve replacement 04/14/2017 pacemaker 05/14/2023 Hospitalization History Reason Date(Month/Year) [facility] [place] - pneumonia 06/29-07/03/22
--- OUTSIDE RECORDS SUMMARY | 2024-03-22 19:06 | XMS_ITS ---
Author Organization [facility] Address [address] [place] [address] Care Team Providers Care Iuss Acoustic Analyst Name Role Phone REGINALDO RUIZ Primary Care Provider LORIN COLVIN Unavailable [phone] ALLERGIES Allergen (clinical drug ingredient) Drug/Non Drug Allergy documented on EMR Reaction Allergy Type Onset Date Status oxycodone Oxycodone HCl Unknown Drug Allergy Act marline REASON FOR VISIT Pt seen in office for f/u visit. MEDICATIONS Medication SIG (Take, Route, Frequency, Duration) Notes Start Date End Date Status Breo Ellipta 200-25 MCG/ACT 1 puff Inhal ation Once a day Active traZODone HCl 100 MG 1 tablet at bedtime Orally Once a day Active Ipratropium [place] 0.03 % 2 sprays in e ach nostril Nasally Twice a day for 30 day(s) Active Potassium Chloride 20 MEQ 1 packet with food Orally Once a day for 30 day(s) Active Aspirin 81 81 MG 1 tablet Orally Once a day for 30 day(s) Active Coumadin 2.5 MG 1 tablet Orally 2-3 tablets depending on inr for 90 Active Lisinopril 2.5 MG 1 tablet Orally Once a day Active Warfarin Sodium 2.5 MG TAKE 2-3 TABLETS BY MOUTH DAILY DEPENDING ON INR for 90 Active Simvastatin 10 MG TAKE 1 TABLET BY PHILIP TH EVERY DAY IN THE EVENING for 90 Active Metoprolol Succinate 25 MG 1 capsule Ora lly Once a day Active Furosemide 40 MG 1 tablet Orally Twic e a day for 30 day(s) Active Terazosin [...] Notes: quit 1967 VITAL SIGNS Heart Rate 60 /min 01/10/2024 Blood pressure systolic 132 mm Hg 01/10/20 24 Blood pressure diastolic 62 mm Hg 024 Weight 261 lbs 01/10/2024 BMI 40.87 kg/m2 01/10/2024 Height 67 in 01/10/2024 Oximetry 96 % 01/10/2024 Encounters Encounter Location Date Provider Diagnosis [facility] [address] [facility] [address] [place] [address] 01/10/2024 LORIN COLVIN Chronic systolic hea rt failure I50.22 ; Asthma, unspecified asthma severity, unspecified whether complicated, unspecified whether persistent J45.909 ; Depression, unspecified depression type F32.9 ; Unspecified atrial fibrillation I48.91 ; Morbid obesity E66.01 ; Cardiomyopathy, unspecified type I42.9 and Chronic anticoagulation Z79.01 ASSESSMENTS Encounter Date Diagnosis Assessment Notes Treatment Notes Treatment Clinical Notes Section Notes 01/10/2024 Chronic systolic heart failure (ICD-10 - I50.22) Acute Concerns/Problem List: 01/10/2024 Pt presents for CCM No acute concerns today Labs reviewed Status post permanent pacemaker placement, left anterior chest Chronic conditions otherwise stable *DNR Reviewed with patient the importance of [...] blurry vision, dizziness, chest pain or pressure. Of note, some information is being carried forward from prior records for informational purposes only and is being cited so that efficiency, safety and quality of the patient's care is not compromised This note was prepared using voice recognition software and direct typing Please excuse inadvertent minilab operator or typing errors, or uncorrected word substitutions Although every attempt has been made by the provider to proofread this document, occasional misspellings and typographical errors may still be present Due to the previous pandemic, and the use of personal protective equipment (PPE) This may decrease voice recognition accuracy Inadvertent minilab operator errors may occur 01/10/2024 Asthma, unspecified asthma severity, unspecified whether complicated, unspecified whether persistent (ICD-10 - J45.909) Acute Concerns/Problem List: 01/10/2024 Pt presents for CCM No acute concerns today Labs reviewed Status post permanent pacemaker placement, left anterior chest Chronic conditions otherwise stable *DNR Reviewed with patient the importance of [...] blurry vision, dizziness, chest pain or pressure. Of note, some information is being carried forward from prior records for informational purposes only and is being cited so that efficiency, safety and quality of the patient's care is not compromised This note was prepared using voice recognition software and direct typing Please excuse inadvertent minilab operator or typing errors, or uncorrected word substitutions Although every attempt has been made by the provider to proofread this document, occasional misspellings and typographical errors may still be present Due to the previous pandemic, and the use of personal protective equipment (PPE) This may decrease voice recognition accuracy Inadvertent minilab operator errors may occur 01/10/2024 Depression, unspecified depression type (ICD-10 - F32.9) Acute Concerns/Problem List: 01/10/2024 Pt presents for CCM No acute concerns today Labs reviewed Status post permanent pacemaker placement, left anterior chest Chronic conditions otherwise stable *DNR Reviewed with patient the importance of [...] blurry vision, dizziness, chest pain or pressure. Of note, some information is being carried forward from prior records for informational purposes only and is being cited so that efficiency, safety and quality of the patient's care is not compromised This note was prepared using voice recognition software and direct typing Please excuse inadvertent minilab operator or typing errors, or uncorrected word substitutions Although every attempt has been made by the provider to proofread this document, occasional misspellings and typographical errors may still be present Due to the previous pandemic, and the use of personal protective equipment (PPE) This may decrease voice recognition accuracy Inadvertent minilab operator errors may occur 01/10/2024 Unspecified atrial fibrillation (ICD-10 - I48.91) Acute Concerns/Problem List: 01/10/2024 Pt presents for CCM No acute concerns today Labs reviewed Status post permanent pacemaker placement, left anterior chest Chronic conditions otherwise stable *DNR Reviewed with patient the importance of [...] blurry vision, dizziness, chest pain or pressure. Of note, some information is being carried forward from prior records for informational purposes only and is being cited so that efficiency, safety and quality of the patient's care is not compromised This note was prepared using voice recognition software and direct typing Please excuse inadvertent minilab operator or typing errors, or uncorrected word substitutions Although every attempt has been made by the provider to proofread this document, occasional misspellings and typographical errors may still be present Due to the previous pandemic, and the use of personal protective equipment (PPE) This may decrease voice recognition accuracy Inadvertent minilab operator errors may occur 01/10/2024 Morbid obesity (ICD-10 - E66.01) Acute Concerns/Problem List: 01/10/2024 Pt presents for CCM No acute concerns today Labs reviewed Status post permanent pacemaker placement, left anterior chest Chronic conditions otherwise stable *DNR Reviewed with patient the importance of [...] blurry vision, dizziness, chest pain or pressure. Of note, some information is being carried forward from prior records for informational purposes only and is being cited so that efficiency, safety and quality of the patient's care is not compromised This note was prepared using voice recognition software and direct typing Please excuse inadvertent minilab operator or typing errors, or uncorrected word substitutions Although every attempt has been made by the provider to proofread this document, occasional misspellings and typographical errors may still be present Due to the previous pandemic, and the use of personal protective equipment (PPE) This may decrease voice recognition accuracy Inadvertent minilab operator errors may occur 01/10/2024 Cardiomyopathy, unspecified type (ICD-10 - I42.9) Acute Concerns/Problem List: 01/10/2024 Pt presents for CCM No acute concerns today Labs reviewed Status post permanent pacemaker placement, left anterior chest Chronic conditions otherwise stable *DNR Reviewed with patient the importance of [...] blurry vision, dizziness, chest pain or pressure. Of note, some information is being carried forward from prior records for informational purposes only and is being cited so that efficiency, safety and quality of the patient's care is not compromised This note was prepared using voice recognition software and direct typing Please excuse inadvertent minilab operator or typing errors, or uncorrected word substitutions Although every attempt has been made by the provider to proofread this document, occasional misspellings and typographical errors may still be present Due to the previous pandemic, and the use of personal protective equipment (PPE) This may decrease voice recognition accuracy Inadvertent minilab operator errors may occur 01/10/2024 Chronic anticoagulation (ICD-10 - Z79.01) Acute Concerns/Problem List: 01/10/2024 Pt presents for CCM No acute concerns today Labs reviewed Status post permanent pacemaker placement, left anterior chest Chronic conditions otherwise stable *DNR Reviewed with patient the importance of [...] blurry vision, dizziness, chest pain or pressure. Of note, some information is being carried forward from prior records for informational purposes only and is being cited so that efficiency, safety and quality of the patient's care is not compromised This note was prepared using voice recognition software and direct typing Please excuse inadvertent minilab operator or typing errors, or uncorrected word substitutions Although every attempt has been made by the provider to proofread this document, occasional misspellings and typographical errors may still be present Due to the previous pandemic, and the use of personal protective equipment (PPE) This may decrease voice recognition accuracy Inadvertent minilab operator errors may occur PLAN OF TREATMENT Next Appt Details Provider Name:LORIN COLVIN, 05/11/2024 09:15:00 AM, [address] [place] [address], [facility] [address], [place], [address], Progress Notes * KAMAR LEE CDOB:1934 (88 yo M)Acc No.[id number]:01/10/2024 Progress Notes Patient:??KAMAR LEE Provider:??LORIN COLVIN NP :1935?Age:88 Y?Sex:Ma le Date:01/10/2024 Address:[address] [place] [address] [id number] Pcp:REGINALDO RUIZ Subjective: * Chief Complaints: * ?1. Pt seen in office f or f/u visit.. * HPI: ?Constitutional:? Patient is here for Chronic Disease Management follow-up visit ?Patient seen and examined. ? Full past medical history, social history, family history, ?allergies and current medications were reviewed and updated. ?Acute Concerns/Problem List: ?01/10/2024 ?No acute concerns today ?Labs reviewed from August ?Past medical history significant for chronic atrial fibrillation, ?was rate controlled with metoprolol ?Chronic anticoagulation with warfarin ?Chronic diastolic heart failure, mitral valve replacement, tricuspid ring angioplasty, ? 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 ?Lisinopril 2.5mg also started 05/2023. ?Recent echocardiogram at the end of March worsening EF, continues declining ?to be started on entresto ?followed by [facility] ?Pt has been on coumadin/warfarin since 2005 ?[facility] ?Follows neurologist r/t ?Alex- Dr. Ellington in [place] ?Still reporting vivid dreams and tremors, on Trazodone 100mg at bedtime. ?SOB- seen [facility] [employer] for PFTs and ? s/p hospitalization in June and states he passed all the tests. ?History of prostate cancer, s/p radiation tx 2017 ?Reports his urinary symptoms had been better on oxybutynin and terazosin, ?follows with urologist regularly. ?He reports compliance with medications ?Exercise: 5 days a week w/ resitance stationary cycling 30 minutes a day. ?MOLST, HCP IN PLACE ?*DNR ?Hospitalization hx- ?June 2022- PNA, [facility] 4 days ?IV Abx, d/c home. Recommended to see Dr. Russell. ?Comprehensive labs, 08/2023 ?Electrolytes renal function LFTs are stable ?CBC is stable ?Total cholesterol 139, LDL 76, HDL 45, triglycerides 91 ?TSH 4.16 ?UA unremarkable ?Vitamin D 27 ?normal T4 ?Health Maintenance. ?Patient has been vaccinated for COVID-19. x 3 MRN vax ?flu 2023: ?rsv: discussed vax, to get at pharm ?cscope- 2016 ?DXA- defers ?shingles- 11/2017 ?PNA- states got a couple, cannot recall ?tetanus- 2020. * ROS:?Review of systems otherwise negative unless stated in HPI. * Medical History:??Hypertensi on, Hypercholesterolemia, Constipation, Asthma, BPH, Chronic pain, A fib, Transient ischemic attack. * Surgical History:??2010 wojc [place] , open heart 04/14/2017, heart valve replacement , Pacemaker dr. Tan @ [facility] . * Hospitalization/Major Diagno stic Procedure:??Denies Past Hospitalization. * Family History:??1 brother(s ) , 2 sister(s) . 2 son(s) . .?? * Social History:?Tobacco Use:??Tobacco Use/Smoking??Are you a??former smoker.?quit 1968. * Medications:??Taking Lisinop ril 2.5 MG Tablet 1 tablet Orally Once a day , Taking Metoprolol Succinate 25 MG Capsule ER 24 Hour Sprinkle 1 capsule Orally Once a day , Taking Breo Ellipta 200-25 MCG/ACT Aerosol Powder Breath Activated 1 puff Inhalation Once a day , Taking Ipratropium [place] 0.03 % Solution 2 sprays in each [...] patient * Allergies:??Oxycodone HCl. Objective: * Vitals:??HR: 60 /min, BP: 13 2/62 mm Hg, Wt: 261 lbs, BMI: 40.87 Index, Ht: 67 in, Oxygen sat %: 96 %. * Examination: ?General Examination: ?GENERAL APPEARANCE:??in [...] extremities, sensory exam intact.? Assessment: * Assessment: 1.??Chronic systolic heart f ailure - I50.22??2.??Asthma, unspecified asthma severity, unspecified whether complicated, unspecified whether persistent - J45.909??3.??Depression, unspecified depression type - F32.9??4.??Unspecified atrial fibrillation - I48.91??5.??Morbid obesity - E66.01??6.??Cardiomyopathy, unspecified type - I42.9??7.??Chronic anticoagulation - Z79.01?? Acute Concerns/Problem List: 01/10/2024 Pt presents for CCM No acute concerns today Labs reviewed Status post permanent pacemaker placement, left anterior chest Chronic conditions otherwise stable *DNR Reviewed with patient the importance of [...] blurry vision, dizziness, chest pain or pressure. Of note, some information is being carried forward from prior records for informational purposes only and is being cited so that efficiency, safety and quality of the patient's care is not compromised This note was prepared using voice recognition software and direct typing Please excuse inadvertent minilab operator or typing errors, or uncorrected word substitutions Although every attempt has been made by the provider to proofread this document, occasional misspellings and typographical errors may still be present Due to the previous pandemic, and the use of personal protective equipment (PPE) This may decrease voice recognition accuracy Inadvertent minilab operator errors may occur. Plan: * Treatment: * Images: Billing Information: * Visit Code:?? [id number] Office Visit, Est Pt., Level 4. * Procedure Codes:?? Care Plan Details* * Sign off status: Completed true * Provider:??LORIN COLVIN NP Date:??12/13 History and Physical Notes * HPI (History of Present Illness) Category Sub-Category Detail Notes Category Not es Constitutional Patient is here for Chronic Disease Management follow-up visit Patient seen and examined. Full past medical history, social history, family history, allergies and current medications were reviewed and updated. Acute Concerns/Problem List: 01/10/2024 No acute concerns today Labs reviewed from August Past medical history significant for chronic atrial fibrillation, was rate controlled with metoprolol Chronic anticoagulation with warfarin Chronic diastolic heart failure, mitral valve replacement, tricuspid ring angioplasty, nonischemic cardiomyopathy, orthostatic hypotension, hypertension, hyperlipidemia, nonrheumatic aortic valve stenosis (INR managed by [facility]), INR Prediabetic A1c of 5.7 age appropriate afib, severe mitral regurgitation and status post mitral valve replacement, some vent dysfunction symptomatic bradycardia, 3 heart av block s/p PPM placement @ [facility] 05/2023, left ant chest wall Metoprolol , 25mg extended release restarted by reed cleaner. Lisinopril 2.5mg also started 05/2023. Recent echocardiogram at the end of March worsening EF, continues declining to be started on entresto followed by [facility] Marta Pt has been on coumadin/warfarin since 2005 INR managed by [facility] Follows neurologist r/t ?Parkinsons- Dr. Ellington in [place] Still reporting vivid dreams and tremors, on Trazodone 100mg at bedtime. SOB- seen [facility] [employer] for PFTs and s/p hospitalization in June and states he passed all the tests. History of prostate cancer, s/p radiation tx 2017 Reports his urinary symptoms had been better on oxybutynin and terazosin, follows with urologist regularly. He reports compliance with medications Exercise: 5 days a week w/ resitance stationary cycling 30 minutes a day. MOLST, HCP IN PLACE *DNR Hospitalization hx- June 2022- PNA, [facility] 4 days IV Abx, d/c home. Recommended to see Dr. Russell. Comprehensive labs, 08/2023 Electrolytes renal function LFTs are stable CBC is stable Total cholesterol 139, LDL 76, HDL 45, triglycerides 91 TSH 4.16 UA unremarkable Vitamin D 27 normal T4 Health Maintenance. Patient has been vaccinated for COVID-19. x 3 MRN vax flu 2023: rsv: discussed vax, to get at pharm cscope- 2017 DXA- defers shingles- 11/2017 PNA- states got a couple, cannot recall tetanus- 2020 Examination Category Sub-Category Detail Notes Category Not [...]
--- OUTSIDE RECORDS SUMMARY | 2024-03-22 19:07 | XMS_ITS | Data Portability ---
Author Organization [facility], [address] Address [address] [place] [address] Care Team Providers Care Mortgage Loan Officer Originator Name Role Phone REGINALDO RUIZ Primary Care Provider Assessment No assessment recorded. Plan of Treatment Reminders Order Date Submit Date Provider Last Modified By Organization Details Last Modified Time Details Appointments None recorded. Lab None recorded. Referral orthopedic surgeon referral 2022 023 [email or web address] Not available 08:02:34 Procedures None recorded. Surgeries None recorded. Imaging XR, wrist, 3 or more view 2022 023 [facility], [address] [place], [address], 18:35:49 Medication Orders None recorded. Patient TargetsNo targets recorded. Patient InstructionsNo instructions recorded. Reason for Referral Orthopedic Surgeon Referral for Pain of left wrist Referring Physician: Devonte Samson, Urgent Care, Encounter Date: 10/25/2022 Results Created Date Observation Date Name Description Value Unit Range Abnormal Flag Note LastModifiedBy Organization Detail LastModifiedTime 10/26/19 23 10/25/2022 XR, wrist , 3 or more view No observ ation record ed. [email or web address] [facility] [address] [place], [address], 10/25/2022 18:58:08 Result Notes None recorded. Problems Name Problem SNOMED Code Status Onset Date Resolution Date Notes Provider Name and Address Organization Details Recorded Time Hypertensive disorder 00577772 Active 2022 [facility] 17:10:56 Atrial fibrillation 19794707 Active 2022 Mariaa Olsonfeliberto crawley PA - [facility] 3 17:11:02 Hypercholestero lemia 49964239 Active 2022 Mariaa Gamboa misbah PA - [facility] 3 17:11:36 Problem Notes None recorded. Procedures Surgical History None recorded. Imaging Results Imaging Date Name Status LastModified by Organiz ation Details LastModified Time 10/25/2022 XR, wrist, 3 or more view completed [email or web address] [address] [place], [address], 10/25/2022 18:58:08 Procedure Notes None recorded. Medical Equipment None Reported. Medications Name Sig Start Date Stop Date Status Note LastModified by Organization Details LastModified Time furosemide 40 mg tablet TAKE 1 TABLET BY MOUTH TWICE A DAY active Not Available Not Available No t Available doxycycline hyclate 100 mg capsule TAKE 1 CAPSULE BY MOUTH TWICE A DAY 10/25 completed Not Available Not Available Not Available trazodone 50 mg tablet TAKE 2 TABLETS BY MOUTH EVERY DAY AT BEDTIME 10/25 completed Not Available Not Available Not Available simvastatin 10 mg tablet TAKE 1 TABLET BY MOUTH EVERY DAY IN THE EVENING active Not Available Not Available No t Available warfarin 2.5 mg tablet TAKE 2-3 TABLETS BY MOUTH EVERY DAY DEPENDING ON INR active Not Available Not Available No t Available tramadol 50 mg tablet TAKE 1 TABLET BY MOUTH TWICE A DAY NEEDED FOR 30 DAYS 10/25 completed Not Available Not Available Not Available trazodone 100 mg tablet TAKE 1 TABLET BY MOUTH EVERY DAY AT BEDTIME FOR 90 DAYS active Not Available Not Available No t Available trazodone 150 mg tablet TAKE 1 TABLET BY MOUTH EVERY DAY AT BEDTIME FOR 90 DAYS 10/25 completed Not Available Not Available Not Available cefuroxime axetil 500 mg tablet TAKE 1 TABLET BY MOUTH EVERY 12 HOURS 10/25 completed Not Available Not Available Not Available albuterol sulfate HFA 90 mcg/actuati on aerosol inhaler INHALE 2 PUFFS EVERY 4 TO 6 HOURS NEEDED FOR WHEEZE active Not Available Not Available No t Available terazosin 10 mg capsule TAKE 1 CAPSULE BY MOUTH EVERYDAY AT BEDTIME active Not Available Not Available No t Available metoprolol tartrate 25 mg tablet TAKE 1 TABLET BY MOUTH TWICE A DAY active Not Available Not Available No t Available trospium 20 mg tablet TAKE 1 TABLET BY MOUTH TWICE A DAY 10/25 completed Not Available Not Available Not Available potassium chloride ER 20 mEq tablet,exte nded release TAKE 1 TABLET BY MOUTH EVERY DAY active Not Available Not Available No t Available Breo Ellipta 200 mcg-25 mcg/dose powder for inhalation INHALE 1 PUFF BY MOUTH DIALY active Not Available Not Available No t Available Vitals Date Recorded Body height Body mass index (BMI) Body weight Respiratory rate Body temperature Oxygen saturation Oxygen saturation in Arterial blood by Pulse oximetry Heart rate Systolic blood pressure Diastolic blood pressure Provider Name and Address Organization Details Last Updated DateTime 3 177.8 cm 35.7 kg/m2 655744. 5 g 18 /min 98.3 [degF] 94 % 94 % 77 /min 152 mm[Hg] 86 mm[Hg] Mariaa Mccauley [facility] 17:19:55 Social History Question Answer Notes LastModified by Organizat ion Details LastModified Time Tobacco Smoking Status Never Smoker [facility] 10/25/2022 17:11:58 What Is Your Level Of Alcohol Consumption? None Information not available 10/25/2022 Do You Use Any Illicit Or Recreational Drugs? No Information not available 10/25/2022 Have You Recently Traveled Abroad? No Information not available 10/25/2022 Do You Or Have You Ever Used Any Other Forms Of Tobacco Or Nicotine? No Information not available 10/25/2022 Sex: Unknown Functional Status None recorded. Mental Status None recorded. Family History Relationship Description Onset Age of this Age Resolved Age Notes LastModified by Organization Details LastModified Time Father No current problems or disability [email or web address] Not available 10/25 17:11:46 Mother No current problems or disability [email or web address] Not available 10/25 17:11:46 Medical History No medical history recorded. Immunizations Vaccine Type Date Status Note Provider Nam e and Address Organization Details Recorded Time Influenza, recombinant, quadrivalent, PF 0 completed Mariaa Monfette null, PA - [facility] 10/25/2022 17:08:30 zoster recombinant 8 completed Mariaa Monfette null, PA - [facility] 10/25/2022 17:08:30 Influenza, high-dose, quadrivalent, PF 2 completed Mariaa Monfette null, PA - [facility] 10/25/2022 17:08:30 COVID-19, mRNA, LNP-S, PF, 30 mcg/0.3 mL dose 1 completed Mariaa Monfette null, PA - [facility] 10/25/2022 17:08:30 COVID-19, mRNA, LNP-S, PF, 30 mcg/0.3 mL dose 1 completed Mariaa Monfette null, PA - [facility] 10/25/2022 17:08:30 Influenza, high-dose, trivalent, PF 7 completed Mariaa Monfette null, PA - [facility] 10/25/2022 17:08:30 Influenza, high-dose, trivalent, PF 6 completed Mariaa Monfette null, PA - [facility] 10/25/2022 17:08:30 Influenza, high-dose, trivalent, PF 8 completed Mariaa Monfette null, PA - [facility] 10/25/2022 17:08:30 Influenza, split virus, trivalent, preservative 1 completed Mariaa Monfette null, PA - [facility] 10/25/2022 17:08:30 Td (adult), 2 Lf tetanus toxoid, preservative free, adsorbed 1 completed Mariaa Monfette null, PA - [facility] 10/25/2022 17:08:30 Past Encounters Encounter ID Performer Location Encounter Start Date Encounter Closed Date Diagnosis/Indication Diagnosis SNOMED-CT Code Diagnosis ICD10 Code [id number] [address] [address] 09/14/2020 08:45:33 09/14/2020 09:53:20 [id number] [address] [address] [place] [address] 12/08/2018 16:28:25 12/08/2018 20:01:25 [id number] [address] [place] [address] 03/24/2017 14:05:08 03/24/2017 15:29:58 [id number] [address] [place] [address] 06/25/2017 09:40:54 06/25/2017 10:26:09 [id number] Devonte Samson [place] [address] [place] [address] 10/25/2022 16:58:22 10/25/2022 18:09:24 Pain of left wrist 4301715899 64756 M25.532 Health Concerns Section Related Observation LastModified by Organization Detai ls LastModified Time None Recorded Concern Status LastModified by Organization Details LastModified Time None Recorded Advance Directives Directive None Recorded Payers Encounter Date Sequence Insurance Name Policy Number Policy Dudley Covered Member ID Dudley Member ID Guarantor Name 03/24/2017 1 [place]: [facility] Eh C Burke [id number] Eh C Goodyear 03/24/2017 2 [facility] IN[facility]MNITY PLAN - UNICARE [id number] Eh C Goodyear [id number] Eh C Burke 06/25/2017 1 MEDICARE B-[place]: [facility] Eh C Burke [id number] Eh C Goodyear 06/25/2017 2 [facility] IN[facility] - UNICARE [id number] Eh C Burke [id number] Eh C Burke 12/08/2018 1 [place] [facility] Eh C Goodyear [id number] Eh C Goodyear 12/08/2018 2 [facility] INDEMNITY PL[facility] - UNICARE [id number] Eh C Goodyear [id number] Eh C Burke 09/14/2020 1 [place]: [facility] Eh C Goodyear [id number] Eh C Goodyear 09/14/2020 2 [facility] [id number] Eh C Burke [id number] Eh C Burke 10/25/2022 1 MEDICARE B-[place]: [facility] Eh C Burke [id number] Eh C Goodyear 10/25/2022 2 [facility] [id number] Eh C Burke [id number] Eh C Burke Notes Date Note Type Note Provider Name and Address Organization Details Recorded Time 10/25/2022 text/html 87 yo male c/o left wrist pain x1 month, no injury noted no h/o traumano swellingno rednessno rashno bruisingno numbnessno tinglingno weakness RHD not taking OTC meds because they affect his INR Devonte Samson, DO [address], [place], [address], [place] - [facility] 10/25/2022 18:05:28
--- OUTSIDE RECORDS SUMMARY | 2024-03-22 19:07 | XMS_ITS | Patient Health Record ---
Author Organization [facility] Address [address] [place] [address] Care Team Providers Care Red Cap Name Role Phone REGINALDO RUIZ Primary Care Provider LORIN COLVIN Unavailable [phone] ALLERGIES Allergen (clinical drug ingredient) Drug/Non Drug Allergy documented on EMR Reaction Allergy Type Onset Date Status oxycodone Oxycodone HCl Unknown Drug Allergy Act marline RESULTS Component Value Reference Range Notes CBC WITH AUTO DIFF Reviewed date:05/04/2023 03:27:24 PM Interpretation: Performing Lab: Notes/Report: WBC 6.7 4.8-10.8 x10-3/uL RBC 4.8 4.5-5.5 x10-6/uL HEMOGLOBIN 15.0 13.5-17.5 g/dL HEMATOCRIT 44.5 42-54 % MCV 93.5 79-98 fL MCH 31.5 27-32 pg MCHC 33.7 32-37 g/dL RDW 14.3 11-15 % PLT COUNT 168 130-400 x10-3/uL MEAN PLATELET VOLUME 11.7 7-11 fL NRBC % AUTO 0.0 <1 % NEUT % 74.4 LYMPH % 11.9 MONO % 10.7 EOS % 1.2 BASO % 1.5 IMMATURE GRANULOCYTES % 0.3 NRBC # AUTO 0.00 <0.1 x10-3/uL ABSOLUTE NEUT 4.95 1.5-7.0 x10-3/uL LYMPH # 0.79 1-5.0 x10-3/uL MONO # 0.71 0.2-1.0 x10-3/uL EOS # 0.08 0-0.5 x10-3/uL BASO # 0.10 0-0.2 x10-3/uL IMMATURE GRANULOCYTES # 0.02 0-0.03 x10-3/uL PT/INR Reviewed date:05/04/2023 03:29:43 PM Interpretation: Performing Lab: Notes/Report: PROTHROMBIN TIME 22.0 10.6-13.9 SEC INR 1.75 BASIC METABOLIC PANEL (BMP) Reviewed date:05/04/2023 03:29:43 PM Interpretation: Performing Lab: Notes/Report: GLUCOSE 90 70-100 mg/dL Reference range applicable to fasting specimens only BUN 16 5-25 mg/dL CREAT 0.70 0.7-1.3 mg/dL GLOMERULAR FILTRATION RATE 88 >60 This eGFR result was calculated using the CKD-EPI 2020 Creatinine Equation SODIUM 144 135-145 mEq/L POTASSIUM 3.8 3.5-5.5 mmol/L CHLORIDE 111 96-110 mmol/L CO2 25 21-32 mmol/L ANION GAP 8 3-11 CALCIUM 8.9 8.5-10.5 mg/dL POCT PT/INR Reviewed date:05/20/2023 10:13:12 AM Interpretation: Performing Lab: Notes/Report: Note Original Ordering Provider: DAIANA TAN MD [facility] [place] [address] [employer] Consultant - Keisha Lizama MD POCT PROTHROMBIN TIME 30.9 10.6-13.9 SEC POCT INR 2.70 Note Original Ordering Provider: DAIANA TAN MD [facility] [place] [address] [employer] Consultant - Keisha Lizama MD [facility] Reviewed date:08/31/2023 10:03:37 AM Interpretation: Performing Lab: Notes/Report: Note Original Orderi ng Provider: LORIN COLVIN SENIOR SECURITY ENGINEER GLUCOSE 98 70-100 mg/dL Reference range applicable to fasting specimens only BUN 16 5-25 mg/dL CREAT 0.85 0.7-1.3 mg/dL GLOMERULAR FILTRATION RATE 83 >60 This eGFR result was calculated using the CKD-EPI 2020 Creatinine Equation SODIUM 145 135-145 mEq/L POTASSIUM 4.1 3.5-5.5 mmol/L CHLORIDE 112 96-110 mmol/L CO2 24 21-32 mmol/L ANION GAP 9 3-11 CALCIUM 8.7 8.5-10.5 mg/dL TOTAL PROTEIN 6.6 6.0-8.0 G/dL ALBUMIN 3.6 3.2-5.0 G/dL BILI,TOTAL 0.9 0.0-1.4 mg/dL SGOT 22 10-42 U/L SGPT 22 10-60 U/L ALK PHOS 119 42-121 U/L CBC WITH AUTO DIFF Reviewed date:08/31/2023 09:35:06 AM Interpretation: Performing Lab: Notes/Report: WBC 6.4 4.8-10.8 x10-3/uL RBC 5.0 4.5-5.5 x10-6/uL HEMOGLOBIN 15.3 13.5-17.5 g/dL HEMATOCRIT 45.2 42-54 % MCV 90.9 79-98 fL MCH 30.8 27-32 pg MCHC 33.8 32-37 g/dL RDW 14.1 11-15 % PLT COUNT 185 130-400 x10-3/uL MEAN PLATELET VOLUME 11.0 7-11 fL NRBC % AUTO 0.0 <1 % NEUT % 70.3 LYMPH % 13.8 MONO % 10.7 EOS % 3.0 BASO % 1.7 IMMATURE GRANULOCYTES % 0.5 NRBC # AUTO 0.00 <0.1 x10-3/uL ABSOLUTE NEUT 4.47 1.5-7.0 x10-3/uL LYMPH # 0.88 1-5.0 x10-3/uL MONO # 0.68 0.2-1.0 x10-3/uL EOS # 0.19 0-0.5 x10-3/uL BASO # 0.11 0-0.2 x10-3/uL IMMATURE GRANULOCYTES # 0.03 0-0.03 x10-3/uL LIPID PROFILE Reviewed date:08/31/2023 10:03:37 AM Interpretation: Performing Lab: Notes/Report: CHOLESTEROL 139 0-200 mg/dL TRIGLYCERIDES 91 0-150 mg/dL VITAMIN D, 25-HYDROXY Reviewed date:08/31/2023 10:03:37 AM Interpretation: Performing Lab: Notes/Report: VITAMIN D, 25-HYDROXY 27 30-80 ng/mL TSH Reviewed date:08/31/2023 10:03:37 AM Interpretation: Performing Lab: Notes/Report: TSH 4.16 0.40-4.00 uIU/ml UA WITH CULTURE IF INDICATED Reviewed date:08/31/2023 10:20:45 AM Interpretation: Performing Lab: Notes/Report: GLUCOSE, (UA) NEGATIVE NEGATIVE mg/dL BILIRUBIN, URINE NEGATIVE NEGATIVE KETONE, URINE NEGATIVE NEGATIVE mg/dL SPECIFIC GRAVITY, URINE 1.011 1.003-1.030 BLOOD, URINE NEGATIVE NEGATIVE PH, URINE 5.5 5.0-8.0 PROTEIN, URINE NEGATIVE <= TRACE mg/dl UROBILINOGEN, URINE 0.2 0.2-1.0 E.U./dL NITRITE, URINE NEGATIVE NEGATIVE LEUKOCYTE ESTERASE, URINE NEGATIVE NEGATIVE BASIC METABOLIC PANEL (BMP) Reviewed date:11/16/2023 08:53:06 AM Interpretation: Performing Lab: Notes/Report: GLUCOSE 126 70-100 mg/dL Reference range applicable to fasting specimens only BUN 16 5-25 mg/dL CREAT 0.92 0.7-1.3 mg/dL GLOMERULAR FILTRATION RATE 80 >60 This eGFR result was calculated using the CKD-EPI 2020 Creatinine Equation SODIUM 141 135-145 mEq/L POTASSIUM 3.7 3.5-5.5 mmol/L CHLORIDE 110 96-110 mmol/L CO2 24 21-32 mmol/L ANION GAP 7 3-11 CALCIUM 8.3 8.5-10.5 mg/dL MAGNESIUM Reviewed date:11/16/2023 08:50:56 AM Interpretation: Performing Lab: Notes/Report: MAGNESIUM 2.1 1.9-2.6 mg/dL Note [facility] [address] [employer] Consultant - Keisha Lizama MD B-TYPE NATRIURETIC PEPTIDE Reviewed date:11/16/2023 08:50:56 AM Interpretation: Performing Lab: Notes/Report: Note Original Ordering Provider: DAIANA TAN MD [facility], a member of [address] [address] [employer] Consultant - Keisha Lizama MD B-TYPE NATRIURETIC PEPTIDE 51 <100 pg/mL Note Original Ordering Provider: DAIANA TAN MD [facility], a member of [address] [address] [employer] Consultant - Keisha Lizama MD REASON FOR REFERRAL No Information MEDICATIONS Medication SIG (Take, Route, Frequency, Duration) [...] puff Inhal ation Once a day Active Metoprolol Succinate 25 MG 1 capsule Ora lly Once a day Active traZODone HCl 100 MG 1 tablet at bedtime Orally Once a day Active Ipratropium [place] 0.03 % 2 sprays in e ach nostril Nasally Twice a day for 30 day(s) Active Potassium Chloride 20 MEQ 1 packet with food Orally Once a day for 30 day(s) Active Aspirin 81 81 MG 1 tablet Orally Once a day for 30 day(s) Active Furosemide 40 MG 1 tablet Orally Twic e a day for 30 day(s) Active Terazosin HCl 10 MG 1 capsule Orally Onc e a day for 30 day(s) Active IMMUNIZATIONS Vaccine Route Administration Date Status Comme nts influenza IM Intramuscular 01/07/2021 Administered Influenza, high dose seasonal IM Intramuscular 01/06/2023 Administered SOCIAL HISTORY Tobacco Use: Social History Observation Description Date Details (start date - stop date) Former Smoker NA - NA Sex Assigned At : Social History Observation Description Sex Assigned At Unknown Tobacco Use/Smoking Question Answer Notes Are you a former smoker Section Notes: quit 1967 quit 1967 quit 1967 quit 1967 quit 1967 quit 1967 quit 1967 quit 1967 quit 1967 quit 1967 quit 1967 quit 1967 quit 1967 quit 1967 PROBLEMS Problem Type ICD Code Onset Dates Problem Status W/U Status Risk SNOMED Code Notes Problem Vitamin D deficiency, unspecified (E55.9) Active confirmed 30716313 Problem Hyperlipidemia, unspecified (E78.5) Active confirmed Hyperlipidemia (96688853) Problem Transient cerebral ischemic attack, unspecified (G45.9) Active confirmed Transient ischemic attack (292692890) Problem Obstructive sleep apnea (adult) (pediatric) (G47.33) Active confirmed Obstructive sle ep apnea syndrome (disorder) (60712937) Problem Essential (primary) hypertension (I10) Active confirmed Essential hypertension (44205248) Problem Nonrheumatic mitral valve disorder, unspecified (I34.9) Active confirmed Mitral valve disorder (40065022) Problem Unspecified atrial fibrillation (I48.91) Active confirmed Atrial fibrillation (78817730) Problem 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) Active confirmed Acute combi isidro systolic and diastolic heart failure (117469953640785) Problem Epistaxis (R04.0) Active confirmed 2493 16808 Problem Encounter for general adult medical examination without abnormal findings (Z00.00) Active confirmed 905078680 Problem Morbid obesity (E66.01) Active confirmed 218801299 Problem Hyperlipidemia, unspecified hyperlipidemia type (E78.5) Active confirmed 66438124 Problem Depression, unspecified depression type (F32.9) Active confirmed Depressive disorder (disorder) (19810923) Problem Hypothyroidism, unspecified type (E03.9) Active confirmed 99878297 Problem Chronic anticoagulation (Z79.01) Active confirmed 394334030 Problem 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) Active confirmed Subclinical hypothyroidism (55016054) Problem Asthma, unspecified asthma severity, unspecified whether complicated, unspecified whether persistent (J45.909) Active confirmed Asthma without status asthmaticus (83461160) Problem Cardiomyopathy, unspecified type (I42.9) Active confirmed 89133489 Problem 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) Active confirmed Migraine with aura (2052393) Problem Chronic systolic heart failure (I50.22) Active confirmed 219192086 VITAL SIGNS Heart Rate 60 /min 01/10/2024 Oximetry 96 % 01/10/2024 Blood pressure diastolic 62 mm Hg 01/10/2024 Height 67 in 01/10/2024 Blood pressure systolic 132 mm Hg 01/10/2024 Weight 261 lbs 01/10/2024 BMI 40.87 kg/m2 01/10/2024 Encounters Encounter Location Date Provider Diagnosis [facility] [address] [address] 05/11/2023 LORIN COLVIN Asthma, unspecified asthma severity, unspecified whether complicated, unspecified whether persistent J45.909 ; Chronic systolic heart failure I50.22 ; Depression, unspecified depression type F32.9 ; Unspecified atrial fibrillation I48.91 ; Morbid obesity E66.01 ; Cardiomyopathy, unspecified type I42.9 ; Hyperlipidemia, unspecified hyperlipidemia type E78.5 ; Subclinical hypothyroidism E03.9 ; Vitamin D deficiency, unspecified E55.9 ; Hyperlipidemia, unspecified E78.5 and Hypothyroidism, unspecified type E03.9 [place] [address] 09/09/2023 [facility] Annual physical exam Z00.00 ; Encounter for screening for other disorder Z13.89 ; Encounter for screening for depression Z13.31 ; Chronic systolic heart failure I50.22 ; Asthma, unspecified asthma severity, unspecified whether complicated, unspecified whether persistent J45.909 ; Depression, unspecified depression type F32.9 ; Unspecified atrial fibrillation I48.91 ; Morbid obesity E66.01 ; Cardiomyopathy, unspecified type I42.9 and Chronic anticoagulation Z79.01 [place] [address] 01/10/2024 [facility] Chronic systolic hea rt failure I50.22 ; Asthma, unspecified asthma severity, unspecified whether complicated, unspecified whether persistent J45.909 ; Depression, unspecified depression type F32.9 ; Unspecified atrial fibrillation I48.91 ; Morbid obesity E66.01 ; Cardiomyopathy, unspecified type I42.9 and Chronic anticoagulation Z79.01 [place] [address] 03/17/2024 REGINALDO RUIZ ASSESSMENTS Encounter Date Diagnosis Assessment Notes Treatment Notes Treatment Clinical Notes Section Notes 05/11/2023 Asthma, unspecified asthma severity, unspecified whether complicated, unspecified whether persistent (ICD-10 - J45.909) Pt presents for Chronic disease management follow-up visit. #Umbilical hernia: continue to monitor. #Asthma: continue inhaler use as prescribed. 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 #Heart failure: *Likely needs PPM,Continue medications as prescribed. Follow up with cardiology. #Atrial fibrillation: Continue medications as prescribed. #Hypertension: Continue medications as prescribed. #Hyperlipidemia: Continue medications as prescribed. #History of prostate cancer, s/p radiation tx 2018: Continue medications as prescribed. Continue following up with urology. #Vivid dreams, tremors, migraine-like headaches, continue f/u with neuro , improving, continue following up with neurology. continue medications as prescribed. DNR Reviewed with patient the importance of medication [...] software and direct typing Please excuse inadvertent rotary drier or typing errors, or uncorrected word substitutions Although every attempt has been made by the provider to proofread this document, occasional misspellings and typographical errors may still be present Due to the previous pandemic, and the use of personal protective equipment (PPE) This may decrease voice recognition accuracy Inadvertent rotary drier errors may occur 09/09/2023 Encounter for screening [...] log exercise and discussed fitness Apps like [employer] which can help keep log off calories [...] software and direct typing Please excuse inadvertent rotary drier or typing errors, or uncorrected word substitutions Although every attempt has been made by the provider to proofread this document, occasional misspellings and typographical errors may still be present Due to the previous pandemic, and the use of personal protective equipment (PPE) This may decrease voice recognition accuracy Inadvertent rotary drier errors may occur 09/09/2023 Annual physical exam (ICD-10 - Z00.00) [...] log exercise and discussed fitness Apps like [employer] which can help keep log off calories [...] gave form for that as well as [place] order for life sustaining treatment. I screen [...] software and direct typing Please excuse inadvertent rotary drier or typing errors, or uncorrected word substitutions Although every attempt has been made by the provider to proofread this document, occasional misspellings and typographical errors may still be present Due to the previous pandemic, and the use of personal protective equipment (PPE) This may decrease voice recognition accuracy Inadvertent rotary drier errors may occur 01/10/2024 Chronic systolic heart failure (ICD-10 - [...] software and direct typing Please excuse inadvertent rotary drier or typing errors, or uncorrected word substitutions Although every attempt has been made by the provider to proofread this document, occasional misspellings and typographical errors may still be present Due to the previous pandemic, and the use of personal protective equipment (PPE) This may decrease voice recognition accuracy Inadvertent rotary drier errors may occur 01/10/2024 Asthma, unspecified asthma [...] software and direct typing Please excuse inadvertent rotary drier or typing errors, or uncorrected word substitutions Although every attempt has been made by the provider to proofread this document, occasional misspellings and typographical errors may still be present Due to the previous pandemic, and the use of personal protective equipment (PPE) This may decrease voice recognition accuracy Inadvertent rotary drier errors may occur 09/09/2023 Encounter for screening [...] log exercise and discussed fitness Apps like [employer] which can help keep log off calories [...] software and direct typing Please excuse inadvertent rotary drier or typing errors, or uncorrected word substitutions Although every attempt has been made by the provider to proofread this document, occasional misspellings and typographical errors may still be present Due to the previous pandemic, and the use of personal protective equipment (PPE) This may decrease voice recognition accuracy Inadvertent rotary drier errors may occur 05/11/2023 Chronic systolic heart failure (ICD-10 - I50.22) Pt presents for Chronic disease management follow-up visit. #Umbilical hernia: continue to monitor. #Asthma: continue inhaler use as prescribed. 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 #Heart failure: *Likely needs PPM,Continue medications as prescribed. Follow up with cardiology. #Atrial fibrillation: Continue medications as prescribed. #Hypertension: Continue medications as prescribed. #Hyperlipidemia: Continue medications as prescribed. #History of prostate cancer, s/p radiation tx 2018: Continue medications as prescribed. Continue following up with urology. #Vivid dreams, tremors, migraine-like headaches, continue f/u with neuro , improving, continue following up with neurology. continue medications as prescribed. DNR Reviewed with patient the importance of medication [...] software and direct typing Please excuse inadvertent rotary drier or typing errors, or uncorrected word substitutions Although every attempt has been made by the provider to proofread this document, occasional misspellings and typographical errors may still be present Due to the previous pandemic, and the use of personal protective equipment (PPE) This may decrease voice recognition accuracy Inadvertent rotary drier errors may occur 05/11/2023 Depression, unspecified depression type (ICD-10 - F32.9) Pt presents for Chronic disease management follow-up visit. #Umbilical hernia: continue to monitor. #Asthma: continue inhaler use as prescribed. 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 #Heart failure: *Likely needs PPM,Continue medications as prescribed. Follow up with cardiology. #Atrial fibrillation: Continue medications as prescribed. #Hypertension: Continue medications as prescribed. #Hyperlipidemia: Continue medications as prescribed. #History of prostate cancer, s/p radiation tx 2018: Continue medications as prescribed. Continue following up with urology. #Vivid dreams, tremors, migraine-like headaches, continue f/u with neuro , improving, continue following up with neurology. continue medications as prescribed. DNR Reviewed with patient the importance of medication [...] software and direct typing Please excuse inadvertent rotary drier or typing errors, or uncorrected word substitutions Although every attempt has been made by the provider to proofread this document, occasional misspellings and typographical errors may still be present Due to the previous pandemic, and the use of personal protective equipment (PPE) This may decrease voice recognition accuracy Inadvertent rotary drier errors may occur 05/11/2023 Unspecified atrial fibrillation (ICD-10 - I48.91) Pt presents for Chronic disease management follow-up visit. #Umbilical hernia: continue to monitor. #Asthma: continue inhaler use as prescribed. 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 #Heart failure: *Likely needs PPM,Continue medications as prescribed. Follow up with cardiology. #Atrial fibrillation: Continue medications as prescribed. #Hypertension: Continue medications as prescribed. #Hyperlipidemia: Continue medications as prescribed. #History of prostate cancer, s/p radiation tx 2018: Continue medications as prescribed. Continue following up with urology. #Vivid dreams, tremors, migraine-like headaches, continue f/u with neuro , improving, continue following up with neurology. continue medications as prescribed. DNR Reviewed with patient the importance of medication [...] software and direct typing Please excuse inadvertent rotary drier or typing errors, or uncorrected word substitutions Although every attempt has been made by the provider to proofread this document, occasional misspellings and typographical errors may still be present Due to the previous pandemic, and the use of personal protective equipment (PPE) This may decrease voice recognition accuracy Inadvertent rotary drier errors may occur 09/09/2023 Chronic systolic heart [...] log exercise and discussed fitness Apps like [employer] which can help keep log off calories [...] gave form for that as well as [place] order for life sustaining treatment. I screen [...] software and direct typing Please excuse inadvertent rotary drier or typing errors, or uncorrected word substitutions Although every attempt has been made by the provider to proofread this document, occasional misspellings and typographical errors may still be present Due to the previous pandemic, and the use of personal protective equipment (PPE) This may decrease voice recognition accuracy Inadvertent rotary drier errors may occur 01/10/2024 Depression, unspecified depression [...] software and direct typing Please excuse inadvertent rotary drier or typing errors, or uncorrected word substitutions Although every attempt has been made by the provider to proofread this document, occasional misspellings and typographical errors may still be present Due to the previous pandemic, and the use of personal protective equipment (PPE) This may decrease voice recognition accuracy Inadvertent rotary drier errors may occur 01/10/2024 Unspecified atrial fibrillation [...] software and direct typing Please excuse inadvertent rotary drier or typing errors, or uncorrected word substitutions Although every attempt has been made by the provider to proofread this document, occasional misspellings and typographical errors may still be present Due to the previous pandemic, and the use of personal protective equipment (PPE) This may decrease voice recognition accuracy Inadvertent rotary drier errors may occur 05/11/2023 Morbid obesity (ICD-10 - E66.01) Pt presents for Chronic disease management follow-up visit. #Umbilical hernia: continue to monitor. #Asthma: continue inhaler use as prescribed. 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 #Heart failure: *Likely needs PPM,Continue medications as prescribed. Follow up with cardiology. #Atrial fibrillation: Continue medications as prescribed. #Hypertension: Continue medications as prescribed. #Hyperlipidemia: Continue medications as prescribed. #History of prostate cancer, s/p radiation tx 2017: Continue medications as prescribed. Continue following up with urology. #Vivid dreams, tremors, migraine-like headaches, continue f/u with neuro , improving, continue following up with neurology. continue medications as prescribed. DNR Reviewed with patient the importance of medication [...] software and direct typing Please excuse inadvertent rotary drier or typing errors, or uncorrected word substitutions Although every attempt has been made by the provider to proofread this document, occasional misspellings and typographical errors may still be present Due to the previous pandemic, and the use of personal protective equipment (PPE) This may decrease voice recognition accuracy Inadvertent rotary drier errors may occur 09/09/2023 Asthma, unspecified asthma [...] log exercise and discussed fitness Apps like [employer] which can help keep log off calories [...] software and direct typing Please excuse inadvertent rotary drier or typing errors, or uncorrected word substitutions Although every attempt has been made by the provider to proofread this document, occasional misspellings and typographical errors may still be present Due to the previous pandemic, and the use of personal protective equipment (PPE) This may decrease voice recognition accuracy Inadvertent rotary drier errors may occur 09/09/2023 Depression, unspecified depression [...] log exercise and discussed fitness Apps like [employer] which can help keep log off calories [...] software and direct typing Please excuse inadvertent rotary drier or typing errors, or uncorrected word substitutions Although every attempt has been made by the provider to proofread this document, occasional misspellings and typographical errors may still be present Due to the previous pandemic, and the use of personal protective equipment (PPE) This may decrease voice recognition accuracy Inadvertent rotary drier errors may occur 05/11/2023 Cardiomyopathy, unspecified type (ICD-10 - I42.9) Pt presents for Chronic disease management follow-up visit. #Umbilical hernia: continue to monitor. #Asthma: continue inhaler use as prescribed. 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 #Heart failure: *Likely needs PPM,Continue medications as prescribed. Follow up with cardiology. #Atrial fibrillation: Continue medications as prescribed. #Hypertension: Continue medications as prescribed. #Hyperlipidemia: Continue medications as prescribed. #History of prostate cancer, s/p radiation tx 2018: Continue medications as prescribed. Continue following up with urology. #Vivid dreams, tremors, migraine-like headaches, continue f/u with neuro , improving, continue following up with neurology. continue medications as prescribed. DNR Reviewed with patient the importance of medication [...] software and direct typing Please excuse inadvertent rotary drier or typing errors, or uncorrected word substitutions Although every attempt has been made by the provider to proofread this document, occasional misspellings and typographical errors may still be present Due to the previous pandemic, and the use of personal protective equipment (PPE) This may decrease voice recognition accuracy Inadvertent rotary drier errors may occur 01/10/2024 Morbid obesity (ICD-10 [...] software and direct typing Please excuse inadvertent rotary drier or typing errors, or uncorrected word substitutions Although every attempt has been made by the provider to proofread this document, occasional misspellings and typographical errors may still be present Due to the previous pandemic, and the use of personal protective equipment (PPE) This may decrease voice recognition accuracy Inadvertent rotary drier errors may occur 01/10/2024 Cardiomyopathy, unspecified type [...] software and direct typing Please excuse inadvertent rotary drier or typing errors, or uncorrected word substitutions Although every attempt has been made by the provider to proofread this document, occasional misspellings and typographical errors may still be present Due to the previous pandemic, and the use of personal protective equipment (PPE) This may decrease voice recognition accuracy Inadvertent rotary drier errors may occur 09/09/2023 Unspecified atrial fibrillation [...] log exercise and discussed fitness Apps like [employer] which can help keep log off calories [...] gave form for that as well as [place] order for life sustaining treatment. I screen [...] software and direct typing Please excuse inadvertent rotary drier or typing errors, or uncorrected word substitutions Although every attempt has been made by the provider to proofread this document, occasional misspellings and typographical errors may still be present Due to the previous pandemic, and the use of personal protective equipment (PPE) This may decrease voice recognition accuracy Inadvertent rotary drier errors may occur 05/11/2023 Hyperlipidemia, unspecified hyperlipidemia type (ICD-10 - E78.5) Pt presents for Chronic disease management follow-up visit. #Umbilical hernia: continue to monitor. #Asthma: continue inhaler use as prescribed. 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 #Heart failure: *Likely needs PPM,Continue medications as prescribed. Follow up with cardiology. #Atrial fibrillation: Continue medications as prescribed. #Hypertension: Continue medications as prescribed. #Hyperlipidemia: Continue medications as prescribed. #History of prostate cancer, s/p radiation tx 2018: Continue medications as prescribed. Continue following up with urology. #Vivid dreams, tremors, migraine-like headaches, continue f/u with neuro , improving, continue following up with neurology. continue medications as prescribed. 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 #Umbilical hernia: continue to monitor. #Asthma: continue inhaler use as prescribed. 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 #Heart failure: *Likely needs PPM,Continue medications as prescribed. Follow up with cardiology. #Atrial fibrillation: Continue medications as prescribed. #Hypertension: Continue medications as prescribed. #Hyperlipidemia: Continue medications as prescribed. #History of prostate cancer, s/p radiation tx 2018: Continue medications as prescribed. Continue following up with urology. #Vivid dreams, tremors, migraine-like headaches, continue f/u with neuro , improving, continue following up with neurology. continue medications as prescribed. DNR Reviewed with patient the importance of medication [...] software and direct typing Please excuse inadvertent rotary drier or typing errors, or uncorrected word substitutions Although every attempt has been made by the provider to proofread this document, occasional misspellings and typographical errors may still be present Due to the previous pandemic, and the use of personal protective equipment (PPE) This may decrease voice recognition accuracy Inadvertent rotary drier errors may occur 09/09/2023 Morbid obesity (ICD-10 [...] log exercise and discussed fitness Apps like [employer] which can help keep log off calories [...] software and direct typing Please excuse inadvertent rotary drier or typing errors, or uncorrected word substitutions Although every attempt has been made by the provider to proofread this document, occasional misspellings and typographical errors may still be present Due to the previous pandemic, and the use of personal protective equipment (PPE) This may decrease voice recognition accuracy Inadvertent rotary drier errors may occur 01/10/2024 Chronic anticoagulation (ICD-10 [...] software and direct typing Please excuse inadvertent rotary drier or typing errors, or uncorrected word substitutions Although every attempt has been made by the provider to proofread this document, occasional misspellings and typographical errors may still be present Due to the previous pandemic, and the use of personal protective equipment (PPE) This may decrease voice recognition accuracy Inadvertent rotary drier errors may occur 09/09/2023 Cardiomyopathy, unspecified type [...] log exercise and discussed fitness Apps like [employer] which can help keep log off calories [...] software and direct typing Please excuse inadvertent rotary drier or typing errors, or uncorrected word substitutions Although every attempt has been made by the provider to proofread this document, occasional misspellings and typographical errors may still be present Due to the previous pandemic, and the use of personal protective equipment (PPE) This may decrease voice recognition accuracy Inadvertent rotary drier errors may occur 05/11/2023 Vitamin D deficiency, unspecified (ICD-10 - E55.9) Pt presents for Chronic disease management follow-up visit. #Umbilical hernia: continue to monitor. #Asthma: continue inhaler use as prescribed. 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 #Heart failure: *Likely needs PPM,Continue medications as prescribed. Follow up with cardiology. #Atrial fibrillation: Continue medications as prescribed. #Hypertension: Continue medications as prescribed. #Hyperlipidemia: Continue medications as prescribed. #History of prostate cancer, s/p radiation tx 2018: Continue medications as prescribed. Continue following up with urology. #Vivid dreams, tremors, migraine-like headaches, continue f/u with neuro , improving, continue following up with neurology. continue medications as prescribed. DNR Reviewed with patient the importance of medication [...] software and direct typing Please excuse inadvertent rotary drier or typing errors, or uncorrected word substitutions Although every attempt has been made by the provider to proofread this document, occasional misspellings and typographical errors may still be present Due to the previous pandemic, and the use of personal protective equipment (PPE) This may decrease voice recognition accuracy Inadvertent rotary drier errors may occur 09/09/2023 Chronic anticoagulation (ICD-10 [...] log exercise and discussed fitness Apps like [employer] which can help keep log off calories [...] software and direct typing Please excuse inadvertent rotary drier or typing errors, or uncorrected word substitutions Although every attempt has been made by the provider to proofread this document, occasional misspellings and typographical errors may still be present Due to the previous pandemic, and the use of personal protective equipment (PPE) This may decrease voice recognition accuracy Inadvertent rotary drier errors may occur 05/11/2023 Hyperlipidemia, unspecified (ICD-10 - E78.5) Pt presents for Chronic disease management follow-up visit. #Umbilical hernia: continue to monitor. #Asthma: continue inhaler use as prescribed. 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 #Heart failure: *Likely needs PPM,Continue medications as prescribed. Follow up with cardiology. #Atrial fibrillation: Continue medications as prescribed. #Hypertension: Continue medications as prescribed. #Hyperlipidemia: Continue medications as prescribed. #History of prostate cancer, s/p radiation tx 2018: Continue medications as prescribed. Continue following up with urology. #Vivid dreams, tremors, migraine-like headaches, continue f/u with neuro , improving, continue following up with neurology. continue medications as prescribed. DNR Reviewed with patient the importance of medication [...] software and direct typing Please excuse inadvertent rotary drier or typing errors, or uncorrected word substitutions Although every attempt has been made by the provider to proofread this document, occasional misspellings and typographical errors may still be present Due to the previous pandemic, and the use of personal protective equipment (PPE) This may decrease voice recognition accuracy Inadvertent rotary drier errors may occur 05/11/2023 Hypothyroidism, unspecified type (ICD-10 - E03.9) Pt presents for Chronic disease management follow-up visit. #Umbilical hernia: continue to monitor. #Asthma: continue inhaler use as prescribed. 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 #Heart failure: *Likely needs PPM,Continue medications as prescribed. Follow up with cardiology. #Atrial fibrillation: Continue medications as prescribed. #Hypertension: Continue medications as prescribed. #Hyperlipidemia: Continue medications as prescribed. #History of prostate cancer, s/p radiation tx 2018: Continue medications as prescribed. Continue following up with urology. #Vivid dreams, tremors, migraine-like headaches, continue f/u with neuro , improving, continue following up with neurology. continue medications as prescribed. DNR Reviewed with patient the importance of medication [...] software and direct typing Please excuse inadvertent rotary drier or typing errors, or uncorrected word substitutions Although every attempt has been made by the provider to proofread this document, occasional misspellings and typographical errors may still be present Due to the previous pandemic, and the use of personal protective equipment (PPE) This may decrease voice recognition accuracy Inadvertent rotary drier errors may occur PLAN OF TREATMENT Pending Test Test Name Order Date X ray : Chest with 2 views 03/12/2023 Hemoglobin A1c 01/31/2019 Vitamin B12 01/31/2019 Lipid Panel 01/31/2019 Comp. Metabolic Panel (14) 01/31/2019 CBC 01/31/2019 Urinalysis 01/31/2019 MRI : Brain with and without contrast 25OH VITAMIN D 05/11/2023 25OH VITAMIN D 05/06/2021 CBC (COMPLETE BLOOD COUNT) 01/01/2020 CBC (COMPLETE BLOOD COUNT) 05/06/2021 CBC (COMPLETE BLOOD COUNT) 06/14/2020 CBC (COMPLETE BLOOD COUNT) 11/24/2017 CBC (COMPLETE BLOOD COUNT) WITH DIFF COMPREHENSIVE METABOLIC PANEL 05/11/2023 COMPREHENSIVE METABOLIC PANEL 05/06/2021 COMPREHENSIVE METABOLIC PANEL 01/01/2020 COMPREHENSIVE METABOLIC PANEL 11/24/2017 COMPREHENSIVE METABOLIC PANEL 06/14/2020 HEMOGLOBIN A1C 06/14/2020 HEMOGLOBIN A1C 01/01/2020 HEMOGLOBIN A1C 05/06/2021 LIPID PANEL 05/06/2021 LIPID PANEL 01/01/2020 LIPID PANEL 05/11/2023 LIPID PANEL 06/14/2020 MAGNESIUM 11/24/2017 TSH 05/11/2023 TSH 05/06/2021 URINALYSIS W/REFLEX CULTURE 05/11/2023 URINALYSIS, COMPLETE 01/01/2020 LIPID PANEL, STANDARD 05/05/2022 COMPREHENSIVE METABOLIC PANEL 05/05/2022 CBC (INCLUDES DIFF/PLT) 05/05/2022 URINALYSIS, COMPLETE 05/05/2022 HEMOGLOBIN A1c 05/05/2022 T4, FREE 05/05/2022 TSH 05/05/2022 VITAMIN D,25-OH,TOTAL,IA 05/05/2022 COMPLETE URINALYSIS 05/06/2021 COMPLETE URINALYSIS 06/14/2020 Future Test Test Name Order Date T4, TOTAL 12/23/2021 TSH 12/23/2021 Next Appt Details Provider Name:LORIN LONGMaría, 05/11/2024 09:15:00 AM, [address] [facility], [address], [place], [address], Insurance Providers Payer Name Payer Address Payer Phone Subscriber Number Group Number Insured Name Patient Relationship to Insured Coverage Start Date Coverage End Date Medicare Part B [id number] [address] [place] [id number] KAMAR LEE Self - patient is the insured [address] [place] [address] [address] [place] [address] [id number] KAMAR LEE Self - patient is the insured MEDICAL (GENERAL) HISTORY Medical History History ICD Code hypertension hypercholesterolemia constipation asthma BPH Chronic pain a fib Transient ischemic attack Surgical History Surgery Date(Month/Year) 2009 joy open heart 04/14/2017, heart valve replace ment Pacemaker dr. Tan @ [facility]
== END 2024-03-21 09:11 | disposition home or self-care (01) ==
LOC: HO.ACS 08:48
PROVIDERS: PCP Internal Medicine; Visit Provider Internal Medicine
DX: Z79.01 Long term (current) use of anticoagulants (principal)